=== PATIENT | female | born 1950 | race Caucasian/White ===

== ENCOUNTER → 2017-07-06 09:00 | Outpatient (CLI) | payer MEDICARE, BC ==
[2015-09-15 09:56] VITALS: BMI 30.2
[~2017-07-06 09:00] MED LIST: ACIPHEX20 MG PO; AMOXICILLIN500 M1 PO; ATIVAN0.5 MG PO; BAYER CHEWABLE81 MG PO; BRILINTA90 MG PO; BUPROPION HCL100 M1 PO; BUPROPION HCL200 M1 PO; CATAPRES0.2 MG PO; CELEXA40 MG PO; CORDARONE200 MG PO; CYCLOBENZAPRINE10 MG PO; ESTRACE2 MG PO; HYDROCODONE-APA1 TAB PO; LASIX40 MG PO; LEXAPRO5 MG PO; MOBIC7.5 MG PO; MULTIPLE VITAMI1 TA1 PO; NEURONTIN 300300 MG PO; NEXIUM40 MG PO; NITROSTAT0.4 MG SL; NORVASC5 MG PO; PERCOCET 10/3251 TA1 PO; PREMARIN1.25 MG PO; PRINIVIL20 MG; PROTONIX40 MG PO; REMERON15 MG PO; SYNTHROID75 MCG PO; TIROSINT50 MCG PO; ZESTORETIC 20/21 TAB PO
== END | disposition home or self-care (01) ==
LOC: D.MAMMO 09:00
DX: N64.4 Mastodynia (principal)

== ENCOUNTER → 2017-07-18 07:52 | Outpatient (CLI) | payer MEDICARE, BC ==
[2015-09-15 09:56] VITALS: BMI 30.2
== END ==
LOC: D.MRI 07:52
DX: M75.41 Impingement syndrome of right shoulder (principal)

== ENCOUNTER → 2017-08-24 14:51 | Outpatient (CLI) | payer MEDICARE, BC ==
[2015-09-15 09:56] VITALS: BMI 30.2
== END | disposition home or self-care (01) ==
LOC: D.US 14:51 → D.MRI 16:30
DX: R42 Dizziness and giddiness (principal); R29.898 Other symptoms and signs involving the musculoskeletal system; Z87.898 Personal history of other specified conditions

== ENCOUNTER → 2017-08-29 16:29 | Outpatient (CLI) | payer MEDICARE, BC ==
[2015-09-15 09:56] VITALS: BMI 30.2
== END | disposition home or self-care (01) ==
LOC: D.MAMMO 08-28 08:30 → D.US 08-28 09:30 → D.MAMMO 13:30
DX: R92.8 Other abnormal and inconclusive findings on diagnostic imaging of breast (principal)

== ENCOUNTER 2017-09-03 16:58 | Observation (INO) | payer MEDICARE, BC ==
[~2017-09-03] VITALS: Ht 162.6 cm; Wt 79.8 kg
--- NOTE | ~2017-09-03 | HEMODYNAMI ---
PATIENT:SURAJ GALVIN MEDICAL RECORD: [id number] : 50 LOCATION:[facility] D.2121 ADMISSION DATE: 09/03/17 Generatedon:09/04/201715:13 Patient name: SURAJ GALVIN Patient #: [id number] SSN: D OB: 1950 Date of study: 09/04/2017 Page: Of Hemodynamic Procedure Report Patient Data Patient Demographics Procedure consent was obtained First Name: SURAJ Gender: Female Last Name: GLENIS : 1950 [facility] Initial: D Age: 67 year(s) Patient #: [id number] Race: Additional ID: [id number] Contact details [address]: [address] [place] [address] State: [place] City: [place] Zip code: [address] Past Medical History Allergies Allergen Reaction Date Comments Reported Other allergy 09/10/2015 TIZANIDINE,AND LATEX Other allergy 09/04/2017 TIZANIDINE, LATEX Admission Admission Data Admission Date: 09/03/2017 Admission Time: 19:05 Room #: D.2121 Lab Results Lab Result Date: 09/04/2017 Lab Result Time: 0:00 Biochemistry Name Units Result Min Max BUN mg/dl 22 --(----)-* 7 18 Creatinine mg/dl 1.3 --(---*)-- 0.6 1.3 CBC Name Units Result Min Max Hemoglobin g/dl 13.1 -*(----)-- 13.5 17.5 Procedure Procedure Types Cath Procedure Diagnostic Procedure LHC LHC w/Coronaries PCI Procedure Coronary Stent Coronary Stent Initial Miscellaneous Procedures Moderate Sedation up to 45 minutes Procedure Description Procedure Date Procedure Date: 09/04/2017 Procedure Start Time: 14:33 Procedure End Time: 15:13 Procedure Staff Name Function Ugo Foley MD Performing Physician Shobha Barron RT Scrub Martin Rachel RN Nurse Shiva Mckay RT Monitor Procedure Data Cath Procedure Fluoroscopy Diagnostic fluoroscopy Total fluoroscopy Time: 8 time: 8 min min Diagnostic fluoroscopy Total fluoroscopy dose: 759 dose: 759 mGy mGy Contrast Material Contrast Material Type Amount (ml) Isovue 300 173 Entry Location Entry Primary Successful Side Size Upsize Upsize Entry Closure Succes sful Closure Location (Fr) 1 (Fr) 2 (Fr) Remarks Device Remarks Femoral Right 5 Fr 6 Fr Exoseal artery Short Estimated blood loss: 10 ml Diagnostic catheters Device Type Used For End Catheter Placement DIAGNOSTIC JL 4.0 5Fr Procedure catheter ([id number]) DIAGNOSTIC AR MOD 5Fr Procedure Catheter ([id number]) DIAGNOSTIC Pigtail 5Fr Procedure catheter ([id number]) Procedure Complications No complications Procedure Medications Medication Administration Route Dosage 0.9% NaCl I.V. 100 ml/hr Oxygen NC 2 l/min Heparin Flush Bag added to field 2 bags (1000units/500ml NS) Lidocaine 2% added to field 20 Versed I.V. 1 mg Fentanyl I.V. 50 mcg Heparin Bolus I.V. 7800 units Nitroglycerin IC/IA I.C. 100 mcg Fentanyl I.V. 25 mcg Brilinta P.O. 180 mg Hemodynamics Rest HGB: 13.1 (g/dl) Heart Rate: 63 (bpm) Pressure Samples Time Site Value (mmHg) Purpose Heart Use Rate(bpm) 14:45 LV 120/4,17 Snapshot 66 14:46 AO 139/70(101) Pullback 64 14:46 LV 134/5,20 Pullback 64 Gradients Valve Time Site 1 Site 2 Mean SEP/DFP Peak To Heart Use (mmHg) (sec/min) Peak Rate (mmHg) (bpm) Aortic 14:46 LV AO 0 15 0 64 134/5,20 139/70(101) Calculations Valve P-P Mean Valve Index Valve Source Name Gradient Area Flow (cm2) Aortic 0 0 0 0 Snapshots Pre Cath Intra NCS Post Cath Vital Signs Time Heart Resp SPO2 etCO2 NIBP (mmHg) Rhythm Pain Sedation Rate (ipm) (%) (mmHg) Status Level (bpm) 14:21:48 69 13 95 42.1 119/73(102) NSR 0 (11) 10(A) , No pain 14:26:22 62 16 95 9 118/74(93) NSR 0 (11) 10(A) , No pain 14:30:55 63 26 96 27.1 125/78(109) NSR 0 (11) 10(A) , No pain 14:35:29 63 16 97 39.2 137/76(116) NSR 0 (11) 10(A) , No pain 14:40:07 66 22 96 10.5 127/69(93) NSR 0 (11) 10(A) , No pain 14:44:42 66 20 97 41.4 129/77(113) NSR 0 (11) 10(A) , No pain 14:49:18 64 19 97 41.4 133/78(104) NSR 0 (11) 10(A) , No pain 14:53:57 65 15 97 43.7 119/66(89) NSR 0 (11) 10(A) , No pain 14:58:31 65 19 97 43.7 130/74(94) NSR 0 (11) 10(A) , No pain 15:03:08 66 19 97 43.7 132/71(100) NSR 0 (11) 10(A) , No pain 15:07:46 61 13 97 49.7 106/63(86) NSR 0 (11) 10(A) , No pain 15:12:19 61 11 96 35.4 107/65(86) NSR 0 (11) 10(A) , No pain Medications Time Medication Route Dose Verified Delivered Reason Notes Effectiveness by by 14:19:21 0.9% NaCl I.V. 100 Neo Neo Per physician ml/hr Jorge Patel RN RN 14:19:39 Oxygen NC 2 Neo Neo Per physician l/min Jorge Patel RN RN 14:20:00 Heparin Flush added 2 Neo Neo used for Bag to bags Jorge Patel procedure (1000units/500ml field LANDERS RN NS) 14:20:18 Lidocaine 2% added 20ml Neo Neo for local to vial Jorge Patel anesthetic field LEESA LANDERS 14:33:29 Versed I.V. 1 mg Neo Neo for sedation Jorge Patel RN RN 14:33:39 Fentanyl I.V. 50 Neo Neo for sedation mcg Jorge Patel RN RN 14:49:43 Heparin Bolus I.V. 7,800 Neo Neo for units Jorge harvey RN RN 15:04:39 Nitroglycerin I.C. 100 Neo Ugo for IC/IA mcg Jorge Foley MD vasodilation RN 15:05:39 Fentanyl I.V. 25 Neo Neo for sedation mcg Jorge Patel RN RN 15:09:35 Brilinta P.O. 180 Neo Neo for mg Jorge Patel antiplatelet RN RN therapy Procedure Log Time Note 13:42:13 Shiva Nely RT(R) sent for patient. Start room use. 13:42:14 Time tracking: Regular hours 13:42:19 Plan of Care:Hemodynamics will remain stable., Cardiac rhythm will remain stable., Comfort level will be maintained., Respiratory function will remain adequate., Patient/ family verbilizes understanding of procedure., Procedure tolerated without complication., Recovers from procedure without complications.. 14:03:30 Patient received from Med II to CCL 1 Alert and oriented. Tansferred to table in Supine position. 14:03:34 Warm blankets applied, and christina hugger turned on for patient comfort. 14:03:35 Correct patient and procedure confirmed by team. 14:03:36 Signed procedure consent form obtained from patient. 14:03:38 ECG and BP/O2 sat monitors applied to patient. 14:12:01 Vital chart was started 14:12:03 Baseline sample Acquired. 14:12:17 Rhythm: sinus rhythm 14:12:19 Full Disclosure recording started 14:12:31 H&P Date Dictated: 09/03/2017 Within 30 days and on chart.. 14:12:33 Pre-procedure instructions explained to patient. 14:12:33 Pre-op teaching completed and patient verbalized understanding. 14:12:37 Family in patients room. 14:12:43 Patient NPO since Breakfast. 14:13:02 Patient allergic to Other allergyTIZANIDINE, LATEX 14:13:05 Is the patient allergic to Iodine/contrast media? No. 14:13:08 Is patient on blood thinner?Yes 14:13:18 ACC The patient was administered the following blood thiners within the last 24 hours: ACCAspirin 14:13:21 Patient diabetic? No. 14:13:24 Patient not . Patient is over age 55. 14:13:42 Previous problem with sedation/anesthesia? Yes CONFUSION 14:13:45 Snore? Yes 14:13:46 Sleep apnea? No 14:13:47 Deviated septum? No 14:13:48 Opens mouth fully? Yes 14:13:49 Sticks out tongue? Yes 14:14:19 Airway obstruction? No ? 14:14:24 Dentures? Yes INTIGHT 14:14:30 Pre procedure: right dorsailis pedis pulse 2+ Normal; easily identifiable; not easily obliterated 14:14:34 Patient pain scale 0/10 ?. 14:15:22 IV patent on arrival in left wrist with 0.9% NaCl at [facility]. 14:15:51 Lab Result : BUN 22 mg/dl 14:15:51 Lab Result : Hemoglobin 13.1 g/dl 14:15:51 Lab Result : Creatinine 1.3 mg/dl 14:16:02 Lab results completed and on chart. 14:16:07 Right Radial & Right Groin area was prepped with chlora-prep and draped in sterile fashion 14:16:10 Alarms reviewed by R. N. 14:16:11 Sharps counted by scrub and verified by R.N. 14:19:21 0.9% NaCl 100 ml/hr I.V. was administered by Neo Patel RN; Per physician; 14:19:39 Oxygen 2 l/min NC was administered by Neo Patel RN; Per physician; 14:20:00 Heparin Flush Bag (1000units/500ml NS) 2 bags added to field was administered by Neo Patel RN; used for procedure; 14:20:18 Lidocaine 2% 20ml vial added to field was administered by Neo Patel RN; for local anesthetic; 14:20:52 Vital chart was stopped 14:20:56 Vital chart was started 14:22:20 --------ALL STOP TIME OUT------ 14:22:21 Final Timeout: patient, procedure, and site verified with staff and physician. All members of the team are in agreement. 14:22:25 Right groin site verified by team. 14:22:28 Physical assessment completed. ASA score P 2 - A patient with mild systemic disease as per Ugo Foley MD. 14:22:32 Sedation plan: IV Moderate Sedation Medication:Versed, Fentanyl 14:23:31 ACIST Syringe (89659) opened to sterile field. 14:23:32 ACIST Hand Control (12895) opened to sterile field. 14:23:33 ACIST Manifold (54166) opened to sterile field. 14:23:35 Tegaderm 4 x 4 (1626W) opened to sterile field. 14:23:38 DIAGNOSTIC WIRE .035 260cm J wire (037962) opened to sterile field. 14:23:39 SHEATH 5FR [place] (FAJ509) opened to sterile field. 14:23:40 Bag Decanter (2002S) opened to sterile field. 14:23:44 PERCUTANEOUS ENTRY 19GA needle opened to sterile field. 14:31:08 Zero performed for pressure channel P1 14:33:24 Procedure started. 14:33:29 Versed 1 mg I.V. was administered by Neo Patel RN; for sedation; 14:33:29 Local anesthetic to right femoral artery with Lidocaine 2% by Ugo Foley MD.INITIAL ACCESS ONLY 14:33:39 Fentanyl 50 mcg I.V. was administered by Neo Patel RN; for sedation; 14:34:35 A 5 Fr sheath was inserted into the Right Femoral artery 14:35:25 A DIAGNOSTIC JL 4.0 5Fr catheter ([id number]) was advanced over the wire and used for Procedure. 14:35:46 LCA angiography performed. 14:36:33 Catheter removed. 14:36:53 A DIAGNOSTIC AR MOD 5Fr Catheter (695760P) was advanced over the wire and used for Procedure. 14:37:42 RCA angiography performed. 14:38:34 SVG to Diag occluded. 14:38:47 Catheter removed. 14:39:07 DXT CATHETER ADVANCED OVER THE WIRE TO SEE THE TURNER 14:40:37 TURNER to LAD angiography performed. 14:44:24 Catheter exchanged over wire. 14:44:28 A DIAGNOSTIC Pigtail 5Fr catheter (721259V) was advanced over the wire and used for Procedure. 14:44:58 INFLATOR Merit BasixCompak (VE9121) opened to sterile field. 14:44:59 SHEATH 6FR [place] (HQM729) opened to sterile field. 14:44:59 TUBING High Pressure Extension Tubing (Og) ([id number]) opened to sterile field. 14:45:55 EF : 60 % 14:46:07 LV hemodynamics recorded. 14:46:09 LV gram done using ORDAZ 14:46:11 Injector settings: Ml/sec: 10, Volume: 20, 14:46:15 Catheter removed. 14:46:23 Sheath upsized to a 6 Fr Short. 14:46:50 BMW 300cm Enterprise 2 J wire (4468415V) opened to sterile field. 14:47:37 GUIDE 6FR XBLAD 3.5 catheter ([id number]) opened to sterile field. 14:47:45 6 Fr XBLAD 3.5 guide catheter was inserted over the wire 14:49:08 BMW wire advanced. 14:49:43 Heparin Bolus 7,800 units I.V. was administered by Neo Patel RN; for anticoagulation; 14:51:30 Wire advanced across lesion. 14:53:54 Inflation number: 1 A EUPHORA 2.0 x 12 Balloon ([id number]) was prepped and advanced across the Dist LAD, then inflated to 8 SHRUTHI for 0:10 (min:sec). 14:54:54 Inflation number: 2 The EUPHORA 2.0 x 12 Balloon ([id number]) was reinflated across the Dist LAD, to 10 SHRUTHI for 0:10 (min:sec). 14:57:57 Balloon removed over the wire. 15:01:53 Inflation Number: 3 A NICOLLE OTW 2.5 x 22 stent ([id number]) was prepped and advanced across the Dist LAD. The stent was deployed at 10 SHRUTHI for 0:10 (min:sec). 15:04:39 Nitroglycerin IC/IA 100 mcg I.C. was administered by Ugo Foley MD; for vasodilation; 15:05:27 Stent catheter was removed intact over wire. 15:05:39 Fentanyl 25 mcg I.V. was administered by Neo Patel RN; for sedation; 15:05:40 Wire removed. 15:05:59 Guide catheter removed. 15:07:05 EXOSEAL 6Fr (EX600) opened to sterile field. 15:07:13 Procedure ended.(Physican Out) 15:07:24 Sheath removed intact; hemostasis achieved with Exoseal to the Right Femoral artery. 15:08:09 Fluoroscopy time 08.00 minutes. 15:08:13 Flurop Dose total: 759 15:08:13 Fluoroscopy dose: 759 mGy 15:08:17 Contrast amount:Isovue 300 173ml. 15:08:19 Sharps counted by scrub and verified by R.N. 15:08:21 Insertion/operative site no bleeding no hematoma. 15:08:25 Post-op/insertion site Right Femoral artery dressed using a 4 x 4 and Tegaderm. 15:08:27 Post Procedure Pulses reassessed and unchanged 15:08:29 Post procedure: right dorsailis pedis pulse 2+ Normal; easily identifiable; not easily obliterated. 15:08:34 Post-procedure physical assessment completed. ASA score P 2 - A patient with mild systemic disease as per Ugo Foley MD. 15:08:37 Post procedure rhythm: unchanged. 15:08:40 Estimated blood loss: 10 ml 15:08:42 Post procedure instruction explained to patient.Patient verbalizes understanding. 15:08:46 Patient needs reinforcement of post procedure teaching. 15:09:35 Brilinta 180 mg P.O. was administered by Neo Patel RN; for antiplatelet therapy; 15:09:37 Procedure type changed to Cath procedure, Diagnostic procedure, LHC, LHC w/Coronaries, PCI procedure, Coronary Stent, Coronary Stent Initial, Miscellaneous Procedures, Moderate Sedation up to 45 minutes 15:11:40 Procedure and supply charges have been captured, reviewed, submitted and are correct. 15:11:42 Procedure Complication : No complications 15:11:47 See physician's report for complete and final results. 15:11:50 Report given to PCU. 15:11:54 Patient transfered to PCU with Bed. 15:13:17 Procedure ended. 15:13:17 Full Disclosure recording stopped 15:13:23 End room use (Document Last) 15:13:36 Vital chart was stopped Intervention Summary Intervention Notes Time ActionType Lesion and Equipment Action# Pressure Duration Attributes Used 14:53:54 Inflate Dist LAD EUPHORA 2.0 x 1 8 00:10 balloon 12 Balloon ([id number]) 14:54:54 Reinflate Dist LAD EUPHORA 2.0 x 2 10 00:10 balloon 12 Balloon ([id number]) 15:01:53 Place stent Dist LAD NICOLLE OTW 2.5 3 10 00:10 x 22 stent ([id number]) Device Usage Item Name Manufacture Quantity Catalog Hospital Part Current Minim al Lot# / Number Charge Number Stock Stock Serial# Code ACIST Syringe Acist 1 75250 810453 382038 488758 20 (10213) Medical Systems Inc ACIST Hand Acist 1 76567 374012 977333 477517 5 Control Medical (73726) Systems Inc ACIST Acist 1 37538 556974 599405 772133 5 Manifold Medical (29817) Systems Inc Tegaderm 4 x 3M 1 1626W 522304 159362 736450 5 4 (1626W) DIAGNOSTIC St Manuel 1 803457 041857 098251 916453 30 WIRE .035 260cm J wire (316196) SHEATH 5FR Terumo 1 ITZ548 211165 176172 274665 40 [place] (LNZ649) Bag Decanter Microtek 1 2001S 774940 41475 849568 5 (2001S) Medical Inc. PERCUTANEOUS Cook Medical 1 K12787 311217 989974 5 ENTRY 19GA needle DIAGNOSTIC JL Cardinal 1 869977D 400493 293104 362035 10 4.0 5Fr Health catheter (025941L) DIAGNOSTIC AR Cardinal 1 [id number] 494145 917691 528985 15 MOD 5Fr Health Catheter (048624L) DIAGNOSTIC Cardinal 1 093119L 795246 028829 998881 5 Pigtail 5Fr Health catheter (743984S) INFLATOR Merit 1 WN5696 994115 684424 531191 15 [facility] Medical BasixCompak (QL7092) SHEATH 6FR Terumo 1 UEC398 000876 114876 198487 40 [place] (ERI577) TUBING High Merit 1 NS4788C 470920 64910 512843 10 Pressure Medical Extension Tubing (Foley) (XM4007S) BMW 300cm Harrington 1 [id number] 304431 260753 649223 5 Enterprise 2 J Vascular wire (0106465H) GUIDE 6FR Cardinal 1 49688143 325317 347542 882829 10 XBLAD 3.5 Health catheter (55927752) EUPHORA 2.0 x Medtronic 1 [id number] 528039 333727 641747 5 [id number] 12 Balloon (XLP1537U) NICOLLE OTW 2.5 Medtronic 1 [id number] 554608 25695 163289 5 [id number] x 22 stent ([id number]) EXOSEAL 6Fr Cardinal 1 EX600 446131 515135 917218 10 (EX600) Health Signature Audit Robbins Stage Time Signature Unsigned Intra-Procedure 09/04/2017 Shobha Barron 3:13:34 PM RT(R) Signatures Monitor : Shiva Mckay RT Signature : Date : Time : [address] [place] [address]
[~2017-09-03 16:58] MED LIST changes: -ACIPHEX20 MG PO; -ATIVAN0.5 MG PO; -BRILINTA90 MG PO; -BUPROPION HCL200 M1 PO; -NITROSTAT0.4 MG SL
[2017-09-03 17:33] LABS: BASOPHILS 1.2 % (0-2); EOSINOPHILS 7.8 % (0-7); HEMOGLOBIN 13.1 g/dL (12-16); LYMPHOCYTES 43.8 % (15-50); MCH 33.2 pg (26.0-34.0); MCHC 33.6 g/dL (31.0-37.0); MCV 98.7 fL (80.0-100.0); MEAN PLATELET VOLUME 9.4 fL (7.4-10.4); MONOCYTES 8.6 % (2-11); NEUTROPHILS 38.6 % (40-80); RBC 3.95 10x6/uL (4.00-5.40); RDW 12.5 % (11.5-14.5); WBC 6.9 10x3/uL (4.8-10.8)
[2017-09-03 17:55] LABS: PLATELET COUNT 307 10x3/uL (130-400)
[2017-09-03 18:10] LABS: ALBUMIN 3.1 g/dL (3.4-5.0); ALKALINE PHOSPHATASE 74 U/L (46-116); ALT (SGPT) 32 U/L (10-68); BILIRUBIN - TOTAL 0.44 mg/dL (0.2-1.3); CALC OSMOLALITY 280 mosm/kg (275-300); CALCIUM 8.9 mg/dL (8.5-10.1); CARBON DIOXIDE 31.5 mmol/L (21.0-32.0); CHLORIDE - SERUM 98 mmol/L (98-107); CREATININE - SERUM 1.3 mg/dL (0.6-1.3); GLUCOSE 88 mg/dL (74-106); POTASSIUM - SERUM 3.8 mmol/L (3.5-5.1); PROTEIN - SERUM 7.1 g/dL (6.4-8.2); SODIUM 140 mmol/L (136-145); UREA NITROGEN 22 mg/dL (7-18); eGFR NON AFRICAN AMERICAN 43 mL/min (90-120)
[2017-09-03 18:22] LABS: CHOL - HDL RATIO 4.5 ratio (2.3-4.1); CHOLESTEROL, TOTAL 236 mg/dL (0-200); CKMB 1.1 U/L (0.0-3.6); CREATINE KINASE 76 UL (21-215); HDL CHOLESTEROL 52 mg/dL (32-96); LDL CHOLESTEROL 138 mg/dL (0-100); LDL-HDL RATIO 2.7 ratio (1.5-3.5); PRO BNP 502 pg/mL (0-125); TRIGLYCERIDE 230 mg/dL (30-200)
[2017-09-03 18:26] LABS: TROPONIN-I < 0.017 ng/mL (0.000-0.060)
[2017-09-03 20:05] LABS: CREATINE KINASE 73 UL (21-215)
[2017-09-03 20:21] LABS: TROPONIN-I < 0.017 ng/mL (0.000-0.060)
--- NOTE | 2017-09-03 20:42 | NUR ---
REPORT RECIEVED FROM GLEN IN ER.
--- NOTE | 2017-09-03 21:15 | NUR ---
ADMIT TO ROOM 2121 FROM ER. ALERT/ORIENTED. ADMISSION ASSESMENT AND HISTORY COMPLETED. HOME MEDS REVIEWED. INITIATE PLAN OF CARE.
[2017-09-03 21:44] VITALS: BP 130/72
--- NOTE | 2017-09-03 22:09 | NUR ---
PT C/O CHEST PRESSURE/DISCOMFORT. SR PER TELEMETRY. MORPHINE 4MGS SIVP GIVEN AD O2 @ 2L/NC IN PLACE. WILL MONITOR.
--- NOTE | 2017-09-03 23:40 | NUR ---
PT STILL WANTING TO HAVE HER IV MOVED OUT OF HER LEFT A/C. REMOVED LEFT A/C IV AMD SITED NEW 20G X 1 ATTEMPT TO LFA. PT NOW HAPPY.
[2017-09-04] VITALS: BP 107/58
[2017-09-04 02:09] LABS: CKMB 1.3 U/L (0.0-3.6); CREATINE KINASE 77 UL (21-215); TROPONIN-I < 0.017 ng/mL (0.000-0.060)
[2017-09-04 04:00] VITALS: BP 105/55
--- NOTE | 2017-09-04 07:15 | NUR ---
RESTING QUIETLY DENIES ANY NEEDS OR DISCOMFORT NAD NOTED
[2017-09-04 07:25] VITALS: BP 130/72
[2017-09-04 07:47] VITALS: BP 101/54
[2017-09-04] MEDS ORDERED: BUPROPION HCL200 M1 PO (07:56)
[2017-09-04] MEDS ORDERED: CELEXA40 MG PO (07:57)
[2017-09-04 08:01] LABS: BASOPHILS 0.9 % (0-2); EOSINOPHILS 10.8 % (0-7); HEMATOCRIT 41.5 % (36.0-48.0); HEMOGLOBIN 13.8 g/dL (12-16); IMMATURE GRANULOCYTES 0.1 % (0-5); LYMPHOCYTES 49.2 % (15-50); MCH 33.5 pg (26.0-34.0); MCHC 33.3 g/dL (31.0-37.0); MEAN PLATELET VOLUME 9.6 fL (7.4-10.4); PLATELET COUNT 329 10x3/uL (130-400); RBC 4.12 10x6/uL (4.00-5.40); RDW 12.8 % (11.5-14.5); WBC 6.9 10x3/uL (4.8-10.8)
[2017-09-04] MEDS ORDERED: ATIVAN0.5 MG PO (08:03)
[2017-09-04] MEDS ORDERED: ACIPHEX20 MG PO (08:05)
[2017-09-04 08:07] LABS: MCV 100.7 fL (80.0-100.0)
[2017-09-04] MEDS ORDERED: NITROSTAT0.4 MG SL (08:08)
[2017-09-04 08:28] LABS: CALC OSMOLALITY 279 mosm/kg (275-300); CALCIUM 9.1 mg/dL (8.5-10.1); CARBON DIOXIDE 34.8 mmol/L (21.0-32.0); CHLORIDE - SERUM 99 mmol/L (98-107); CKMB 1.5 U/L (0.0-3.6); CREATINE KINASE 86 UL (21-215); CREATININE - SERUM 1.1 mg/dL (0.6-1.3); GLUCOSE 91 mg/dL (74-106); POTASSIUM - SERUM 3.9 mmol/L (3.5-5.1); SODIUM 139 mmol/L (136-145); TROPONIN-I < 0.017 ng/mL (0.000-0.060); UREA NITROGEN 17 mg/dL (7-18); eGFR NON AFRICAN AMERICAN 52 mL/min (90-120)
--- NOTE | 2017-09-04 08:31 | NUR ---
ASSESSMENT DONE. DENIES NEEDS. NPO FOR CATH
[2017-09-04 11:31] VITALS: BP 108/62
[2017-09-04 13:15] VITALS: Ht 162.6 cm; Wt 79.8 kg
--- NOTE | 2017-09-04 14:05 | NUR ---
TO COURSEWARE DEVELOPER PER BED
--- NOTE | 2017-09-04 15:30 | NUR ---
RETURN FROM [employer] PER BED. DRSG TO RT GROIN C/D/I, PULSE PALP
[2017-09-04 15:40] VITALS: BP 108/60
[2017-09-04] MEDS ORDERED: BRILINTA90 MG PO (17:09)
--- NOTE | 2017-09-04 17:28 | NUR ---
WITHOUT CHANGES OR DISTRESS NOTED AT THIS TIME. FAMILY AT SIDE.
--- NOTE | 2017-09-04 19:30 | NUR ---
PT SET UP IN BED. NO BLEEDING TO RIGHT GROIN. PT DENIES ANY DISCOMFORT. WENT OVER DISCHARGE INSTRUCTIONS WITH PT AND DAUGHTER. PT AND DAUGHTER DENY ANY QUESTIONS OR CONCERNS. IV REMOVED FROM LEFT WRIST. CATH INTACT. TELEMETRY REMOVED AND RETURNED TO SENIOR AUDIT MANAGER. ALL BELONGINGS TAKEN FROM ROOM AND PT TRANSPORTED TO VEHICLE VIA WHEEL CHAIR BY DAIANA LANDERS. PT TO PASSENGER SEAT WITH STAND BY ASSIST. PT DISCHARGED.
== END 2017-09-04 20:05 | disposition home or self-care (01) ==
LOC: D.ER 16:58 → OBSVTIME 19:05 → D.M2 19:05
PROVIDERS: Family Medicine; ADMIT Internal Medicine Cardiovascular Disease
DX: I25.110 Atherosclerotic heart disease of native coronary artery with unstable angina pectoris (principal); Z95.1 Presence of aortocoronary bypass graft; I10 Essential (primary) hypertension; I34.0 Nonrheumatic mitral (valve) insufficiency; I45.10 Unspecified right bundle-branch block
CPT/HCPCS: 93459; C9600

== ENCOUNTER 2017-10-18 17:37 | Inpatient (IN) | payer MEDICARE, BC ==
[~2017-10-18] VITALS: Ht 160 cm; Wt 72.0 kg
--- NOTE | ~2017-10-18 | HP ---
PATIENT: SURAJ TY MEDICAL RECORD: [id number] ACCOUNT: [id number] LOCATION:[address] : 50 ADMISSION DATE: 10/18/17 HISTORY AND PHYSICAL EXAMINATION HISTORY OF PRESENT ILLNESS: Ms. Ty is a 67-year-old white female that is patient of Dr. Foley. She lives in [place] where her primary care physician is there, who presents to the hospital here with just generalized weakness and body jerking. She underwent stenting here approximately [address] Foley. She has a known history of coronary artery disease and has had a previous bypass surgery about 2 years ago. After receiving stent, she apparently developed a bad UTI and was hospitalized at [facility] for over a week where she subsequently went home. Since being at home, she has just not done very well, she has not ambulated much, she has been tired, just not doing very much. She is having difficulties with ambulating and she has had jerking in her lower leg. She does have restless leg syndrome, but states this seems more like her legs are jerking hard. PAST MEDICAL HISTORY: Significant for known coronary artery disease, hypertension, mitral valve regurg, depression, right bundle-branch block, hypothyroidism, chronic orthopedic issues. PAST SURGICAL HISTORY: Include gallbladder surgery, hysterectomy, left knee replacement, right ankle replacement, CABG in 2014, PTCA a month ago. ALLERGIES: TIZANIDINE AND LASIX. HOME MEDICATIONS: At this time include cyclobenzaprine 10 mg daily, Brilinta 90 mg b.i.d., lisinopril and hydrochlorothiazide 20/25, Celexa 40 mg a day, baby aspirin a day, gabapentin 800 mg t.i.d., bupropion SR 200 mg b.i.d., lorazepam 0.5 p.r.n., meloxicam 7.5 a day, oxycodone 10/325 p.r.n., furosemide 60 mg a day, Aciphex 20 mg a day, levothyroxine 75 mcg a day, estradiol 2 mg daily, and a multivitamin. FAMILY HISTORY: Noncontributory. SOCIAL HISTORY: The patient does not smoke or drink. REVIEW OF SYSTEMS: Generalized weakness, jerking in her legs, chronic restless leg. She has had no chest pain, no shortness of breath, no nausea or vomiting. She does complain of left shoulder pain and hardly being able to move her shoulder. Her x-ray shows nothing acute right now. PHYSICAL EXAMINATION: GENERAL: She is conversive. She is alert and oriented. HEENT: Head is normocephalic. NECK: Soft and supple. HEART: Regular. LUNGS: Good breath sounds bilaterally. ABDOMEN: Soft. EXTREMITIES: Lower extremities reveal no edema. NEUROLOGIC: Grossly intact. IMPRESSION: 1. Generalized weakness. HISTORY AND PHYSICAL [id number] SURAJ TY 2. Recent hospitalization for sepsis. 3. Recent percutaneous transluminal coronary angioplasty. 4. Muscle spasms. 5. Coronary artery disease. 6. Hypothyroidism. 7. Chronic anxiety and depression. 7. Hypertension. PLAN: Admit, IV fluids. She has got a certain amount of renal insufficiency right now. She is also hyponatremic. Her sodium is improving. Her TSH is slightly off, but is not enough to change medicine. Her magnesium levels are okay. We will get a physical therapy consult. She may benefit from some inpatient rehabilitation eventually. We will continue pain medicines well. She might benefit from an injection to her shoulder. We will consult Dr. Foley on med. We will hold her estradiol and meloxicam due to recent stenting. See orders for plan. TRANSINT:[id number] Voice Confirmation ID: [id number] DOCUMENT ID: [id number] ROSAURA ORTEZ DO at 1545 CC: [id number] DICTATION DATE: 10/19/17 1043 TECHNICAL WRITING LEAD/MGR: 10/19/17 1203 ADM IN [address] [address] [place] [address]
[~2017-10-18 17:37] MED LIST changes: +ACIPHEX20 MG PO; +ATIVAN0.5 MG PO; +BRILINTA90 MG PO; +BUPROPION HCL200 M1 PO; +NITROSTAT0.4 MG SL
[2017-10-18 18:50] LABS: BASOPHILS 0.6 % (0-2); EOSINOPHILS 10.6 % (0-7); HEMATOCRIT 36.3 % (36.0-48.0); HEMOGLOBIN 12.3 g/dL (12-16); IMMATURE GRANULOCYTES 0.1 % (0-5); MCH 32.9 pg (26.0-34.0); MCHC 33.9 g/dL (31.0-37.0); MCV 97.1 fL (80.0-100.0); MEAN PLATELET VOLUME 9.4 fL (7.4-10.4); MONOCYTES 13.8 % (2-11); NEUTROPHILS 42.9 % (40-80); PLATELET COUNT 321 10x3/uL (130-400); RBC 3.74 10x6/uL (4.00-5.40); RDW 12.8 % (11.5-14.5); WBC 6.9 10x3/uL (4.8-10.8)
[2017-10-18 19:10] LABS: ALBUMIN 3.1 g/dL (3.4-5.0); ANION GAP 12.6 mmol/L (8-16); BILIRUBIN - TOTAL 0.58 mg/dL (0.2-1.3); CARBON DIOXIDE 29.2 mmol/L (21.0-32.0); CREATININE - SERUM 1.9 mg/dL (0.6-1.3); POTASSIUM - SERUM 3.8 mmol/L (3.5-5.1); PROTEIN - SERUM 6.7 g/dL (6.4-8.2)
[2017-10-18 19:11] LABS: APPEARANCE CLEAR (CLEAR); BILIRUBIN NEGATIVE (NEGATIVE); COLOR YELLOW (YELLOW); GLUCOSE NEGATIVE (NEGATIVE); KETONE NEGATIVE (NEGATIVE); NITRITE NEGATIVE (NEGATIVE); PROTEIN NEGATIVE (NEGATIVE); SPECIFIC GRAVITY 1.015 (1.005-1.020); UROBILINOGEN NORMAL (NORMAL)
[2017-10-18 20:42] LABS: MAGNESIUM - SERUM 2.2 mg/dL (1.8-2.4); THYROID STIMULATING HORMONE 5.62 uIU/mL (0.36-3.74)
[2017-10-19 03:36] VITALS: BP 124/52; BMI 29.2
[2017-10-19 04:45] LABS: EOSINOPHILS 13.3 % (0-7); HEMATOCRIT 34.8 % (36.0-48.0); HEMOGLOBIN 11.8 g/dL (12-16); IMMATURE GRANULOCYTES 0.1 % (0-5); LYMPHOCYTES 43.7 % (15-50); MCH 32.9 pg (26.0-34.0); MCHC 33.9 g/dL (31.0-37.0); MCV 96.9 fL (80.0-100.0); MEAN PLATELET VOLUME 9.4 fL (7.4-10.4); MONOCYTES 13.7 % (2-11); NEUTROPHILS 28.2 % (40-80); PLATELET COUNT 325 10x3/uL (130-400); RBC 3.59 10x6/uL (4.00-5.40); RDW 12.7 % (11.5-14.5); WBC 7.2 10x3/uL (4.8-10.8)
[2017-10-19 04:58] LABS: ANION GAP 11.2 mmol/L (8-16); CALCIUM 8.5 mg/dL (8.5-10.1); CARBON DIOXIDE 29.4 mmol/L (21.0-32.0); CREATININE - SERUM 1.7 mg/dL (0.6-1.3); POTASSIUM - SERUM 3.6 mmol/L (3.5-5.1)
[2017-10-19 08:49] VITALS: BP 110/70
[2017-10-19 14:34] VITALS: Ht 160 cm; Wt 72.0 kg
[2017-10-19 21:10] VITALS: BP 112/67
[2017-10-20 02:43] VITALS: BP 83/45
[2017-10-20 05:44] LABS: BASOPHILS 0.6 % (0-2); EOSINOPHILS 11.3 % (0-7); HEMATOCRIT 34.7 % (36.0-48.0); HEMOGLOBIN 11.7 g/dL (12-16); IMMATURE GRANULOCYTES 0.1 % (0-5); LYMPHOCYTES 29.8 % (15-50); MCH 32.9 pg (26.0-34.0); MCHC 33.7 g/dL (31.0-37.0); MCV 97.5 fL (80.0-100.0); MEAN PLATELET VOLUME 9.6 fL (7.4-10.4); MONOCYTES 14.3 % (2-11); NEUTROPHILS 43.9 % (40-80); PLATELET COUNT 315 10x3/uL (130-400); RBC 3.56 10x6/uL (4.00-5.40); WBC 8.3 10x3/uL (4.8-10.8)
[2017-10-20 05:57] LABS: ANION GAP 12.9 mmol/L (8-16); CALCIUM 8.9 mg/dL (8.5-10.1); CARBON DIOXIDE 29.8 mmol/L (21.0-32.0); CREATININE - SERUM 1.5 mg/dL (0.6-1.3); POTASSIUM - SERUM 3.7 mmol/L (3.5-5.1)
[2017-10-20 09:21] VITALS: BP 123/60
[2017-10-20 11:53] VITALS: BP 117/63
[2017-10-20 15:06] VITALS: BP 112/69
[2017-10-20 20:00] VITALS: BP 124/69
[2017-10-21] VITALS: BP 152/53
[2017-10-21 05:26] LABS: EOSINOPHILS 13.4 % (0-7); HEMATOCRIT 34.9 % (36.0-48.0); HEMOGLOBIN 11.7 g/dL (12-16); IMMATURE GRANULOCYTES 0.1 % (0-5); LYMPHOCYTES 35.8 % (15-50); MCH 32.8 pg (26.0-34.0); MCHC 33.5 g/dL (31.0-37.0); MCV 97.8 fL (80.0-100.0); MEAN PLATELET VOLUME 9.5 fL (7.4-10.4); MONOCYTES 10.9 % (2-11); NEUTROPHILS 38.8 % (40-80); PLATELET COUNT 302 10x3/uL (130-400); RBC 3.57 10x6/uL (4.00-5.40); WBC 8.2 10x3/uL (4.8-10.8)
[2017-10-21 05:50] LABS: ANION GAP 11.1 mmol/L (8-16); CARBON DIOXIDE 31.2 mmol/L (21.0-32.0); CREATININE - SERUM 1.3 mg/dL (0.6-1.3); POTASSIUM - SERUM 3.3 mmol/L (3.5-5.1)
[2017-10-21 08:01] VITALS: BP 131/62
[2017-10-21 11:26] VITALS: BP 120/57
[2017-10-21 15:52] VITALS: BP 128/66
[2017-10-21 20:00] VITALS: BP 117/67
[2017-10-22] VITALS: BP 120/54
[2017-10-22 04:00] VITALS: BP 101/54
[2017-10-22 05:40] LABS: BASOPHILS 0.7 % (0-2); EOSINOPHILS 10.3 % (0-7); HEMOGLOBIN 12.1 g/dL (12-16); IMMATURE GRANULOCYTES 0.1 % (0-5); LYMPHOCYTES 45.7 % (15-50); MCH 32.9 pg (26.0-34.0); MCHC 33.6 g/dL (31.0-37.0); MCV 97.8 fL (80.0-100.0); MEAN PLATELET VOLUME 9.4 fL (7.4-10.4); MONOCYTES 11.3 % (2-11); NEUTROPHILS 31.9 % (40-80); PLATELET COUNT 322 10x3/uL (130-400); RBC 3.68 10x6/uL (4.00-5.40); RDW 13.2 % (11.5-14.5); WBC 8.1 10x3/uL (4.8-10.8)
[2017-10-22 06:06] LABS: ANION GAP 11.3 mmol/L (8-16); CALCIUM 9.4 mg/dL (8.5-10.1); CARBON DIOXIDE 29.9 mmol/L (21.0-32.0); CREATININE - SERUM 1.1 mg/dL (0.6-1.3); POTASSIUM - SERUM 4.2 mmol/L (3.5-5.1)
[2017-10-22 08:20] VITALS: BP 141/54
[2017-10-22 12:19] VITALS: BP 113/58
== END 2017-10-22 15:29 | disposition home health service (06) | DRG 641 ==
LOC: D.ER 17:37 → D.M2 21:35
PROVIDERS: Emergency Medicine; Family Medicine
DX: E87.1 Hypo-osmolality and hyponatremia (principal); M75.122 Complete rotator cuff tear or rupture of left shoulder, not specified as traumatic; R41.0 Disorientation, unspecified; W19.XXXA Unspecified fall, initial encounter; Z91.81 History of falling; G25.81 Restless legs syndrome; I25.10 Atherosclerotic heart disease of native coronary artery without angina pectoris; I10 Essential (primary) hypertension; F32.9 Major depressive disorder, single episode, unspecified; F41.9 Anxiety disorder, unspecified; E03.9 Hypothyroidism, unspecified; Z95.1 Presence of aortocoronary bypass graft; N28.9 Disorder of kidney and ureter, unspecified

== ENCOUNTER 2017-10-25 13:52 | Inpatient (IN) | payer MEDICARE, BC ==
[~2017-10-25] VITALS: Ht 160 cm; Wt 72.7 kg
--- NOTE | ~2017-10-25 | CN ---
PATIENT NAME:SURAJ GALVIN MEDICAL RECORD: [id number] : 50 LOCATION:[address] ADMIT DATE: 10/25/17 ACCOUNT: [id number] CONSULTING PHYSICIAN: ERIC MCCRACKEN III, MD REFERRING PHYSICIAN: GUILLERMO PAUL MD DATE OF CONSULTATION: 10/26/2017 HISTORY OF PRESENT ILLNESS: This is a 67-year-old white female, who was admitted to the hospital yesterday with episodes of weakness and apparent confusion. The patient's previous history was reviewed. The patient had been seen in consultation by this examiner approximately 3 years ago subsequent to a postoperative delirium she exhibited after coronary artery bypass graft. The patient at that time was treated with low dose haloperidol with good resolution of her symptoms. It was not intended at that time that the patient should continue on neuroleptic medication. The patient does have a previous history of anxiety and depression. However, there is no documentation at all of a previous primary psychotic disorder. Nonetheless, the patient was being treated with a wide array of psychotropic medications at the time of admission including routine doses of Haldol, Cogentin, Invega, large dose of Cymbalta, and Klonopin. It should be noted that the patient has had several recent falls. It should also be noted that the patient does have active coronary artery disease. It is not known whether or not she has had neuropsychological testing. The patient herself admits to occasional memory lapses. MENTAL STATUS EXAM: The patient is very pleasant. Mood is euthymic. Affect is bland. Speech is fluent. Content of thought is negative for psychotic symptoms. On sensorium testing, the patient is oriented to person, place, and time. She knows the correct day of the week. Remote, intermediate, and short-term recalling are good. The patient does admit to previous history of depression as well as persistent anxiety. The patient is currently being treated with combination of Wellbutrin and Cymbalta. She had actually been treated with Wellbutrin at some point in the past, but previous recommendation by this examiner was to discontinue this medication; however, it has been continued with the additional meds being added at some point. 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 RECOMMENDATIONS: 1. At this point, the patient does not appear to have any need for antipsychotic medication. Case was discussed with Dr. Paul and medications will be simplified. 2. We would recommend follow up at [facility] in the near future for reassessment. CONSULT REPORT [id number] SURAJ GALVIN TRANSINT:[id number] Voice Confirmation ID: [id number] DOCUMENT ID: [id number] ERIC MCCRACKEN III, MD at 0727 CC: [id number] DICTATION DATE: 10/26/17 1207 NETWORK FIREWALL ENGINEER: 10/26/17 1231 ADM IN [address] [address] [place] [address]
[2017-10-25 16:57] LABS: BASOPHILS 1.2 % (0-2); EOSINOPHILS 6.6 % (0-7); HEMATOCRIT 37.7 % (36.0-48.0); HEMOGLOBIN 12.6 g/dL (12-16); LYMPHOCYTES 43.8 % (15-50); MCH 33.3 pg (26.0-34.0); MCHC 33.4 g/dL (31.0-37.0); MCV 99.7 fL (80.0-100.0); MEAN PLATELET VOLUME 9.3 fL (7.4-10.4); MONOCYTES 12.2 % (2-11); NEUTROPHILS 36.2 % (40-80); PLATELET COUNT 363 10x3/uL (130-400); RBC 3.78 10x6/uL (4.00-5.40); RDW 13.3 % (11.5-14.5); WBC 6.7 10x3/uL (4.8-10.8)
[2017-10-25 17:11] LABS: ALBUMIN 3.5 g/dL (3.4-5.0); ANION GAP 11.6 mmol/L (8-16); BILIRUBIN - TOTAL 0.62 mg/dL (0.2-1.3); CALCIUM 9.1 mg/dL (8.5-10.1); CARBON DIOXIDE 29.3 mmol/L (21.0-32.0); CREATININE - SERUM 1.2 mg/dL (0.6-1.3); POTASSIUM - SERUM 3.9 mmol/L (3.5-5.1); PROTEIN - SERUM 7.3 g/dL (6.4-8.2)
[2017-10-25 17:11] LABS: INR 0.97 (0.85-1.17); PROTIME 12.5 SECONDS (11.6-15.0)
[2017-10-25 17:14] LABS: APPEARANCE HAZY (CLEAR); BILIRUBIN NEGATIVE (NEGATIVE); COLOR DK YELLOW (YELLOW); GLUCOSE NEGATIVE (NEGATIVE); KETONE NEGATIVE (NEGATIVE); NITRITE NEGATIVE (NEGATIVE); PROTEIN NEGATIVE (NEGATIVE); UROBILINOGEN NORMAL (NORMAL)
[2017-10-25 17:30] LABS: CKMB 1.1 U/L (0.0-3.6); CREATINE KINASE 66 UL (21-215)
[2017-10-25 17:40] LABS: TROPONIN-I < 0.017 ng/mL (0.000-0.060)
[2017-10-25 21:06] LABS: UDS - AMPHET NEGATIVE QUAL (NEGATIVE); UDS - BARB NEGATIVE QUAL (NEGATIVE); UDS - BENZO NEGATIVE QUAL (NEGATIVE); UDS - COCAINE NEGATIVE QUAL (NEGATIVE); UDS - OPIATE NEGATIVE QUAL (NEGATIVE); UDS - PCP NEGATIVE QUAL (NEGATIVE); UDS - THC NEGATIVE QUAL (NEGATIVE)
[2017-10-25 22:40] VITALS: BP 130/72; BMI 28.4
[2017-10-26 04:00] VITALS: BP 115/65
[2017-10-26 05:45] LABS: BASOPHILS 0.8 % (0-2); EOSINOPHILS 5.9 % (0-7); HEMATOCRIT 32.7 % (36.0-48.0); HEMOGLOBIN 10.7 g/dL (12-16); IMMATURE GRANULOCYTES 0.3 % (0-5); LYMPHOCYTES 40.2 % (15-50); MCH 32.8 pg (26.0-34.0); MCHC 32.7 g/dL (31.0-37.0); MCV 100.3 fL (80.0-100.0); MEAN PLATELET VOLUME 9.2 fL (7.4-10.4); MONOCYTES 9.4 % (2-11); NEUTROPHILS 43.4 % (40-80); PLATELET COUNT 319 10x3/uL (130-400); RBC 3.26 10x6/uL (4.00-5.40); RDW 13.3 % (11.5-14.5); WBC 7.2 10x3/uL (4.8-10.8)
[2017-10-26 06:12] LABS: ANION GAP 10.4 mmol/L (8-16); BILIRUBIN - TOTAL 0.41 mg/dL (0.2-1.3); CALCIUM 8.2 mg/dL (8.5-10.1); CARBON DIOXIDE 27.6 mmol/L (21.0-32.0); CREATININE - SERUM 1.1 mg/dL (0.6-1.3); PROTEIN - SERUM 5.6 g/dL (6.4-8.2)
[2017-10-26 06:13] LABS: ALBUMIN 2.5 g/dL (3.4-5.0)
[2017-10-26 08:55] VITALS: BP 132/69
[2017-10-26 13:01] VITALS: BP 122/68
[2017-10-26 16:26] VITALS: Ht 160 cm; Wt 72.7 kg
[2017-10-26 16:31] VITALS: BP 121/65
[2017-10-26 23:18] VITALS: BP 129/52
[2017-10-27 02:11] VITALS: BP 146/67
[2017-10-27 04:56] VITALS: BP 113/75
[2017-10-27 05:58] LABS: HEMATOCRIT 35.8 % (36.0-48.0); LYMPHOCYTES 45.1 % (15-50); MCH 32.9 pg (26.0-34.0); MCHC 33.5 g/dL (31.0-37.0); MEAN PLATELET VOLUME 8.6 fL (7.4-10.4); NEUTROPHILS 43.3 % (40-80); PLATELET COUNT 369 10x3/uL (130-400); RBC 3.65 10x6/uL (4.00-5.40); RDW 12.8 % (11.5-14.5); WBC 6.8 10x3/uL (4.8-10.8)
[2017-10-27 06:09] LABS: MCV 98.1 fL (80.0-100.0)
[2017-10-27 06:14] LABS: ANION GAP 10.6 mmol/L (8-16); CARBON DIOXIDE 30.7 mmol/L (21.0-32.0)
[2017-10-27 06:18] LABS: POTASSIUM - SERUM 3.3 mmol/L (3.5-5.1)
[2017-10-27 09:24] VITALS: BP 138/71
[2017-10-27 12:48] VITALS: BP 136/70
[2017-10-27 16:10] VITALS: BP 117/63
[2017-10-27 22:20] VITALS: BP 122/71
[2017-10-28 01:15] VITALS: BP 123/77
[2017-10-28 05:05] VITALS: BP 123/77
[2017-10-28 07:53] VITALS: BP 130/61
[2017-10-28] MEDS ORDERED: BUPROPION HCL200 M1 PO (08:23)
[2017-10-28] MEDS ORDERED: CELEXA40 MG PO (08:24)
== END 2017-10-28 11:15 | disposition home health service (06) | DRG 71 ==
LOC: D.ER 13:52 → D.PSYCH 20:06 → D.MS 21:38 → OBSVTIME 21:39 → D.MS 10-27 17:29
PROVIDERS: Family Medicine; Internal Medicine Nephrology
DX: G93.40 Encephalopathy, unspecified (principal); F33.9 Major depressive disorder, recurrent, unspecified; N17.9 Acute kidney failure, unspecified; E44.0 Moderate protein-calorie malnutrition; R53.1 Weakness; R29.6 Repeated falls; I10 Essential (primary) hypertension; E03.9 Hypothyroidism, unspecified; E78.5 Hyperlipidemia, unspecified; Z95.1 Presence of aortocoronary bypass graft; M75.122 Complete rotator cuff tear or rupture of left shoulder, not specified as traumatic; Z68.28 Body mass index [BMI] 28.0-28.9, adult

== ENCOUNTER 2017-12-27 10:50 | Day surgery (SDC) | payer MEDICARE, BC ==
[2017-12-25 11:03] LABS: HEMATOCRIT 37.6 % (36.0-48.0); HEMOGLOBIN 12.2 g/dL (12-16); MCH 31.7 pg (26.0-34.0); MCHC 32.4 g/dL (31.0-37.0); MCV 97.7 fL (80.0-100.0); MEAN PLATELET VOLUME 9.6 fL (7.4-10.4); RBC 3.85 10x6/uL (4.00-5.40); RDW 12.1 % (11.5-14.5); WBC 7.5 10x3/uL (4.8-10.8)
[2017-12-25 11:24] LABS: ANION GAP 12.5 mmol/L (8-16); CREATININE - SERUM 1.1 mg/dL (0.6-1.3); POTASSIUM - SERUM 3.5 mmol/L (3.5-5.1)
[~2017-12-27] VITALS: Ht 160 cm; Wt 72.6 kg
--- NOTE | ~2017-12-27 | OP ---
PATIENT NAME: SURAJ GALVIN MEDICAL RECORD: [id number] :50 LOCATION:[facility] ADMISSION DATE: SURGEON: DIANE BOSCH MD DATE OF OPERATION: 12/27/2017 PREOPERATIVE DIAGNOSIS: Nonrepairable rotator cuff tear of the left shoulder. POSTOPERATIVE DIAGNOSIS: Nonrepairable rotator cuff tear of the left shoulder. PROCEDURE: Left superior capsular reconstruction with capsulorrhaphy and rotator cuff repair augment. SURGEON: Diane Bosch MD ANESTHESIA: General. INTRAOPERATIVE COMPLICATIONS: None. SUMMARY OF PATHOLOGIC FINDINGS: In keeping the patient's MRI, the patient had a retracted supraspinatus tendon, very good subscapularis and infraspinatus to attach the dermal patch to. OPERATIVE SUMMARY IN DETAIL: After obtaining the appropriate preoperative orthopedic surgery consent as well as anesthetic consultation, evaluation, and clearance, the patient was brought to the operating room and placed on the operating table in supine position. After general laryngeal mask airway was administered, the patient was placed in the beach chair position. All pressure points were well padded. She was held firmly to the operating table using the vacuum pack suction system. Left upper extremity and shoulder were then prepped and draped in routine sterile fashion. The arm was held in Trimano arm holding device. Anterolateral approach was made from the acromioclavicular joint across the lateral aspect of the acromion and down approximately 2.5 cm from the lateral aspect of the deltoid. Subperiosteal dissection was carried out to create a very good leaf of periosteum for reapproximation. This was retracted and the torn rotator cuff was noted. Formal acromioplasty was followed by excision of 1 cm of the distal clavicle. At this point, the superior aspect of the glenoid was cleaned and prepared for the graft. Having completed this, 3 SutureTak with FiberWire were then placed at approximately the 11, 12 and 1 o'clock positions of the glenoid. Appropriate measurements were taken. The graft was taken to the back field where it was trimmed to the appropriate size. All 6 tails of the SutureTak were passed through the graft using the Scorpion and then it was nicely parachuted down into the superior aspect of the glenoid where it was tied nicely with the FiberWire. Having completed this, the arm was placed in approximately 30 degrees of abduction, 10 degrees of forward flexion. The lateral aspect of the FCR was then anchored down using SpeedBridge from Ar[employer] along with augmentation anteriorly with another SwiveLock. Having completed this, [id number] reapproximation of the subscapularis to the Dermagraft was completed with 0 FiberWire as was the infraspinatus posteriorly. Repair looked nice. Copious irrigation was then followed by reapproximation of the deltoid back to the acromion using an imbricated kvngr-qzjq-[id number] style suture transosseously to reapproximate the deltoid back to the acromion. Further Ethibond was used to close the deep fascial layer followed by #1 Vicryl, 2-0 Vicryl and skin hiram. Sterile dressings were applied. The patient was placed in a large abduction pillow splint, awakened, and taken to recovery room in stable condition. All final needle and sponge counts were correct. OPERATIVE REPORT [id number] SURAJ GALVIN TRANSINT:[id number] Voice Confirmation ID: [id number] DOCUMENT ID: [id number] DANITZA MONTE, DIANE CHAU at 1341 CC: [id number] DICTATION DATE: 01/07/18 2324 SUPERVISOR COMPRESSED YEAST: 01/08/18 0959 [facility] 12/27/17 [id number] [place] [address]
[~2017-12-27 10:50] MED LIST changes: +BUSPAR10 MG PO; +FUROSEMIDE20 MG PO; +HYDROCHLOROTHIA50 MG PO; +KLOR-CON M2020 MEQ PO; +LASIX20 MG PO; -LASIX40 MG PO; +REMERON30 MG PO; +SEROQUEL25 MG PO
[2017-12-27] MEDS ORDERED: BRILINTA90 MG PO (11:31)
[2017-12-27 11:39] VITALS: Ht 160 cm; Wt 72.6 kg
== END 2017-12-27 19:23 | disposition home or self-care (01) ==
LOC: D.OPS 10:50 → D.PAN 13:00 → D.OPS 15:00 → D.PAN 15:00 → D.OPS 19:23
PROVIDERS: Anesthesiology
DX: M75.122 Complete rotator cuff tear or rupture of left shoulder, not specified as traumatic (principal); E03.9 Hypothyroidism, unspecified; K21.9 Gastro-esophageal reflux disease without esophagitis; M19.90 Unspecified osteoarthritis, unspecified site; I10 Essential (primary) hypertension; I25.10 Atherosclerotic heart disease of native coronary artery without angina pectoris; Z95.1 Presence of aortocoronary bypass graft; Z01.812 Encounter for preprocedural laboratory examination

== ENCOUNTER 2017-12-29 06:08 | Emergency (ER) | payer MEDICARE, BC ==
[2017-12-27 11:39] VITALS: BMI 28.4
== END 2017-12-29 08:28 | disposition home or self-care (01) ==
LOC: D.ER 06:08
DX: G89.18 Other acute postprocedural pain (principal); S16.1XXA Strain of muscle, fascia and tendon at neck level, initial encounter; W19.XXXA Unspecified fall, initial encounter; Y93.89 Activity, other specified; Y92.019 Unspecified place in single-family (private) house as the place of occurrence of the external cause; I45.4 Nonspecific intraventricular block

== ENCOUNTER 2017-12-31 15:32 | Outpatient (CLI) | payer MEDICARE, BC ==
[~2017-12-31] VITALS: Ht 160 cm; Wt 77.9 kg
--- NOTE | ~2017-12-31 | HEMODYNAMI ---
PATIENT:SURAJ GALVIN MEDICAL RECORD: [id number] : 50 LOCATION:D. D.2118 ADMISSION DATE: 12/31/17 Generatedon:01/01/20188:14 Patient name: SURAJ GALVIN Patient #: [id number] SSN: D OB: 1950 Date of study: 01/01/2018 Page: Of Hemodynamic Procedure Report Patient Data Patient Demographics Procedure consent was obtained First Name: SURAJ Gender: Female Last Name: GLENIS : 1950 Middle Initial: D Age: 67 year(s) Patient #: [id number] Race: Additional ID: [id number] Contact details Address: [address] [place] [address] State: [place] City: [place] Zip code: [address] Past Medical History Allergies Allergen Reaction Date Comments Reported Other allergy 09/10/2015 TIZANIDINE,AND LATEX Other allergy 09/04/2017 TIZANIDINE, LATEX Admission Admission Data Admission Date: 12/31/2017 Admission Time: 17:28 Admit Source: Other Room #: D.2118 Lab Results Lab Result Date: 12/31/2017 Lab Result Time: 16:40 Biochemistry Name Units Result Min Max BUN mg/dl 22 --(----)-* 7 18 Creatinine mg/dl 1 --(--*-)-- 0.6 1.3 CBC Name Units Result Min Max Hematocrit % 39.6 -*(----)-- 42 54 Hemoglobin g/dl 13.1 -*(----)-- 13.5 17.5 Procedure Procedure Types Cath Procedure Diagnostic Procedure C [facility] w/Coronaries PCI Procedure Coronary Stent Coronary Stent Initial Procedure Description Procedure Date Procedure Date: 01/01/2018 Procedure Start Time: 8:00 Procedure End Time: 8:12 Procedure Staff Name Function Mario Martin MD Performing Physician Steven Whittaker RT Scrub Neo Patel RN Nurse Kayleigh Fournier RT Monitor Procedure Data Cath Procedure Fluoroscopy Diagnostic fluoroscopy Total fluoroscopy Time: 1.9 time: 1.9 min min Diagnostic fluoroscopy Total fluoroscopy dose: 228 dose: 228 mGy mGy Contrast Material Contrast Material Type Amount (ml) Isovue 300 73 Entry Location Entry Primary Successful Side Size Upsize Upsize Entry Closure Succes sful Closure Location (Fr) 1 (Fr) 2 (Fr) Remarks Device Remarks Femoral Right 5 Fr 6 Fr Exoseal artery Short Estimated blood loss: 10 ml Diagnostic catheters Device Type Used For End Catheter Placement MULTIPACK Pigtail 5 Fr LV Angiography catheter MULTIPACK JL 4.0 5Fr Left Coronary catheter Angiography MULTIPACK 3DRC 5Fr Right Coronary catheter Angiography Procedure Complications No complications Procedure Medications Medication Administration Route Dosage 0.9% NaCl I.V. 100 ml/hr Oxygen etCO2 Nasal cannula 2 l/min Heparin Flush Bag added to field 2 bags (1000units/500ml NS) Lidocaine 2% added to field 20 Versed I.V. 2 mg Fentanyl I.V. 100 mcg Fentanyl I.V. 50 mcg Heparin Bolus I.V. 4000 units Fentanyl I.V. 50 mcg Hemodynamics Rest HGB: 13.1 (g/dl) Heart Rate: 63 (bpm) Snapshots Pre Cath Intra NCS Post Cath Vital Signs Time Heart Resp SPO2 NIBP (mmHg) Rhythm Pain Sedation Rate (ipm) (%) Status Level (bpm) 7:36:54 66 13 97 152/85(113) NSR 0 (11) 10(A) , No pain 7:41:39 66 15 99 143/79(112) NSR 0 (11) 10(A) , No pain 7:46:22 62 15 98 110/75(91) NSR 0 (11) 10(A) , No pain 7:50:58 63 13 96 121/77(97) NSR 0 (11) 10(A) , No pain 7:55:37 63 14 97 118/69(90) NSR 0 (11) 10(A) , No pain 8:00:15 66 14 97 125/69(87) NSR 0 (11) 10(A) , No pain 8:04:56 63 14 96 106/59(77) NSR 0 (11) 10(A) , No pain 8:09:33 65 16 95 120/58(83) NSR 0 (11) 10(A) , No pain Medications Time Medication Route Dose Verified Delivered Reason Notes Effectiveness by by 7:40:38 0.9% NaCl I.V. 100 Neo Neo Per physician ml/hr Jorge Patel RN RN 7:41:19 Oxygen etCO2 2 Neo Neo Per physician Nasal l/min Jorge Patel cannula RN RN 7:41:32 Heparin Flush added 2 Neo Neo used for Bag to bags Jorge Patel procedure (1000units/500ml field RN RN NS) 7:41:45 Lidocaine 2% added 20ml Neo Neo for local to vial Jorge Patel anesthetic field RN RN 7:59:19 Versed I.V. 2 mg Neo Neo for sedation Jorge Patel RN RN 7:59:28 Fentanyl I.V. 100 Neo Neo for sedation mcg Jorge Patel RN RN 8:02:17 Fentanyl I.V. 50 Neo Neo for sedation mcg Jorge Patel RN RN 8:06:32 Heparin Bolus I.V. 4000 Neo Neo for units Jorge Patel anticoagulation RN RN 8:10:40 Fentanyl I.V. 50 Neo Neo for sedation mcg Jorge Patel RN ticket sales agent Log Time Note 7:12:24 Informed consent obtained and on chart 7:12:28 Admit Source: Other 7:13:00 Diagnostic Cath status Elective 7:13:01 Time tracking: Regular hours 7:13:05 Plan of Care:Hemodynamics will remain stable., Cardiac rhythm will remain stable., Comfort level will be maintained., Respiratory function will remain adequate., Patient/ family verbilizes understanding of procedure., Procedure tolerated without complication., Recovers from procedure without complications.. 7:13:18 H&P Date Dictated: 12/31/2017 Within 30 days and on chart.. 7:13:59 Lab Result : Hemoglobin 13.1 g/dl 7::59 Lab Result : Creatinine 1 mg/dl 7:13:59 Lab Result : BUN 22 mg/dl 7:13:59 Lab Result : Hematocrit 39.6 % 7:15:03 Kayleigh Fournier RT(R) sent for patient. Start room use. 7:25:38 Patient received from Med II to CCL 1 Alert and oriented. Tansferred to table in Supine position. 7:25:39 Warm blankets applied, and christina hugger turned on for patient comfort. 7:25:39 Correct patient and procedure confirmed by team. 7:25:40 ECG and BP/O2 sat monitors applied to patient. 7:27:34 Full Disclosure recording started 7:35:58 Vital chart was started 7:36:01 Rhythm: sinus rhythm 7:36:05 Pre-procedure instructions explained to patient. 7:36:06 Pre-op teaching completed and patient verbalized understanding. 7:36:09 Family unavailable. 7:36:10 Patient NPO since Midnight. 7:40:38 0.9% NaCl 100 ml/hr I.V. was administered by Neo Patel RN; Per physician; 7:41:15 Is the patient allergic to Iodine/contrast media? No. 7:41:16 Is patient on blood thinner?Yes 7:41:19 Oxygen 2 l/min etCO2 Nasal cannula was administered by Neo Patel RN; Per physician; 7:41:19 ACC The patient was administered the following blood thiners within the last 24 hours: ACCPlavix 7:41:22 Patient diabetic? No. 7:41:25 Previous problem with sedation/anesthesia? No ? 7:41:26 Snore? Yes 7:41:27 Sleep apnea? No 7:41:28 Deviated septum? No 7:41:28 Opens mouth fully? Yes 7:41:29 Sticks out tongue? Yes 7:41:30 Airway obstruction? No ? 7:41:32 Heparin Flush Bag (1000units/500ml NS) 2 bags added to field was administered by Neo Patel RN; used for procedure; 7:41:33 Dentures? Yes OUT 7:41:36 Pre procedure: right dorsailis pedis pulse 2+ Normal; easily identifiable; not easily obliterated 7:41:38 Patient pain scale 0/10 ?. 7:41:45 Lidocaine 2% 20ml vial added to field was administered by Neo Patel RN; for local anesthetic; 7:42:52 PATIENT HAD LEFT SHOUDER SURGERY ON 12/27/[address] BOSCH. IMMOBILIZER REMOVED FOR PROCEDURE. 7:43:05 IV patent on arrival in right wrist with 0.9% NaCl at [facility]. 7:43:08 Lab results completed and on chart. 7:43:13 Right groin area was prepped with chlora-prep and draped in sterile fashion 7:43:14 Alarms reviewed by R. N. 7:43:14 Sharps counted by scrub and verified by R.N. 7:46:51 Physician paged 7:46:54 Zero performed for pressure channel P1 7:47:06 Baseline sample Acquired. 7:57:10 Final Timeout: patient, procedure, and site verified with staff and physician. All members of the team are in agreement. 7:57:13 Right groin site verified by team. 7:57:15 Physical assessment completed. ASA score P 2 - A patient with mild systemic disease as per Mario Martin MD. 7:57:18 Sedation plan: IV Moderate Sedation Medication:Versed, Fentanyl 7:57:23 Use device set Femoral Dx 7:57:25 ACIST Syringe (28164) opened to sterile field. 7:57:25 Bag Decanter (2002S) opened to sterile field. 7:57:26 Medline Cath Pack ([id number]) opened to sterile field. 7:57:27 DIAGNOSTIC WIRE .035 260cm J wire (926683) opened to sterile field. 7:57:28 ACIST Hand Control (52617) opened to sterile field. 7:57:28 ACIST Manifold (37811) opened to sterile field. 7:57:29 DIAGNOSTIC Multipack 5Fr catheter set (VN6109) opened to sterile field. 7:57:29 Tegaderm 4 x 4 (1626W) opened to sterile field. 7:57:30 PERCUTANEOUS ENTRY 19GA needle opened to sterile field. 7:57:51 SHEATH 5Fr Prelude ([id number]) opened to sterile field. 7:59:19 Versed 2 mg I.V. was administered by Neo Patel RN; for sedation; 7:59:28 Fentanyl 100 mcg I.V. was administered by Neo Patel RN; for sedation; 7:59:57 Procedure started. 8:00:01 Local anesthetic to right femoral artery with Lidocaine 2% by Mario Martin MD.INITIAL ACCESS ONLY 8:00:53 A 5 Fr sheath was inserted into the Right Femoral artery 8:02:04 A MULTIPACK Pigtail 5 Fr catheter was advanced over the wire and used for LV Angiography. 8:02:17 Fentanyl 50 mcg I.V. was administered by Neo Patel RN; for sedation; 8:02:33 LV gram done using ORDAZ 8:02:36 Injector settings: Ml/sec: 10, Volume: 20, 8:02:45 EF : 60 % 8:02:46 Catheter removed. 8:03:11 A MULTIPACK JL 4.0 5Fr catheter was advanced over the wire and used for Left Coronary Angiography. 8:03:42 Use device set [facility] PCI 8:03:47 INFLATOR Merit BasixCompak (AD2493) opened to sterile field. 8:03:54 SHEATH 6Fr Prelude ([id number]) opened to sterile field. 8:04:05 GUIDE 6FR XBLAD 4.0 catheter ([id number]) opened to sterile field. 8:04:09 CHOICE PT Extra Support 182cm wire ([id number]) opened to sterile field. 8:04:13 Catheter removed. 8:04:25 A MULTIPACK 3DRC 5Fr catheter was advanced over the wire and used for Right Coronary Angiography. 8:04:45 Catheter removed. 8:04:55 Sheath upsized to a 6 Fr Short. 8:06:24 6 Fr XBLAD 4.0 guide catheter was inserted over the wire 8:06:32 Heparin Bolus 4000 units I.V. was administered by Neo Patel RN; for anticoagulation; 8:07:27 CHOICE PT ES wire advanced. 8:08:25 Place stent Inflation Number: 1 A INTEGRITY RX 2.5 x 08 stent ([id number]) was prepped and advanced across the Mid LAD. The stent was deployed at 13 SHRUTHI for 0:10 (min:sec). 8:08:39 Stent catheter was removed intact over wire. 8:08:39 Wire removed. 8:08:40 Guide catheter removed. 8:08:49 Sheath removed intact; hemostasis achieved with Exoseal to the Right Femoral artery. 8:08:53 Procedure ended.(Physican Out) 8:09:39 EXOSEAL 6Fr (EX600) opened to sterile field. 8:09:48 Fluoroscopy time 01.90 minutes. 8::54 Flurop Dose total: 228 8::54 Fluoroscopy dose: 228 mGy 8:09:59 Contrast amount:Isovue 300 73ml. 8:10:01 Sharps counted by scrub and verified by R.N. 8:10:02 Insertion/operative site no bleeding no hematoma. 8:10:05 Post-op/insertion site Right Femoral artery dressed using a 4 x 4 and Tegaderm. 8:10:08 Post right femoral artery:stable, clean and dry 8:10:10 Post Procedure Pulses reassessed and unchanged 8:10:14 Post-procedure physical assessment completed. ASA score P 2 - A patient with mild systemic disease as per Mario Martin MD. 8:10:18 Post procedure rhythm: unchanged. 8:10:21 Estimated blood loss: 10 ml 8:10:23 Post procedure instruction explained to patient.Patient verbalizes understanding. 8:10:23 Patient needs reinforcement of post procedure teaching. 8:10:31 Procedure type changed to Cath procedure, Diagnostic procedure, LHC, LHC w/Coronaries, PCI procedure, Coronary Stent, Coronary Stent Initial 8:10:40 Fentanyl 50 mcg I.V. was administered by Neo Patel RN; for sedation; 8:10:51 Procedure Complication : No complications 8:10:54 See physician's report for complete and final results. 8:11:57 Procedure and supply charges have been captured, reviewed, submitted and are correct. 8:12:13 Vital chart was stopped 8:12:21 Report given to PCU. 8:12:28 Patient transfered to PCU with Bed. 8:12:36 Procedure ended. 8:12:36 Full Disclosure recording stopped 8:12:38 End room use (Document Last) Intervention Summary Intervention Notes Time ActionType Lesion and Equipment Action# Pressure Duration Attributes Used 8:08:25 Place stent Mid LAD INTEGRITY RX 1 13 00:10 2.5 x 08 stent ([id number]) Device Usage Item Name Manufacture Quantity Catalog Number Hospital Part Current Mini [facility] Lot# / Charge Number Stock Stock Serial# Code ACIST Acist 1 47169 073680 442874 915791 20 Syringe Medical (33872) Systems Inc Bag Decanter Microtek 1 2001S 324623 35654 381742 5 () Medical Inc. Medline Cath Cardinal 1 [id number] 446108 96188 933792 5 Pack [facility] ([id number]) DIAGNOSTIC St Manuel 1 220751 910829 870567 974837 30 WIRE .035 260cm J wire (221747) ACIST Hand Acist 1 05570 780447 520622 647003 5 Control Medical (13300) Systems Inc ACIST Acist 1 91109 838030 757286 175880 5 Manifold Medical (51534) Systems Inc DIAGNOSTIC Cardinal 1 WX4716 804395 99309 506842 30 Multipack Heliospectra 5Fr catheter set (UI7105) Tegaderm 4 x 3M 1 1626W 362540 843295 933616 5 4 (1626W) PERCUTANEOUS Cook Medical 1 N56939 963708 961448 5 ENTRY 19GA needle SHEATH 5Fr Merit 1 [id number] 843520 464213 236050 5 Prelude Medical ([id number]) MULTIPACK Cardinal 1 545899 5 Pigtail 5 Fr Health catheter MULTIPACK JL Cardinal 1 900119 5 4.0 5Fr Health catheter INFLATOR Merit 1 NG8313 244761 451317 239641 15 [facility] Medical BasixCompak (AW3984) SHEATH 6Fr Merit 1 [id number] 345130 587691 351302 5 Prelude Medical ([id number]) GUIDE 6FR Cardinal 1 [id number] 581185 091715 921131 3 XBLAD 4.0 Health catheter ([id number]) CHOICE PT [place] 1 [id number] 918914 568444 771930 5 Extra Scientific Support 182cm wire ([id number]) MULTIPACK Cardinal 1 343026 5 3DRC 5Fr Health catheter INTEGRITY RX Medtronic 1 [id number] 608926 162458 642164 5 [id number] 2.5 x 08 stent ([id number]) EXOSEAL 6Fr Cardinal 1 EX600 773684 783532 898188 10 (EX600) Health Signature Audit [place] Stage Time Signature Unsigned Intra-Procedure 01/01/2018 Kayleigh 8:14:00 AM Counts RT(R) Signatures Monitor : Kayleigh Signature : Counts RT Date : Time : [place] [id number] [place] [id number]
--- NOTE | ~2017-12-31 | OP ---
PATIENT NAME: SURAJ GALVIN MEDICAL RECORD: [id number] :50 LOCATION:D.ER ADMISSION DATE: SURGEON: YULISSA GOODRICH MD DATE OF OPERATION: 01/01/2018 PROCEDURES: 1. PTCA and stent of LAD. 2. Left heart catheterization. 3. Selective coronary angiography. 4. Left ventriculogram. INDICATION: Angina and coronary artery disease. PROCEDURE IN DETAIL: After informed consent was obtained and after detailed explanation of risks, benefits as well as alternative therapies, the patient elected to proceed with angiogram and angioplasty. The right femoral area was prepped and draped in normal sterile fashion. Right femoral artery was cannulated via modified Seldinger technique with placement of 6-Tongan sheath. All catheter exchanged through this sheath. FINDINGS: The left ventriculogram was performed in standard 30-degree ORDAZ view, reveals good cardiac wall motion throughout all segments. Overall ejection fraction estimated at 60%. SELECTIVE CORONARY ANGIOGRAPHY: 1. Left main is with no significant angiographic disease. 2. Left anterior descending has a previously placed stent that is widely patent; however, there is 75% stenosis proximal to that. 3. The left circumflex has mild irregularities, but no flow-limiting stenosis. 4. The right coronary has mild irregularities, but no flow-limiting stenosis. PTCA AND STENT OF THE LAD: The stent used 2.5 x 8-mm Integrity. Result was 0% residual stenosis. OVERALL IMPRESSION: Successful PTCA and stent of the LAD going from 75% initial stenosis to 0% residual. TRANSINT:[id number] Voice Confirmation ID: [id number] DOCUMENT ID: [id number] YULISSA GOODRICH MD at 1056 CC: [id number] DICTATION DATE: 01/01/18 0816 DIGITAL OPERATIONS ANALYST: 01/01/18 1239 [facility] 01/01/18 [place] [address]
--- NOTE | ~2017-12-31 | DS ---
PATIENT:SURAJ TY :50 MEDICAL RECORD: [id number] DISCHARGE SUMMARY ADMISSION DATE: 12/31/17 DISCHARGE DATE: 01/01/18 DISCHARGE DIAGNOSES: 1. Unstable angina. 2. Coronary artery disease. 3. Shortness of breath, dyspnea on exertion. 4. Hyperlipidemia. HOSPITAL COURSE: Mrs. Ty presents with anginal symptomatology, found to have significant disease of the LAD, underwent successful PTCA stent of the LAD, was discharged home with the addition of aspirin and Plavix to her medical regimen. Follow up with [facility] in 1 month. TRANSINT:[id number] Voice Confirmation ID: [id number] DOCUMENT ID: [id number] YULISSA GOODRICH MD at 1056 CC: [id number] DICTATION DATE: 01/01/18813 PATIENT OMBUDSPERSON: 01/01/18 1315 [facility] CLI 01/01/[address] [address]
--- NOTE | ~2017-12-31 | HP ---
PATIENT: SURAJ TY MEDICAL RECORD: [id number] ACCOUNT: [id number] LOCATION:[place] : 50 ADMISSION DATE: 12/31/17 HISTORY AND PHYSICAL EXAMINATION ADMITTING DIAGNOSES: 1. Angina. 2. Shortness of breath - dyspnea on exertion. 3. Recent shoulder surgery. 4. Coronary artery disease, previous multivessel PTCA stent, last being August of 2017. 5. Hypertension. HISTORY OF PRESENT ILLNESS: Ms. yT presents with anginal symptomatology. Last cardiac stent was in August. PHYSICAL EXAMINATION: GENERAL APPEARANCE: Well-nourished, well-developed, appears stated age. Level of distress, comfortable. PSYCHIATRIC: Mental status, alert, normal affect. Orientation, oriented to time, place and person. EYES: Lids and conjunctiva, noninjected. No discharge, no pallor. ENT: Lips, teeth, gums, normal dentition. Oropharynx, no cyanosis, no pallor. NECK: Carotid arteries, bilateral normal upstroke, no bruits, no thrills. JUGULAR VEINS: No jugular venous pressure or distention. CERVICAL LYMPH NODES: Nontender, nonenlarged. THYROID: Not enlarged. Nontender. No nodules. LUNGS: Respiratory effort, unlabored. CHEST: Normal curvature. No thoracic deformity. No chest wall tenderness. Percussion, resonant. Auscultation, clear. No wheezes, no rales, no rhonchi. CARDIOVASCULAR: Precordial exam, nondisplaced. No heaves or pericardial thrills. Rate and rhythm, regular. Heart sounds, normal S1, normal S2. No S3, no gallop, no rub. Systolic murmur, not heard. Diastolic murmur, not heard. EXTREMITIES: No cyanosis, no edema. Peripheral pulses, full and equal in all extremities, except as noted. No bruits appreciated. ABDOMEN: Soft, nondistended. Normal aorta. No bruit. Nontender. No masses. Liver, nontender, no hepatomegaly. Spleen, nontender, no splenomegaly. MUSCULOSKELETAL: No joint tenderness. No joint swelling. No erythema. NEUROLOGICAL: Normal gait, normal strength, normal tone. SKIN: Warm and dry. REVIEW OF SYSTEMS: The patient reports easy bruising but reports no swollen glands. The patient reports no fever, no night sweats, no significant weight gain, no significant weight loss. No significant exercise tolerance. The patient reports no dry eyes, no irritation, no vision change. Patient reports no difficulty hearing and no ear pain. Patient reports no frequent nose bleeds or nose and sinus problems. Patient reports on arm pain on exertion. No shortness of breath while lying down. No history of heart murmur. Patient reports no cough, no wheezing or coughing up blood. Patient reports no abdominal pain, no vomiting. Normal appetite. No diarrhea and not vomiting blood. No nausea and no constipation. Patient reports no incontinence. No difficulty urinating. No hematuria. No increased frequency. Patient reports no muscle aches. No weakness, no arthralgias, no back pain. No swelling of the extremities. Patient reports no abnormal mole, no jaundice, no rashes. Reports no loss of consciousness. No weakness and no numbness. No seizures, dizziness, HISTORY AND PHYSICAL [id number] COGBURN,SURAJ D or headaches. The patient reports no depression, no sleep disturbance, feeling safe in a relationship and no alcohol abuse. Patient reports on fatigue. Reports no runny nose or sinus pressure. No itching, no hives, and no frequent sneezing. OVERALL IMPRESSION: Escalating angina, unstable fashion. Most likely, she has recurrent hemodynamically significant coronary artery disease. We will proceed with coronary angiography. Further care depends upon findings of the angiography. TRANSINT:[id number] Voice Confirmation ID: [id number] DOCUMENT ID: [id number] YULISSA GOODRICH MD at 1056 CC: [id number] DICTATION DATE: 12/31/17 1650 SOIL SCIENCE TEACHER: 12/31/17 1724 [facility] CLI 01/01/18 [place] [id number] [place] [id number]
[2017-12-31 16:53] LABS: BASOPHILS 0.6 % (0-2); EOSINOPHILS 11.1 % (0-7); HEMATOCRIT 39.6 % (36.0-48.0); HEMOGLOBIN 13.1 g/dL (12-16); IMMATURE GRANULOCYTES 0.1 % (0-5); LYMPHOCYTES 34.1 % (15-50); MCH 32.3 pg (26.0-34.0); MCHC 33.1 g/dL (31.0-37.0); MCV 97.8 fL (80.0-100.0); MEAN PLATELET VOLUME 9.5 fL (7.4-10.4); MONOCYTES 11.5 % (2-11); NEUTROPHILS 42.6 % (40-80); RBC 4.05 10x6/uL (4.00-5.40); WBC 10.7 10x3/uL (4.8-10.8)
[2017-12-31 17:02] LABS: PLATELET COUNT 437 10x3/uL (130-400)
[2017-12-31 17:40] LABS: ALBUMIN 3.1 g/dL (3.4-5.0); ALKALINE PHOSPHATASE 113 U/L (46-116); ALT (SGPT) 27 U/L (10-68); BILIRUBIN - TOTAL 0.35 mg/dL (0.2-1.3); CALC OSMOLALITY 272 mosm/kg (275-300); CALCIUM 9.3 mg/dL (8.5-10.1); CARBON DIOXIDE 31.9 mmol/L (21.0-32.0); CHLORIDE - SERUM 93 mmol/L (98-107); GLUCOSE 97 mg/dL (74-106); POTASSIUM - SERUM 3.3 mmol/L (3.5-5.1); SODIUM 135 mmol/L (136-145); UREA NITROGEN 22 mg/dL (7-18); eGFR NON AFRICAN AMERICAN 58 mL/min (90-120)
[2017-12-31 17:47] LABS: TROPONIN-I < 0.017 ng/mL (0.000-0.060)
[2017-12-31 20:00] VITALS: BP 131/77
[2017-12-31 20:26] VITALS: Ht 160 cm; Wt 77.9 kg
[2018-01-01 00:49] VITALS: BP 72/42
[2018-01-01 06:46] VITALS: BP 117/74
[2018-01-01 07:44] VITALS: BP 134/63
[2018-01-01] MEDS ORDERED: PLAVIX75 MG PO (08:23)
[2018-01-01] MEDS ORDERED: BRILINTA90 MG PO (12:22)
== END 2018-01-01 12:30 | disposition home or self-care (01) ==
LOC: OBSVTIME → D.ER 15:32 → OBSVTIME 17:28 → D.ER 17:28 → D.M2 17:28 → D.EDHOLD 17:28 → D.M2 17:40 → D.EDHOLD 17:40 → D.M2 17:40 → D.CLR 01-01 08:40 → EDSTATUS 01-01 11:00 → D.CLR 01-01 12:30 → D.ER 01-01 12:30
PROVIDERS: Emergency Medicine
DX: I25.110 Atherosclerotic heart disease of native coronary artery with unstable angina pectoris (principal); Z95.5 Presence of coronary angioplasty implant and graft; E78.5 Hyperlipidemia, unspecified; I10 Essential (primary) hypertension

== ENCOUNTER → 2018-04-09 08:09 | Outpatient (CLI) | payer MEDICARE, BC ==
[2017-12-31 20:26] VITALS: BMI 28.4
--- NOTE | ~2018-04-09 | EC ---
PATIENT:SURAJ GALVIN DATE OF SERVICE: 04/09/18 SEX: F MEDICAL RECORD: [id number] DATE OF : 50 LOCATION:D.RT AGE OF PATIENT: 67 ADMISSION DATE: 04/09/18 REFERRING PHYSICIAN: INTERPRETING PHYSICIAN: YULISSA MARTIN MD ECHOCARDIOGRAM REPORT ECHO CHARGES 4 ECHO COMPLETE Date: 04/09 CLINICAL DIAGNOSIS: DYSPENA ECHOCARDIOGRAPHIC MEASUREMENTS (adult normal given) AC root (d.<3.7cm) 2.9 cm LV Septum d (<1.2 cm> 1.2 cm Valve Excursion 1.3 cm LV Septum (systole) 1.7 cm Left Atria (s.<4.0cm> 2.7 cm LVPW d(<1.2cm) 0.9 cm RV (d.<2.3cm) 3.2 cm LVPW (sytole) 1.1 cm LV diastole(<5.6CM) 4.2 cm MV E-F(>70mm/sec) cm LV systole 3.4 cm LVOT Diameter 1.4 cm MV exc.(>10mm) cm Est.ejection fraction (50-75%) % DOPPLER: LVIT cm/sec A 55 cm/sec E 54 cm/sec LA cm/sec RVSP 43 mmHg LVOT 69 cm/sec AOP1/2T m/s Asc. Ao 214 cm/sec RVOT 41 cm/sec RA cm/sec PA 64 cm/sec AV Gradient Peak 2.1 mmHg AV Mean 1.8 mmHg AV Area 0.4 cm MV Gradient Peak 2.0 mmHg MV Mean 0.9 mmHg MV Area cm COMMENTS: Felled Seam Operator: Crystal Mounter: 1 Dr. Martin TAPE# PACS Pericardial Effusion N DATE OF SERVICE: 04/09/2018 PROCEDURE: Echocardiogram. FINDINGS: 1. Left ventricular chamber size is within normal limits. Left ventricular systolic function is normal. Overall ejection fraction estimated at 60%. 2. Left atrium is within normal limits. Right atrium and right ventricle chamber sizes are mildly dilated. 3. Valvular structures have normal structure and motion. ECHOCARDIOGRAM REPORT [id number] SURAJ GALVIN 4. Doppler interrogation reveals trace to mild aortic insufficiency, mild mitral regurgitation, moderate tricuspid regurgitation, no other valvular insufficiency or stenosis. Pulmonary systolic pressure is estimated 43 mmHg. 5. No evidence of pericardial effusion or left ventricular thrombus. TRANSINT:[id number] Voice Confirmation ID: [id number] DOCUMENT ID: [id number] YULISSA MARTIN MD at 1230 CC: [id number] DICTATION DATE: 04/09/18 1219 PARKING GARAGE MANAGER: 04/09/18 1224 DEP CLI 04/09/18 [place] [id number] [place] [id number]
[~2018-04-09 08:09] MED LIST changes: +BREO ELLIPTA 11 EACH INH; +DILAUDID4 MG PO; +KRISTALOSE20 G/PKT PO; +NORCO 7.5/325 T1 TA1 PO; +PLAVIX75 MG PO; +PROAIR HFA8.5 GM INH
[2018-04-09 11:37] LABS: BASOPHILS 1.1 % (0-2); EOSINOPHILS 4.2 % (0-7); HEMATOCRIT 42.5 % (36.0-48.0); HEMOGLOBIN 13.7 g/dL (12-16); IMMATURE GRANULOCYTES 0.3 % (0-5); LYMPHOCYTES 42.8 % (15-50); MCH 29.8 pg (26.0-34.0); MCHC 32.2 g/dL (31.0-37.0); MCV 92.4 fL (80.0-100.0); MEAN PLATELET VOLUME 9.5 fL (7.4-10.4); MONOCYTES 12.9 % (2-11); NEUTROPHILS 38.7 % (40-80); PLATELET COUNT 358 10x3/uL (130-400); RDW 14.4 % (11.5-14.5)
[2018-04-09 12:18] LABS: ANION GAP 13.9 mmol/L (8-16); CALCIUM 9.4 mg/dL (8.5-10.1); CARBON DIOXIDE 30.4 mmol/L (21.0-32.0); CREATININE - SERUM 1.2 mg/dL (0.6-1.3); POTASSIUM - SERUM 4.3 mmol/L (3.5-5.1)
== END | disposition home or self-care (01) ==
LOC: D.RT 03-18 09:00
PROVIDERS: Internal Medicine Pulmonary Disease
DX: R06.09 Other forms of dyspnea (principal); N18.9 Chronic kidney disease, unspecified

== ENCOUNTER 2018-05-06 11:28 | Emergency (ER) | payer MEDICARE, BC ==
[~2018-05-06] VITALS: Ht 160 cm; Wt 76.4 kg
[~2018-05-06 11:28] MED LIST changes: -BREO ELLIPTA 11 EACH INH; -DILAUDID4 MG PO; -KRISTALOSE20 G/PKT PO; -NORCO 7.5/325 T1 TA1 PO; -PROAIR HFA8.5 GM INH
[2018-05-06 11:44] VITALS: Ht 160 cm; Wt 76.4 kg
[2018-05-06] MEDS ORDERED: NORCO 7.5/325 T1 TA1 PO (15:10)
[2018-05-06 15:29] VITALS: BP 130/86
== END 2018-05-06 15:32 | disposition home or self-care (01) ==
LOC: D.ER 11:28
DX: S43.102A Unspecified dislocation of left acromioclavicular joint, initial encounter (principal); W18.30XA Fall on same level, unspecified, initial encounter; Y93.89 Activity, other specified; Y92.019 Unspecified place in single-family (private) house as the place of occurrence of the external cause; E07.9 Disorder of thyroid, unspecified; I10 Essential (primary) hypertension; I25.10 Atherosclerotic heart disease of native coronary artery without angina pectoris

== ENCOUNTER → 2018-05-09 11:47 | Outpatient (CLI) | payer MEDICARE, BC ==
[2018-05-06 11:44] VITALS: BMI 29.8
[~2018-05-09 11:47] MED LIST changes: +BREO ELLIPTA 11 EACH INH; +DILAUDID4 MG PO; +KRISTALOSE20 G/PKT PO; +NORCO 7.5/325 T1 TA1 PO; +PROAIR HFA8.5 GM INH
== END | disposition home or self-care (01) ==
LOC: D.MRI 11:47
DX: M25.512 Pain in left shoulder (principal)

== ENCOUNTER 2018-05-16 17:58 | Emergency (ER) | payer MEDICARE, BC ==
[~2018-05-16] VITALS: Ht 160 cm; Wt 77.1 kg
[~2018-05-16 17:58] MED LIST changes: -BREO ELLIPTA 11 EACH INH; -DILAUDID4 MG PO; -KRISTALOSE20 G/PKT PO; -PROAIR HFA8.5 GM INH
[2018-05-16 18:17] VITALS: Ht 160 cm; Wt 77.1 kg
[2018-05-16] MEDS ORDERED: PLAVIX75 MG PO (18:22)
[2018-05-16 18:51] LABS: BASOPHILS 0.9 % (0-2); EOSINOPHILS 1.4 % (0-7); HEMATOCRIT 38.8 % (36.0-48.0); HEMOGLOBIN 12.7 g/dL (12-16); IMMATURE GRANULOCYTES 0.1 % (0-5); MCH 30.2 pg (26.0-34.0); MCHC 32.7 g/dL (31.0-37.0); MCV 92.4 fL (80.0-100.0); MEAN PLATELET VOLUME 8.9 fL (7.4-10.4); MONOCYTES 12.4 % (2-11); NEUTROPHILS 51.2 % (40-80); PLATELET COUNT 403 10x3/uL (130-400); RDW 14.2 % (11.5-14.5); WBC 8.1 10x3/uL (4.8-10.8)
[2018-05-16 19:01] LABS: APPEARANCE CLEAR (CLEAR); BILIRUBIN NEGATIVE (NEGATIVE); COLOR YELLOW (YELLOW); GLUCOSE NEGATIVE (NEGATIVE); KETONE NEGATIVE (NEGATIVE); NITRITE NEGATIVE (NEGATIVE); PROTEIN NEGATIVE (NEGATIVE); UROBILINOGEN NORMAL (NORMAL)
[2018-05-16 19:04] LABS: ALBUMIN 3.3 g/dL (3.4-5.0); ALKALINE PHOSPHATASE 126 U/L (46-116); ALT (SGPT) 23 U/L (10-68); BILIRUBIN - TOTAL 0.35 mg/dL (0.2-1.3); CALC OSMOLALITY 278 mosm/kg (275-300); CALCIUM 8.9 mg/dL (8.5-10.1); CARBON DIOXIDE 32.9 mmol/L (21.0-32.0); CHLORIDE - SERUM 101 mmol/L (98-107); CREATININE - SERUM 1.1 mg/dL (0.6-1.3); GLUCOSE 97 mg/dL (74-106); POTASSIUM - SERUM 3.6 mmol/L (3.5-5.1); PROTEIN - SERUM 7.6 g/dL (6.4-8.2); SODIUM 139 mmol/L (136-145); UREA NITROGEN 16 mg/dL (7-18); eGFR NON AFRICAN AMERICAN 52 mL/min (90-120)
[2018-05-16 19:08] LABS: AMYLASE - SERUM 56 U/L (25-115); LIPASE 177 U/L (73-393)
[2018-05-16 19:10] LABS: TROPONIN-I < 0.017 ng/mL (0.000-0.060)
[2018-05-16] MEDS ORDERED: KRISTALOSE20 G/PKT PO (21:28)
[2018-05-16 21:52] VITALS: BP 142/71
== END 2018-05-16 21:52 | disposition home or self-care (01) ==
LOC: D.ER 17:58
PROVIDERS: Family Medicine
DX: R10.32 Left lower quadrant pain (principal); R11.0 Nausea; I10 Essential (primary) hypertension; I25.810 Atherosclerosis of coronary artery bypass graft(s) without angina pectoris; K21.9 Gastro-esophageal reflux disease without esophagitis

== ENCOUNTER 2018-05-23 09:35 | Day surgery (SDC) | payer MEDICARE, BC ==
[2018-05-21 13:24] LABS: BASOPHILS 0.7 % (0-2); EOSINOPHILS 1.4 % (0-7); HEMATOCRIT 36.9 % (36.0-48.0); HEMOGLOBIN 12.1 g/dL (12-16); IMMATURE GRANULOCYTES 0.2 % (0-5); LYMPHOCYTES 47.3 % (15-50); MCH 29.7 pg (26.0-34.0); MCHC 32.8 g/dL (31.0-37.0); MCV 90.4 fL (80.0-100.0); MEAN PLATELET VOLUME 9.1 fL (7.4-10.4); MONOCYTES 12.8 % (2-11); NEUTROPHILS 37.6 % (40-80); PLATELET COUNT 394 10x3/uL (130-400); RBC 4.08 10x6/uL (4.00-5.40); RDW 14.3 % (11.5-14.5); WBC 5.6 10x3/uL (4.8-10.8)
[2018-05-21 13:40] LABS: ANION GAP 8.9 mmol/L (8-16); CALCIUM 8.6 mg/dL (8.5-10.1); CARBON DIOXIDE 30.7 mmol/L (21.0-32.0); POTASSIUM - SERUM 4.6 mmol/L (3.5-5.1)
[~2018-05-23] VITALS: Ht 160 cm; Wt 90.7 kg
--- NOTE | ~2018-05-23 | OP ---
PATIENT NAME: SURAJ GALVIN MEDICAL RECORD: [id number] :50 LOCATION:[facility] ADMISSION DATE: SURGEON: DIANE BOSCH MD DATE OF OPERATION: 05/23/2018 PREOPERATIVE DIAGNOSES: 1. Recurrent tear of the rotator cuff, status post superior capsular reconstruction. 2. Shoulder separation, all of the left shoulder. POSTOPERATIVE DIAGNOSIS: Recurrent rotator cuff tear after SCR separation. PROCEDURES: 1. Open revision rotator cuff repair. 2. Open distal clavicle excision. SURGEON: Diane Bosch MD ANESTHESIA: General. INTRAOPERATIVE COMPLICATIONS: None. SUMMARY OF PATHOLOGIC FINDINGS: Upon entering the patient's joint, while it was expected that she had an unstable distal clavicle, manual palpation of the conoid and trapezoid ligaments show that they were completely intact. She did have a small distal clavicle fracture, which required excisional debridement. Mostly, she had disruption of the medial aspect of the superior capsular reconstruction dermal graft. The required procedure was removal of the bony fragment, repeat excision of the distal clavicle which had fractured in, and revision of the SCR -- open rotator cuff repair revision. OPERATIVE SUMMARY IN DETAIL: After obtaining the appropriate preoperative orthopedic surgery consents as well as anesthetic consultation, evaluation and clearance, the patient was brought to the operating room and placed on the operating table in supine position. After general laryngeal mask airway administered, the patient was placed in a beach chair position. All pressure points were well padded. She was held firmly to the operating table using the vacuum pack suction system. Left upper shoulder then prepped and draped in routine sterile fashion. The arm was held in Trimano arm holding device. Incision was made over the previously placed incision that was elongated medially to include the acromioclavicular joint. Dissection was carried down. Substantial amount of scar tissue was noted along with a bony fragment that was excised. Upon inspection of the SCR, the medial component of the SCR had pulled off secondary to the patient's fall. Two suture tacks were placed in the superior aspect of the glenoid to reapproximate the medial aspect of the SCR allograft. In addition to this, both posterior and lateral reapproximation to the subscapularis anteriorly and the infraspinatus posteriorly were done with an additional #2 FiberWires. This did render the SCR back to its normal pre-fall condition. At this point, careful palpation was done of the conoid and trapezoid ligaments, which were found to be intact without evidence of disruption. In fact, manual manipulation of the distal clavicle would not allow to go higher than a minimum of grade III separation. For this reason, the AC joint reconstruction was abandoned. At this point, the wound was copiously irrigated. Closure was achieved with #2 Ethibond in an imbricated suture, [id number]-[id number] style, to reapproximate the deltoid over the superior aspect of OPERATIVE REPORT [id number] SURAJ GALVIN the acromion. Good reapproximation of the deltoid was achieved here and at the AC joint. Having completed this, the skin was closed with #1 Vicryl, 2-0 Vicryl and skin hiram. Sterile dressings were applied. The patient was awakened, taken to recovery in stable condition. All final needle and sponge counts were correct. TRANSINT:[id number] Voice Confirmation ID: [id number] DOCUMENT ID: [id number] 05/30/2018 Edited for undergraduate advisor error, [email or web address]. DANITZA MONTE, DIANE CHAU at 0912 CC: [id number] DICTATION DATE: 05/24/18 1105 DATA ENTRY PROCESSOR: 05/24/18 1121 [facility] 05/23/18 [facility] [address] [place] [address]
[~2018-05-23 09:35] MED LIST changes: +KRISTALOSE20 G/PKT PO
[2018-05-23 10:54] VITALS: BP 145/77; Ht 160 cm; Wt 90.7 kg
[2018-05-23] MEDS ORDERED: PLAVIX75 MG PO (11:17)
[2018-05-23] MEDS ORDERED: PROAIR HFA8.5 GM INH (11:18)
[2018-05-23] MEDS ORDERED: BREO ELLIPTA 11 EACH INH (11:18)
[2018-05-23] MEDS ORDERED: DILAUDID4 MG PO (14:09)
== END 2018-05-23 16:30 | disposition home or self-care (01) ==
LOC: D.SDCHOLD 09:35 → D.OPS 09:35 → D.SDCHOLD 12:30 → D.OPS 16:30 → D.PAN 19:00 → EDSTATUS 19:00 → D.SDCHOLD 19:00 → D.OPS 19:00
PROVIDERS: Anesthesiology; Orthopaedic Surgery
PROC: 0LQ20ZZ Repair Left Shoulder Tendon, Open Approach (ICD-10-PCS; principal; 2018-05-23 12:30)
PROC: 0PBB0ZZ Excision of Left Clavicle, Open Approach (ICD-10-PCS; 2018-05-23 12:30)
DX: M75.102 Unspecified rotator cuff tear or rupture of left shoulder, not specified as traumatic (principal); S43.005A Unspecified dislocation of left shoulder joint, initial encounter; X58.XXXA Exposure to other specified factors, initial encounter

== ENCOUNTER → 2018-09-10 07:25 | Outpatient (CLI) | payer MEDICARE, BC ==
[2018-05-23 10:54] VITALS: BMI 35.5
[~2018-09-10 07:25] MED LIST changes: +BREO ELLIPTA 11 EACH INH; +DILAUDID4 MG PO; +PROAIR HFA8.5 GM INH
== END | disposition home or self-care (01) ==
LOC: D.MRI 07:25
DX: M75.102 Unspecified rotator cuff tear or rupture of left shoulder, not specified as traumatic (principal)

== ENCOUNTER 2018-10-10 10:45 | Day surgery (SDC) | payer MEDICARE, BC ==
[2018-10-09 10:19] LABS: HEMATOCRIT 41.7 % (36.0-48.0); HEMOGLOBIN 13.6 g/dL (12-16); MCH 31.5 pg (26.0-34.0); MCHC 32.6 g/dL (31.0-37.0); MCV 96.5 fL (80.0-100.0); MEAN PLATELET VOLUME 9.7 fL (7.4-10.4); RBC 4.32 10x6/uL (4.00-5.40); RDW 13.7 % (11.5-14.5); WBC 4.8 10x3/uL (4.8-10.8)
[2018-10-09 10:34] LABS: ANION GAP 10.8 mmol/L (8-16); CALCIUM 9.2 mg/dL (8.5-10.1); CARBON DIOXIDE 32.4 mmol/L (21.0-32.0); CREATININE - SERUM 1.2 mg/dL (0.6-1.3); POTASSIUM - SERUM 4.2 mmol/L (3.5-5.1)
[~2018-10-10] VITALS: Ht 160 cm; Wt 83.0 kg
[2018-10-10 11:30] VITALS: BP 142/73; Ht 160 cm; Wt 83.0 kg
[2018-10-10] MEDS ORDERED: NORCO 10-325 TA1 TAB PO (17:12)
--- NOTE | 2018-10-10 19:00 | NUR ---
WALTER CATH REMOVED WITHOUT DIFFICULTY. PATIENT AMBULATES AROUND ROOM WITHOUT UNSTEADINESS. RIGHT FOREARM PIV DC'D WITH TIP INTACT. PATIENT DRESSES IN PERSONAL CLOTHING WITH NURSE'S ASSISTANCE
--- NOTE | 2018-10-10 19:20 | NUR ---
DISCHARGE INSTRUCTIONS REVIEWED WITH PATIENT AND SON. DISCHARGED HOME VIA WHELCHAIR TO PRIVATE VEHICLE WITH SON
--- NOTE | 2018-10-11 14:28 | OP ---
PATIENT NAME: SURAJ GALVIN MEDICAL RECORD: [id number] :50 LOCATION:[facility]ia[facility] ADMISSION DATE: SURGEON: DIANE BOSCH MD DATE OF OPERATION: 10/10/2018 PREOPERATIVE DIAGNOSIS: Grade IV AC separation. POSTOPERATIVE DIAGNOSES: 1. Grade IV AC separation, chronic. 2. Recurrent rotator cuff tear. PROCEDURES: 1. Revision rotator cuff repair. 2. Allograft AC joint reconstruction, all of the left shoulder. SURGEON: Diane Bosch MD. PROGRAM DIRECTOR/TRAFFIC DIRECTOR: JUAN Jara. INTRAOPERATIVE COMPLICATIONS: None. SUMMARY OF PATHOLOGIC FINDINGS: The patient's distal clavicle having already previously had a distal clavicle excision had subluxed posteriorly into the trapezius and required manual manipulation to pull it back over the coracoid into its anatomical position. Furthermore, the medial aspect of the previously placed graft of an SCR had also come loose. This was revised with anchorage. OPERATIVE SUMMARY IN DETAIL: After obtaining the appropriate preoperative orthopedic surgery consent as well as anesthetic consultation, evaluation, and clearance, the patient was brought to the operating room and placed on the operating table in supine position. After general laryngeal mask airway was administered, the patient was placed in beach chair position. All pressure points were well padded. She was held firmly to the operating table using the vacuum pack suction system. The arm was held in Trimano arm holding device. After the left upper extremity was prepped and draped in routine sterile fashion, incision was made anterolateral essentially across the solomon AC joint area. This was taken down and evaluation of the rotator cuff did show the patient to have a recurrent tear of the medial aspect of her SCR. Glenoid was then completely cleaned off and 2 further anchors were then placed. These were Arthrex 3.0 suture tacks. They were then repassed through the graft that was in place using the scorpion device. These were tied, resulting in good reapproximation of the medial aspect of the graft. This did look like it was in overall good condition and continued to have and its attachment to the supraspinatus anteriorly and subscapularis posteriorly. Having completed this, the distal aspect of the clavicle was cleaned of all scar tissue as was the superior aspect of the coracoid. Then, under direct visualization, a large bone reduction forceps was utilized to reduce the AC joint back to its solomon position. The guide pin then for the AC reconstruction set using the dog bone system from Arthrex was then placed through the distal clavicle through the acromion. The nitinol wire loop was then placed and the dog bone system was then brought up through the undersurface of the coracoid through the clavicle. This was then tied off over another dog bone of the clavicle resulting in optimal reduction of the AC joint. Next, anterior tibial tendon allograft was then placed under the coracoid posteriorly, medially underneath the clavicle and then tied anteriorly to the other limb for allograft support. This was tied and OPERATIVE REPORT [id number] SURAJ GALVIN a half hitch sewn with FiberWire. Having completed this, the wound was then copiously irrigated. This was then closed. The deltoid was reapproximated to the acromion with an imbricated umrsa-omla-gmbm suture. The deltoid was further closed with #2 Ethibond. This was then followed by #1 Vicryl, 2-0 Vicryl and skin hiram, all done by Kylie Duff, physician assistant surgery. Having completed this, sterile dressings were applied. The patient was awakened, LMA was removed. She was taken to recovery room in stable condition. All final needle and sponge counts were correct. TRANSINT:[id number] Voice Confirmation ID: [id number] DOCUMENT ID: [id number] DANITZA MONTE, DIANE CHAU at 1428 CC: [id number] DICTATION DATE: 10/11/18 1153 CLAIMS MANAGER: 10/11/18 1255 [facility] 10/10/18 [place] [id number] [place] [address]
== END 2018-10-10 19:20 | disposition home or self-care (01) ==
LOC: D.OPS 10:45 → D.PAN 11:30 → D.OPS 12:40 → D.PAN 12:40 → D.OPS 16:30
PROVIDERS: Orthopaedic Surgery
DX: S43.102A Unspecified dislocation of left acromioclavicular joint, initial encounter (principal); M75.102 Unspecified rotator cuff tear or rupture of left shoulder, not specified as traumatic; Z01.812 Encounter for preprocedural laboratory examination

== ENCOUNTER 2018-10-15 23:00 | Emergency (ER) | payer MEDICARE, BC ==
[~2018-10-15] VITALS: Ht 160 cm; Wt 83.2 kg
[~2018-10-15 23:00] MED LIST changes: +NORCO 10-325 TA1 TAB PO
[2018-10-15 23:03] VITALS: Ht 160 cm; Wt 83.2 kg
[2018-10-15 23:44] LABS: HEMATOCRIT 37.9 % (36.0-48.0); HEMOGLOBIN 12.4 g/dL (12-16); LYMPHOCYTES 40.6 % (15-50); MCH 31.6 pg (26.0-34.0); MCHC 32.7 g/dL (31.0-37.0); MCV 96.4 fL (80.0-100.0); MEAN PLATELET VOLUME 8.9 fL (7.4-10.4); NEUTROPHILS 47.2 % (40-80); PLATELET COUNT 296 10x3/uL (130-400); RBC 3.93 10x6/uL (4.00-5.40); WBC 6.1 10x3/uL (4.8-10.8)
[2018-10-15 23:50] LABS: INR 0.98 (0.85-1.17); PROTIME 12.5 SECONDS (11.6-15.0)
[2018-10-16 00:07] LABS: ALBUMIN 2.9 g/dL (3.4-5.0); ALT (SGPT) 29 U/L (10-68); BILIRUBIN - TOTAL 0.32 mg/dL (0.2-1.3); CALC OSMOLALITY 286 mosm/kg (275-300); CALCIUM 8.8 mg/dL (8.5-10.1); CARBON DIOXIDE 29.9 mmol/L (21.0-32.0); CHLORIDE - SERUM 105 mmol/L (98-107); CKMB 1.5 U/L (0.0-3.6); CREATINE KINASE 69 UL (21-215); CREATININE - SERUM 1.1 mg/dL (0.6-1.3); GLUCOSE 88 mg/dL (74-106); POTASSIUM - SERUM 4.3 mmol/L (3.5-5.1); SODIUM 144 mmol/L (136-145); TROPONIN-I < 0.017 ng/mL (0.000-0.060); UREA NITROGEN 15 mg/dL (7-18); eGFR NON AFRICAN AMERICAN 52 mL/min (90-120)
[2018-10-16 00:23] LABS: ALKALINE PHOSPHATASE 104 U/L (46-116)
[2018-10-16 01:47] VITALS: BP 146/71
== END 2018-10-16 01:48 | disposition home or self-care (01) ==
LOC: D.ER 23:00
PROVIDERS: Family Medicine
DX: R06.00 Dyspnea, unspecified (principal); I25.10 Atherosclerotic heart disease of native coronary artery without angina pectoris; J44.9 Chronic obstructive pulmonary disease, unspecified

== ENCOUNTER 2018-12-05 17:54 | Outpatient (CLI) | payer MEDICARE, BC ==
[2018-10-15 23:03] VITALS: BMI 32.4
== END 2018-12-05 17:57 | disposition home or self-care (01) ==
LOC: D.MAMMO 17:54
PROVIDERS: ATTEND Family Medicine
DX: Z12.31 Encounter for screening mammogram for malignant neoplasm of breast (principal)

== ENCOUNTER → 2018-12-16 11:29 | Outpatient (CLI) | payer MEDICARE, BC ==
[2018-10-15 23:03] VITALS: BMI 32.4
== END | disposition home or self-care (01) ==
LOC: D.US 11:29
PROVIDERS: ATTEND Internal Medicine Cardiovascular Disease
DX: R42 Dizziness and giddiness (principal); R55 Syncope and collapse

== ENCOUNTER 2019-01-06 13:33 | Inpatient (IN) | payer MEDICARE, BC ==
[~2019-01-06] VITALS: Ht 160 cm; Wt 85.5 kg
[2019-01-06 14:30] LABS: BASOPHILS 0.4 % (0-2); EOSINOPHILS 0 % (0-7); HEMATOCRIT 44.2 % (36.0-48.0); HEMOGLOBIN 15.6 g/dL (12-16); MCH 32.8 pg (26.0-34.0); MCHC 35.3 g/dL (31.0-37.0); MCV 93.1 fL (80.0-100.0); MEAN PLATELET VOLUME 9.5 fL (7.4-10.4); NEUTROPHILS 64.6 % (40-80); RBC 4.75 10x6/uL (4.00-5.40); RDW 13.1 % (11.5-14.5); WBC 8.1 10x3/uL (4.8-10.8)
[2019-01-06 14:34] LABS: PLATELET COUNT 393 10x3/uL (130-400)
[2019-01-06 14:43] LABS: UDS - AMPHET NEGATIVE QUAL (NEGATIVE); UDS - BARB NEGATIVE QUAL (NEGATIVE); UDS - BENZO NEGATIVE QUAL (NEGATIVE); UDS - COCAINE NEGATIVE QUAL (NEGATIVE); UDS - OPIATE NEGATIVE QUAL (NEGATIVE); UDS - PCP NEGATIVE QUAL (NEGATIVE); UDS - THC NEGATIVE QUAL (NEGATIVE)
[2019-01-06 14:46] LABS: ALBUMIN 4.1 g/dL (3.4-5.0); ANION GAP 14.6 mmol/L (8-16); BILIRUBIN - TOTAL 0.61 mg/dL (0.2-1.3); CALCIUM 10.3 mg/dL (8.5-10.1); CARBON DIOXIDE 32.7 mmol/L (21.0-32.0); CREATININE - SERUM 1.6 mg/dL (0.6-1.3); MAGNESIUM - SERUM 1.8 mg/dL (1.8-2.4); PROTEIN - SERUM 8.7 g/dL (6.4-8.2)
[2019-01-06 14:55] LABS: POTASSIUM - SERUM 2.3 mmol/L (3.5-5.1)
[2019-01-06 14:56] LABS: APPEARANCE CLEAR (CLEAR); BILIRUBIN NEGATIVE (NEGATIVE); COLOR YELLOW (YELLOW); GLUCOSE NEGATIVE (NEGATIVE); KETONE NEGATIVE (NEGATIVE); NITRITE NEGATIVE (NEGATIVE); PROTEIN NEGATIVE (NEGATIVE); UROBILINOGEN NORMAL (NORMAL)
[2019-01-06 21:06] LABS: MAGNESIUM - SERUM 1.9 mg/dL (1.8-2.4)
[2019-01-06 21:09] LABS: POTASSIUM - SERUM 2.5 mmol/L (3.5-5.1); TROPONIN-I < 0.017 ng/mL (0.000-0.060)
[2019-01-07 02:06] VITALS: BP 121/55; BMI 30.8
[2019-01-07 06:08] VITALS: BP 115/55
[2019-01-07 06:14] LABS: BASOPHILS 0.8 % (0-2); EOSINOPHILS 0.7 % (0-7); HEMATOCRIT 38.3 % (36.0-48.0); IMMATURE GRANULOCYTES 0.1 % (0-5); LYMPHOCYTES 35.7 % (15-50); MCHC 33.9 g/dL (31.0-37.0); MCV 94.3 fL (80.0-100.0); MEAN PLATELET VOLUME 9.6 fL (7.4-10.4); MONOCYTES 12.9 % (2-11); NEUTROPHILS 49.8 % (40-80); PLATELET COUNT 332 10x3/uL (130-400); RBC 4.06 10x6/uL (4.00-5.40); RDW 13.3 % (11.5-14.5); WBC 7.3 10x3/uL (4.8-10.8)
[2019-01-07 06:29] LABS: BILIRUBIN - TOTAL 0.45 mg/dL (0.2-1.3); CALCIUM 8.1 mg/dL (8.5-10.1); CREATININE - SERUM 1.2 mg/dL (0.6-1.3); MAGNESIUM - SERUM 1.7 mg/dL (1.8-2.4)
[2019-01-07 06:51] LABS: ANION GAP 11.9 mmol/L (8-16)
[2019-01-07 06:54] LABS: ALBUMIN 2.9 g/dL (3.4-5.0)
[2019-01-07 06:56] LABS: POTASSIUM - SERUM 2.9 mmol/L (3.5-5.1)
[2019-01-07 10:25] VITALS: BP 108/46
[2019-01-07 15:02] VITALS: Ht 160 cm; Wt 85.5 kg
[2019-01-07 15:55] VITALS: BP 147/54
[2019-01-07 20:55] VITALS: BP 121/58
[2019-01-08 00:46] VITALS: BP 120/67
[2019-01-08 05:29] LABS: BASOPHILS 0.6 % (0-2); HEMATOCRIT 36.9 % (36.0-48.0); IMMATURE GRANULOCYTES 0.2 % (0-5); LYMPHOCYTES 43.8 % (15-50); MCH 31.5 pg (26.0-34.0); MCHC 32.5 g/dL (31.0-37.0); MEAN PLATELET VOLUME 9.5 fL (7.4-10.4); MONOCYTES 10.4 % (2-11); PLATELET COUNT 310 10x3/uL (130-400); RBC 3.81 10x6/uL (4.00-5.40); RDW 13.8 % (11.5-14.5); WBC 6.5 10x3/uL (4.8-10.8)
[2019-01-08 05:43] VITALS: BP 172/58
[2019-01-08 05:43] LABS: ALBUMIN 2.5 g/dL (3.4-5.0); ALKALINE PHOSPHATASE 67 U/L (46-116); ALT (SGPT) 37 U/L (10-68); CALCIUM 7.4 mg/dL (8.5-10.1); CARBON DIOXIDE 25.6 mmol/L (21.0-32.0); CHLORIDE - SERUM 115 mmol/L (98-107); GLUCOSE 88 mg/dL (74-106); MAGNESIUM - SERUM 1.7 mg/dL (1.8-2.4); PROTEIN - SERUM 5.7 g/dL (6.4-8.2); SODIUM 148 mmol/L (136-145)
[2019-01-08 06:00] LABS: MCV 96.9 fL (80.0-100.0)
[2019-01-08 06:32] LABS: CALC OSMOLALITY 294 mosm/kg (275-300); CREATININE - SERUM 0.8 mg/dL (0.6-1.3); POTASSIUM - SERUM 3.6 mmol/L (3.5-5.1); UREA NITROGEN 17 mg/dL (7-18); eGFR NON AFRICAN AMERICAN 75 mL/min (90-120)
--- NOTE | 2019-01-08 12:57 | CN ---
PATIENT NAME:SURAJ GALVIN MEDICAL RECORD: [id number] : 50 LOCATION:[facility] D.2135 ADMIT DATE: 01/06/19 ACCOUNT: [id number] CONSULTING PHYSICIAN: JORGE L SWANSON MD REFERRING PHYSICIAN: GUILLERMO CABRERA MD DATE OF CONSULTATION: 01/07/2019 IDENTIFYING DATA: This patient's record was reviewed. She was not interviewed. She is 68 years old and admitted to the hospital voluntarily. HISTORY OF PRESENT ILLNESS: The patient presented to the Emergency Room with ongoing delusions that there are bugs under her skin. She has a dangerously low potassium of 2.8 and was admitted to the medical floor. She apparently has numerous neurovegetative depressive symptoms, I am not sure if there is a psychiatric history. The urine drug screen was negative. 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 PLAN: I have started the patient on 0.25 mg of Risperdal twice daily. Once the potassium is corrected, she may be transferred to the behavioral unit for further evaluation and treatment. TRANSINT:[id number] Voice Confirmation ID: [id number] DOCUMENT ID: [id number] JORGE L SWANSON MD at 1257 CC: [id number] DICTATION DATE: 01/07/19 1144 PIANO MOVER: 01/07/19 1508 ADM IN [place] [id number] [place] [address]
--- NOTE | 2019-01-08 14:48 | MORECARE ---
CASE MANAGEMENT DISCHARGE SUMMARY PATIENT: SURAJ GALVIN UNIT: [id number] ADM DATE: 01/06/19 AGE: 68 : 50 SEX: F ROOM/BED: D.6525 AUTHOR: VERONIQUE PARSONS PHYSICIAN: REFERRING PHYSICIAN: GUILLERMO CABRERA MD DATE OF SERVICE: 01/08/19 Discharge Plan Patient Name: SURAJ GALVIN [facility] 1950 Planned Disposition: Psych facility Anticipated Discharge Date: 01/08/19 Discharge Date: Expected LOS: 2 Initial Reviewer: [email or web address] Initial Review Date: 01/08/2019 Generated: 01/08/19 3:48 pm Patient Name: SURAJ GALVIN Page [phone] at 1448 All edits/amendments must be made on the electronic document DICTATION DATE: 01/08/191446 CONVERTER SUPERVISOR: DAREK 01/08/191446 RPT#: [id number] DC DATE: STATUS: ADM IN [facility] [address] [place] [address] END OF REPORT
--- NOTE | 2019-01-08 15:00 | MORECARE ---
CASE MANAGEMENT DISCHARGE SUMMARY PATIENT: SURAJ GALVIN UNIT: [id number] ADM DATE: 01/06/19 AGE: 68 : 50 SEX: F ROOM/BED: D.5200 AUTHOR: VERONIQUE PARSONS PHYSICIAN: REFERRING PHYSICIAN: GUILLERMO CABRERA MD DATE OF SERVICE: 01/08/19 Discharge Plan Patient Name: SURAJ GALVIN [facility] [facility] 1950 Planned Disposition: Psych facility Anticipated Discharge Date: 01/08/19 Discharge Date: Expected LOS: 2 Initial Reviewer: [email or web address] Initial Review Date: 01/08/2019 Generated: 01/08/19 4:00 pm DCPIA - Discharge Planning Initial Assessment Updated by [email or web address]: Cory Cline on 01/08/19 2:54 pm * Is the patient Alert and Oriented? Yes * How many steps to enter\exit or inside your home? 2 W/ RAILS * PCP DR. AARON KWAN * Pharmacy [facility] IN [place] * Preadmission Environment Home with Family * ADLs Independent * Equipment Cane Oxygen Rolling Walker Shower Chair Walker * Other Equipment OXYGEN AT NIGHT - [facility] IS PROVIDER * List name and contact numbers for known caregivers / representatives who currently or will assist patient after discharge: LIN MALONE, SON, * Verbal permission to speak to the caregivers and representatives has been obtained from the patient. Yes * Community resources currently utilized Home Health * Please name any agencies selected above. [facility] * Additional services required to return to the preadmission environment? Yes * Can the patient safely return to the preadmission environment? Yes * Has this patient been hospitalized within the prior 30 days at any hospital? No Last DP export: 01/08/19 1:48 p Patient Name: SURAJ GALVIN Page 91976 at 1500 All edits/amendments must be made on the electronic document DICTATION DATE: 01/08/191458 PUNCHER: DAREK 01/08/191458 RPT#: [id number] DC DATE: STATUS: ADM IN [facility] [address] [place] [address] END OF REPORT
--- NOTE | 2019-01-08 15:09 | MORECARE ---
CASE MANAGEMENT DISCHARGE SUMMARY PATIENT: SURAJ GALVIN UNIT: [id number] ADM DATE: 01/06/19 AGE: 68 : 50 SEX: F ROOM/BED: D.3849 AUTHOR: JAQUELINE,DOC PHYSICIAN: REFERRING PHYSICIAN: GUILLERMO CABRERA MD DATE OF SERVICE: 01/08/19 Discharge Plan Patient Name: SURAJ GALVIN Facility: [facility]:[place] : 1950 Planned Disposition: Psych facility Anticipated Discharge Date: 01/08/19 Discharge Date: Expected LOS: 2 Initial Reviewer: [email or web address] Initial Review Date: 01/08/2019 Generated: 01/08/19 4:08 pm Comments DCP- Discharge Planning Updated by [id number]: Cory Moura on 01/08/19 2:[address] Patient Name: SURAJ GALVIN Encounter No: [id number] : 1950 Primary Insurance: MEDICARE A & B Anticipated DC Date: 01-08-2019 Planned Disposition: Psych facility External Planned Provider: [facility] DCP PLANNING NOTE: CM RECEIVED DISCHARGE ORDER TO [facility]. CM MET WITH PT IN ROOM TO DISCUSS DISCHARGE PLANNING AND NEEDS. PT ORIENTED TO SELF, TIME, PLACE AND SITUATION. PT REPORTS LIVING AT HOME INDEPENDENTLY WITH HER ADULT SON. PT HAS CANE, WALKER, ROLLING WALKER, SHOWER CHAIR AND HOME OXYGEN FROM [facility]. PT HAS HOME HEALTH WITH [facility] FOR [facility] AND CANNOT HAVE PHYSICAL THERAPY UNTIL HER SHOULDER SURGERY HAS HEALED AND CLEARED BY DR. BINGHAM. CM DISCUSSED AVAILABILITY OF HOME HEALTH, REHAB SERVICES AND MEDICAL EQUIPMENT. PT DENIES DISCHARGE NEEDS, REPORTS HER SON WILL PICK HER UP FOR DISCHARGE HOME. IMPORTANT MESSAGE FROM MEDICARE PROVIDED AND EXPLAINED. PT ASKED FOR CM TO TELL HER ABOUT [facility]. CM EXPLAINED IT IS A LOCKED PSYCHIATRIC FACILITY AND THE DOCTOR WOULD EVALUATE HER TO ENSURE THERE ARE NO MENTAL PROBLEMS THAT NEED TO BE ADDRESS. PT DOES NOT WANT TO GO TO [facility] AND PREFERS TO GO HOME. CM SPOKE TO DEJAN GREENBERG WHO CONTACTED DR. CABRERA WHO INFORMED THAT PT DOES NOT HAVE A CHOICE AND MUST GO TO [facility]. CM NOTIFIED PT IN ROOM. PT STATES SHE IS NOT HAPPY WITH THE DECISION BUT WILL GO TO BE EVALUATED AT [facility]. HAR[employer] POLICE LAUNCH COMMANDER NURSE AND DEJAN GREENBERG NOTIFIED. CORY MOURA, CASE MANAGEMENT DCPIA - Discharge Planning Initial Assessment Updated by [id number]: Cory Moura on 01/08/19 2:54 pm * Is the patient Alert and Oriented? Yes * How many steps to enter\exit or inside your home? 2 W/ RAILS * PCP DR. AARON KWAN * Pharmacy [facility] IN [place] * Preadmission Environment Home with Family * ADLs Independent * Equipment Cane Oxygen Rolling Walker Shower Chair Walker * Other Equipment [facility] * List name and contact numbers for known caregivers / representatives who currently or will assist patient after discharge: LIN MALONE, SON, * Verbal permission to speak to the caregivers and representatives has been obtained from the patient. Yes * Community resources currently utilized Home Health * Please name any agencies selected above. [facility] * Additional services required to return to the preadmission environment? Yes * Can the patient safely return to the preadmission environment? Yes * Has this patient been hospitalized within the prior 30 days at any hospital? No Coverage Notice Reviewer: [id number] - Cory Moura Notice Issued Date-Time: 01/08/2019 13:20 Notice Type: IM Discharge Notice Notice Delivered To: Patient Relationship to Patient: Machinery Mechanic Name: Delivery Method: HAND - Hand Delivered Candice Days: Prior Verbal Notification: Recipient Understood Notice: Yes Recipient Signature: Yes Med Rec Note Co-signed by Attending: Coverage Notice Comment: Last DP export: 01/08/19 2:00 p Patient Name: SURAJ GALVIN Page 43401 at 1509 All edits/amendments must be made on the electronic document DICTATION DATE: 01/08/191507 SENIOR ANDROID DEVELOPER: DAREK 01/08/19 1508 RPT#: [id number] DC DATE: STATUS: ADM IN [facility] [address] [place] [address] END OF REPORT
--- NOTE | 2019-01-08 15:17 | MORECARE ---
CASE MANAGEMENT DISCHARGE SUMMARY PATIENT: SURAJ GALVIN UNIT: [id number] ADM DATE: 01/06/19 AGE: 68 : 50 SEX: F ROOM/BED: D.4187 AUTHOR: JAQUELINE,DOC PHYSICIAN: REFERRING PHYSICIAN: GUILLERMO CABRERA MD DATE OF SERVICE: 01/08/19 Discharge Plan Patient Name: SURAJ GALVIN Facility: [facility]:[place] : 1950 Planned Disposition: Psych facility Anticipated Discharge Date: 01/08/19 Discharge Date: Expected LOS: 2 Initial Reviewer: [email or web address] Initial Review Date: 01/08/2019 Generated: 01/08/19 4:16 pm Comments DCP- Discharge Planning Updated by [email or web address]: Cory Moura on 01/08/19 2:[address] Patient Name: SURAJ GALVIN Encounter No: [id number] : 1950 Primary Insurance: MEDICARE A & B Anticipated DC Date: 01-08-2019 Planned Disposition: Psych facility External Planned Provider: [facility] DCP PLANNING NOTE: CM RECEIVED DISCHARGE ORDER TO [facility]. CM MET WITH PT IN ROOM TO DISCUSS DISCHARGE PLANNING AND NEEDS. PT ORIENTED TO SELF, TIME, PLACE AND SITUATION. PT REPORTS LIVING AT HOME INDEPENDENTLY WITH HER ADULT SON. PT HAS CANE, WALKER, ROLLING WALKER, SHOWER CHAIR AND HOME OXYGEN FROM [facility]. [facility] AND CANNOT HAVE PHYSICAL THERAPY UNTIL HER SHOULDER SURGERY HAS HEALED AND CLEARED BY DR. BINGHAM. CM DISCUSSED AVAILABILITY OF HOME HEALTH, REHAB SERVICES AND MEDICAL EQUIPMENT. PT DENIES DISCHARGE NEEDS, REPORTS HER SON WILL PICK HER UP FOR DISCHARGE HOME. IMPORTANT MESSAGE FROM MEDICARE PROVIDED AND EXPLAINED. PT ASKED FOR CM TO TELL HER ABOUT [facility]. CM EXPLAINED IT IS A LOCKED PSYCHIATRIC FACILITY AND THE DOCTOR WOULD EVALUATE HER TO ENSURE THERE ARE NO MENTAL PROBLEMS THAT NEED TO BE ADDRESS. PT ADMITS SHE WAS CONFUSED UPON ARRIVAL AND HAD NOT BEEN TAKING HER MEDICATIONS WHEN SHE DID NOT THINK SHE COULD AFFORD THEM. PT STATES SHE KNOWS NOW THEY ARE IMPORTANT AND CAN AFFORD HER MEDICATIONS AND WILL TAKE PRESRIBED. PT DOES NOT WANT TO GO TO [facility] AND PREFERS TO GO HOME. CM SPOKE TO DEJAN GREENBERG WHO CONTACTED DR. CARBERA WHO INFORMED THAT PT DOES NOT HAVE A CHOICE AND MUST GO TO [facility]. CM NOTIFIED PT IN ROOM. PT STATES SHE IS NOT HAPPY WITH THE DECISION BUT WILL GO TO BE EVALUATED AT [facility]. FACILITY MAINTENANCE TECHNICIAN NURSE AND DEJAN GREENBERG NOTIFIED. CORY MOURA, CASE MANAGEMENT DCPIA - Discharge Planning Initial Assessment Updated by [id number]: Cory Moura on 01/08/19 2:54 pm * Is the patient Alert and Oriented? Yes * How many steps to enter\exit or inside your home? 2 W/ RAILS * PCP DR. AARON KWAN * Pharmacy [facility] [place] * Preadmission Environment Home with Family * ADLs Independent * Equipment Cane Oxygen Rolling Walker Shower Chair Walker * Other [facility] * List name and contact numbers for known caregivers / representatives who currently or will assist patient after discharge: LIN MALONE, SON, * Verbal permission to speak to the caregivers and representatives has been obtained from the patient. Yes * Community resources currently utilized Home Health * Please name any agencies selected above. [facility] * Additional services required to return to the preadmission environment? Yes * Can the patient safely return to the preadmission environment? Yes * Has this patient been hospitalized within the prior 30 days at any hospital? No Coverage Notice Reviewer: [id number] - Cory Moura Notice Issued Date-Time: 01/08/2019 13:20 Notice Type: IM Discharge Notice Notice Delivered To: Patient Relationship to Patient: Sports Medicine Coordinator Name: Delivery Method: HAND - Hand Delivered Candice Days: Prior Verbal Notification: Recipient Understood Notice: Yes Recipient Signature: Yes Med Rec Note Co-signed by Attending: Coverage Notice Comment: Last DP export: 01/08/19 2:08 p Patient Name: SURAJ GALVIN Page 40759 at 1517 All edits/amendments must be made on the electronic document DICTATION DATE: 01/08/191515 PSYCHOLOGY INSTRUCTOR: DAREK 01/08/191515 RPT#: [id number] DC DATE: STATUS: ADM IN [facility] [address] [place] [address] END OF REPORT
[2019-01-08 18:17] VITALS: BP 110/50
[2019-01-08 21:07] VITALS: BP 128/62
[2019-01-09 05:02] VITALS: BP 123/56
[2019-01-09 06:27] LABS: BASOPHILS 0.5 % (0-2); EOSINOPHILS 1.8 % (0-7); HEMATOCRIT 35.4 % (36.0-48.0); HEMOGLOBIN 11.6 g/dL (12-16); IMMATURE GRANULOCYTES 0.3 % (0-5); LYMPHOCYTES 36.2 % (15-50); MCHC 32.8 g/dL (31.0-37.0); MCV 97.5 fL (80.0-100.0); MEAN PLATELET VOLUME 9.3 fL (7.4-10.4); MONOCYTES 9.8 % (2-11); NEUTROPHILS 51.4 % (40-80); PLATELET COUNT 293 10x3/uL (130-400); RBC 3.63 10x6/uL (4.00-5.40); RDW 14.1 % (11.5-14.5)
[2019-01-09 07:01] LABS: ALBUMIN 2.4 g/dL (3.4-5.0); ALKALINE PHOSPHATASE 64 U/L (46-116); ALT (SGPT) 36 U/L (10-68); CALC OSMOLALITY 285 mosm/kg (275-300); CALCIUM 7.4 mg/dL (8.5-10.1); CARBON DIOXIDE 25.6 mmol/L (21.0-32.0); CHLORIDE - SERUM 111 mmol/L (98-107); CREATININE - SERUM 0.7 mg/dL (0.6-1.3); GLUCOSE 89 mg/dL (74-106); MAGNESIUM - SERUM 1.7 mg/dL (1.8-2.4); POTASSIUM - SERUM 3.3 mmol/L (3.5-5.1); PROTEIN - SERUM 5.8 g/dL (6.4-8.2); SODIUM 144 mmol/L (136-145); eGFR NON AFRICAN AMERICAN 88 mL/min (90-120)
[2019-01-09 07:04] LABS: UREA NITROGEN 12 mg/dL (7-18)
--- NOTE | 2019-01-09 08:57 | MORECARE ---
CASE MANAGEMENT DISCHARGE SUMMARY PATIENT: SURAJ GALVIN UNIT: [id number] ADM DATE: 01/06/19 AGE: 68 : 50 SEX: F ROOM/BED: D.9935 AUTHOR: VERONIQUE PARSONS PHYSICIAN: REFERRING PHYSICIAN: GUILLERMO CABRERA MD DATE OF SERVICE: 01/09/19 Discharge Plan Patient Name: SURAJ GALVIN Facility: [facility]:[place] : 1950 Planned Disposition: Home with Home Health Anticipated Discharge Date: 01/09/19 Discharge Date: Expected LOS: 3 Initial Reviewer: [email or web address] Initial Review Date: 01/08/2019 Generated: 01/09/19 9:57 am Comments DCP- Discharge Planning Updated by [id number]: Cory Moura on 01/08/19 2:[address] Patient Name: SURAJ GALVIN Encounter No: [id number] : 1950 Primary Insurance: MEDICARE A & B Anticipated DC Date: 01-08-2019 Planned Disposition: Psych facility External Planned Provider: [facility] DCP PLANNING NOTE: CM RECEIVED DISCHARGE ORDER TO [facility]. CM MET WITH PT IN ROOM TO DISCUSS DISCHARGE PLANNING AND NEEDS. PT ORIENTED TO SELF, TIME, PLACE AND SITUATION. PT REPORTS LIVING AT HOME INDEPENDENTLY WITH HER ADULT SON. PT HAS CANE, WALKER, ROLLING WALKER, SHOWER CHAIR AND HOME OXYGEN FROM [facility]. PT HAS HOME HEALTH WITH [facility] AND CANNOT HAVE PHYSICAL THERAPY UNTIL HER SHOULDER SURGERY HAS HEALED AND CLEARED BY DR. BINGHAM. CM DISCUSSED AVAILABILITY OF HOME HEALTH, REHAB SERVICES AND MEDICAL EQUIPMENT. PT DENIES DISCHARGE NEEDS, REPORTS HER SON WILL PICK HER UP FOR DISCHARGE HOME. IMPORTANT MESSAGE FROM MEDICARE PROVIDED AND EXPLAINED. PT ASKED FOR CM TO TELL HER ABOUT [facility]. CM EXPLAINED IT IS A LOCKED PSYCHIATRIC FACILITY AND THE DOCTOR WOULD EVALUATE HER TO ENSURE THERE ARE NO MENTAL PROBLEMS THAT NEED TO BE ADDRESS. PT ADMITS SHE WAS CONFUSED UPON ARRIVAL AND HAD NOT BEEN TAKING HER MEDICATIONS WHEN SHE DID NOT THINK SHE COULD AFFORD THEM. PT STATES SHE KNOWS NOW THEY ARE IMPORTANT AND CAN AFFORD HER MEDICATIONS AND WILL TAKE PRESRIBED. PT DOES NOT WANT TO GO TO [facility] AND PREFERS TO GO HOME. CM SPOKE TO DEJAN GREENBERG WHO CONTACTED DR. CABRERA WHO INFORMED THAT PT DOES NOT HAVE A CHOICE AND MUST GO TO [facility]. CM NOTIFIED PT IN ROOM. PT STATES SHE IS NOT HAPPY WITH THE DECISION BUT WILL GO TO BE EVALUATED AT [facility]. AUTO DRIVER NURSE AND DEJAN GREENBERG NOTIFIED. CORY MOURA, CASE MANAGEMENT DCPIA - Discharge Planning Initial Assessment Updated by [id number]: Coyr Moura on 01/08/19 2:54 pm * Is the patient Alert and Oriented? Yes * How many steps to enter\exit or inside your home? 2 W/ RAILS * PCP DR. AARON KWAN * Pharmacy [facility] IN [place] * Preadmission Environment Home with Family * ADLs Independent * Equipment Cane Oxygen Rolling Walker Shower Chair Walker * Other Equipment OXYGEN AT NIGHT - [facility] IS PROVIDER * List name and contact numbers for known caregivers / representatives who currently or will assist patient after discharge: LIN MALONE, SON, * Verbal permission to speak to the caregivers and representatives has been obtained from the patient. Yes * Community resources currently utilized Home Health * Please name any agencies selected above. [facility] * Additional services required to return to the preadmission environment? Yes * Can the patient safely return to the preadmission environment? Yes * Has this patient been hospitalized within the prior 30 days at any hospital? No Coverage Notice Reviewer: [id number] - Cory Moura Notice Issued Date-Time: 01/08/2019 13:20 Notice Type: IM Discharge Notice Notice Delivered To: Patient Relationship to Patient: Hydro Plant Operator Name: Delivery Method: HAND - Hand Delivered Candice Days: Prior Verbal Notification: Recipient Understood Notice: Yes Recipient Signature: Yes Med Rec Note Co-signed by Attending: Coverage Notice Comment: Last DP export: 01/08/19 2:17 p Patient Name: SURAJ GALVIN Page 56301 at 0857 All edits/amendments must be made on the electronic document DICTATION DATE: 01/09/19855 TELLER: DAREK 01/09/19855 RPT#: [id number] DC DATE: STATUS: ADM IN [facility] [address] [place] [address] END OF REPORT
[2019-01-09 09:39] VITALS: BP 128/62
--- NOTE | 2019-01-09 10:07 | MORECARE ---
CASE MANAGEMENT DISCHARGE SUMMARY PATIENT: SURAJ GALVIN UNIT: [id number] ADM DATE: 01/06/19 AGE: 68 : 50 SEX: F ROOM/BED: D.5219 AUTHOR: JAQUELINE,DOC PHYSICIAN: REFERRING PHYSICIAN: GUILLERMO CABRERA MD DATE OF SERVICE: 01/09/19 Discharge Plan Patient Name: SURAJ GALVIN Facility: [facility]:[place] : 1950 Planned Disposition: Home with Home Health Anticipated Discharge Date: 01/09/19 Discharge Date: Expected LOS: 3 Initial Reviewer: [id number] Initial Review Date: 01/08/2019 Generated: 01/09/19 11:07 am Comments DCP- Discharge Planning Updated by [id number]: Cory Moura on 01/09/19 9:[address] Patient Name: SURAJ GALVIN Encounter No: [id number] : 1950 Primary Insurance: MEDICARE A & B Anticipated DC Date: 01-09-2019 Planned Disposition: Home with Home Health External Planned Provider: [facility] DCP follow-up note: PT DID NOT DISCHARGE TO [facility], THEY WILL NOT ACCEPT PT IS NOT APPROPRIATE FOR PSYCHIATRIC FACILITY ADMISSION. LAINEY OF [facility] EVALUTED PT LAST EVENING AND INFORMED DEJAN GREENBERG. CM MET WITH PT IN ROOM, DISCUSSED DISCHARGE PLAN. PT WILL GO HOME, WANTS HOME HEALTH RESUMPTION WITH [facility]. PROVIDER LISTING GIVEN, PT SIGNED CHOICE FOR HER CURRENT HOME HEALTH OF [facility]. CM TO FAX DISCHARGE INFORMATION TO [facility] AT [phone], CALL AND NOTIFY HOME HEALTH OF HOSPITAL DISCHARGE AT [phone]. Cory Moura, CASE MANAGEMENT DCP- Discharge Planning Updated by [id number]: Cory Moura on 01/08/19 2:[address] Patient Name: SURAJ GALVIN Encounter No: [id number] : 1950 Primary Insurance: MEDICARE A & B Anticipated DC Date: 01-08-2019 Planned Disposition: Psych facility External Planned Provider: [facility] DCP PLANNING NOTE: CM RECEIVED DISCHARGE ORDER TO [facility]. CM MET WITH PT IN ROOM TO DISCUSS DISCHARGE PLANNING AND NEEDS. PT ORIENTED TO SELF, TIME, PLACE AND SITUATION. PT REPORTS LIVING AT HOME INDEPENDENTLY WITH HER ADULT SON. PT HAS CANE, WALKER, ROLLING WALKER, SHOWER CHAIR AND HOME OXYGEN FROM [facility]. PT HAS HOME HEALTH WITH [facility] AND CANNOT HAVE PHYSICAL THERAPY UNTIL HER SHOULDER SURGERY HAS HEALED AND CLEARED BY DR. BINGHAM. CM DISCUSSED AVAILABILITY OF HOME HEALTH, REHAB SERVICES AND MEDICAL EQUIPMENT. PT DENIES DISCHARGE NEEDS, REPORTS HER SON WILL PICK HER UP FOR DISCHARGE HOME. IMPORTANT MESSAGE FROM MEDICARE PROVIDED AND EXPLAINED. PT ASKED FOR CM TO TELL HER ABOUT [facility]. CM EXPLAINED IT IS A LOCKED PSYCHIATRIC FACILITY AND THE DOCTOR WOULD EVALUATE HER TO ENSURE THERE ARE NO MENTAL PROBLEMS THAT NEED TO BE ADDRESS. PT ADMITS SHE WAS CONFUSED UPON ARRIVAL AND HAD NOT BEEN TAKING HER MEDICATIONS WHEN SHE DID NOT THINK SHE COULD AFFORD THEM. PT STATES SHE KNOWS NOW THEY ARE IMPORTANT AND CAN AFFORD HER MEDICATIONS AND WILL TAKE PRESRIBED. PT DOES NOT WANT TO GO TO [facility] AND PREFERS TO GO HOME. CM SPOKE TO DEJAN GREENBERG WHO CONTACTED DR. CABRERA WHO INFORMED THAT PT DOES NOT HAVE A CHOICE AND MUST GO TO [facility]. CM NOTIFIED PT IN ROOM. PT STATES SHE IS NOT HAPPY WITH THE DECISION BUT WILL GO TO BE EVALUATED AT [facility]. CHIP MIXER NURSE AND DEJAN GREENBERG NOTIFIED. CORY MOURA, CASE MANAGEMENT DCPIA - Discharge Planning Initial Assessment Updated by [id number]: Cory Moura on 01/08/19 2:54 pm * Is the patient Alert and Oriented? Yes * How many steps to enter\exit or inside your home? 2 W/ RAILS * PCP DR. AARON KWAN * Pharmacy [facility] IN [place] * Preadmission Environment Home with Family * ADLs Independent * Equipment Cane Oxygen Rolling Walker Shower Chair Walker * Other Equipment OXYGEN AT NIGHT - [facility] IS PROVIDER * List name and contact numbers for known caregivers / representatives who currently or will assist patient after discharge: LIN MALONE, SON, * Verbal permission to speak to the caregivers and representatives has been obtained from the patient. Yes * Community resources currently utilized Home Health * Please name any agencies selected above. [facility] * Additional services required to return to the preadmission environment? Yes * Can the patient safely return to the preadmission environment? Yes * Has this patient been hospitalized within the prior 30 days at any hospital? No Coverage Notice Reviewer: [id number] Wilson Moura Notice Issued Date-Time: 01/08/2019 13:20 Notice Type: IM Discharge Notice Notice Delivered To: Patient Relationship to Patient: Demand Generator Manager Name: Delivery Method: HAND - Hand Delivered Candice Days: Prior Verbal Notification: Recipient Understood Notice: Yes Recipient Signature: Yes Med Rec Note Co-signed by Attending: Coverage Notice Comment: Reviewer: [id number] Wilson Moura Notice Issued Date-Time: 01/09/2019 9:00 Notice Type: Patient Choice Letter Notice Delivered To: Patient Relationship to Patient: Demand Generator Manager Name: Delivery Method: HAND - Hand Delivered Candice Days: Prior Verbal Notification: Recipient Understood Notice: Yes Recipient Signature: Yes Med Rec Note Co-signed by Attending: Coverage Notice Comment: [facility] Last DP export: 01/09/19 7:57 a Patient Name: SURAJ GALVIN Page 10847 at 1007 All edits/amendments must be made on the electronic document DICTATION DATE: 01/09/19 1006 PLANT TECHNICIAN/CONTROL ROOM OPERATOR: DAREK 01/09/19 1006 RPT#: [id number] DC DATE: STATUS: ADM IN [facility] [address] [place] [address] END OF REPORT
--- NOTE | 2019-01-09 11:36 | MORECARE ---
CASE MANAGEMENT DISCHARGE SUMMARY PATIENT: SURAJ GALVIN UNIT: [id number] ADM DATE: 01/06/19 AGE: 68 : 50 SEX: F ROOM/BED: D.9372 AUTHOR: JAQUELINE,DOC PHYSICIAN: REFERRING PHYSICIAN: GUILLERMO CABRERA MD DATE OF SERVICE: 01/09/19 Discharge Plan Patient Name: SURAJ GALVIN Facility: [facility]:[place] : 1950 Planned Disposition: Home with Home Health Anticipated Discharge Date: 01/09/19 Discharge Date: Expected LOS: 3 Initial Reviewer: [id number] Initial Review Date: 01/08/2019 Generated: 01/09/19 12:36 pm Comments DCP- Discharge Planning Updated by [email or web address]: Cory Moura on 01/09/19 9:[address] Patient Name: SURAJ GALVIN Encounter No: [id number] : 1950 Primary Insurance: MEDICARE A & B Anticipated DC Date: 01-09-2019 Planned Disposition: Home with Home Health External Planned Provider: [facility] DCP follow-up note: PT DID NOT DISCHARGE TO [facility], THEY WILL NOT ACCEPT PT IS NOT APPROPRIATE FOR PSYCHIATRIC FACILITY ADMISSION. LAINEY OF [facility] EVALUTED PT LAST EVENING AND INFORMED DEJAN GREENBERG. CM MET WITH PT IN ROOM, DISCUSSED DISCHARGE PLAN. PT WILL GO HOME, WANTS HOME HEALTH RESUMPTION WITH [facility]. PROVIDER LISTING GIVEN, PT SIGNED CHOICE FOR HER CURRENT [facility]. CM TO FAX DISCHARGE INFORMATION TO [facility] AT [phone], CALL AND NOTIFY HOME HEALTH OF HOSPITAL DISCHARGE AT [phone]. Cory Moura, CASE MANAGEMENT DCP- Discharge Planning Updated by [email or web address]: Cory Moura on 01/08/19 2:[address] Patient Name: SURAJ GALVIN Encounter No: [id number] : 1950 Primary Insurance: MEDICARE A & B Anticipated DC Date: 01-08-2019 Planned Disposition: Psych facility External Planned Provider: [facility] DCP PLANNING NOTE: CM RECEIVED DISCHARGE ORDER TO [facility]. CM MET WITH PT IN ROOM TO DISCUSS DISCHARGE PLANNING AND NEEDS. PT ORIENTED TO SELF, TIME, PLACE AND SITUATION. PT REPORTS LIVING AT HOME INDEPENDENTLY WITH HER ADULT SON. PT HAS CANE, WALKER, ROLLING WALKER, SHOWER CHAIR AND HOME OXYGEN FROM [facility]. PT HAS HOME HEALTH WITH [facility] FOR [facility] AND CANNOT HAVE PHYSICAL THERAPY UNTIL HER SHOULDER SURGERY HAS HEALED AND CLEARED BY DR. BINGHAM. CM DISCUSSED AVAILABILITY OF HOME HEALTH, REHAB SERVICES AND MEDICAL EQUIPMENT. PT DENIES DISCHARGE NEEDS, REPORTS HER SON WILL PICK HER UP FOR DISCHARGE HOME. IMPORTANT MESSAGE FROM MEDICARE PROVIDED AND EXPLAINED. PT ASKED FOR CM TO TELL HER ABOUT [facility]. CM EXPLAINED IT IS A LOCKED PSYCHIATRIC FACILITY AND THE DOCTOR WOULD EVALUATE HER TO ENSURE THERE ARE NO MENTAL PROBLEMS THAT NEED TO BE ADDRESS. PT ADMITS SHE WAS CONFUSED UPON ARRIVAL AND HAD NOT BEEN TAKING HER MEDICATIONS WHEN SHE DID NOT THINK SHE COULD AFFORD THEM. PT STATES SHE KNOWS NOW THEY ARE IMPORTANT AND CAN AFFORD HER MEDICATIONS AND WILL TAKE PRESRIBED. PT DOES NOT WANT TO GO TO [facility] AND PREFERS TO GO HOME. CM SPOKE TO DEJAN GREENBERG WHO CONTACTED DR. CABRERA WHO INFORMED THAT PT DOES NOT HAVE A CHOICE AND MUST GO TO [facility]. CM NOTIFIED PT IN ROOM. PT STATES SHE IS NOT HAPPY WITH THE DECISION BUT WILL GO TO BE EVALUATED AT [facility]. STERILE PREPARATION TECHNICIAN NURSE AND DEJAN GREENBERG NOTIFIED. CORY MOURA, CASE MANAGEMENT DCPIA - Discharge Planning Initial Assessment Updated by [id number]: Cory Moura on 01/08/19 2:54 pm * Is the patient Alert and Oriented? Yes * How many steps to enter\exit or inside your home? 2 W/ RAILS * PCP DR. AARON KWAN * Pharmacy [facility] IN [place] * Preadmission Environment Home with Family * ADLs Independent * Equipment Cane Oxygen Rolling Walker Shower Chair Walker * Other Equipment OXYGEN AT NIGHT - [facility] IS PROVIDER * List name and contact numbers for known caregivers / representatives who currently or will assist patient after discharge: LIN MALONE, SON, * Verbal permission to speak to the caregivers and representatives has been obtained from the patient. Yes * Community resources currently utilized Home Health * Please name any agencies selected above. [facility] * Additional services required to return to the preadmission environment? Yes * Can the patient safely return to the preadmission environment? Yes * Has this patient been hospitalized within the prior 30 days at any hospital? No Coverage Notice Reviewer: [id number] Wilson Moura Notice Issued Date-Time: 01/08/2019 13:20 Notice Type: IM Discharge Notice Notice Delivered To: Patient Relationship to Patient: Marketing Designer Name: Delivery Method: HAND - Hand Delivered Candice Days: Prior Verbal Notification: Recipient Understood Notice: Yes Recipient Signature: Yes Med Rec Note Co-signed by Attending: Coverage Notice Comment: Reviewer: [id number] Wilson Moura Notice Issued Date-Time: 01/09/2019 9:00 Notice Type: Patient Choice Letter Notice Delivered To: Patient Relationship to Patient: Marketing Designer Name: Delivery Method: HAND - Hand Delivered Candice Days: Prior Verbal Notification: Recipient Understood Notice: Yes Recipient Signature: Yes Med Rec Note Co-signed by Attending: Coverage Notice Comment: [facility] Last DP export: 01/09/19 9:07 a Patient Name: SURAJ GALVIN Page 13263 at 1136 All edits/amendments must be made on the electronic document DICTATION DATE: 01/09/19 113 SENIOR LINUX UNIX ADMINISTRATOR: DAREK 01/09/19 1136 RPT#: [id number] DC DATE: STATUS: ADM IN [facility] [address] [place] [address] END OF REPORT
--- NOTE | 2019-01-09 11:43 | MORECARE ---
CASE MANAGEMENT DISCHARGE SUMMARY PATIENT: SURAJ GALVIN UNIT: [id number] ADM DATE: 01/06/19 AGE: 68 : 50 SEX: F ROOM/BED: D.2559 AUTHOR: JAQUELINE,DOC PHYSICIAN: REFERRING PHYSICIAN: GUILLERMO CABRERA MD DATE OF SERVICE: 01/09/19 Discharge Plan Patient Name: SURAJ GALVIN Facility: [facility]:[place] : 1950 Planned Disposition: Home with Home Health Anticipated Discharge Date: 01/09/19 Discharge Date: Expected LOS: 3 Initial Reviewer: [id number] Initial Review Date: 01/08/2019 Generated: 01/09/19 12:43 pm Comments DCP- Discharge Planning Updated by [id number]: Cory Moura on 01/09/19 9:[address] Patient Name: SURAJ GALVIN Encounter No: [id number] : 1950 Primary Insurance: MEDICARE A & B Anticipated DC Date: 01-09-2019 Planned Disposition: Home with Home Health External Planned Provider: [facility] DCP follow-up note: PT DID NOT DISCHARGE TO [facility], THEY WILL NOT ACCEPT PT IS NOT APPROPRIATE FOR PSYCHIATRIC FACILITY ADMISSION. LAINE[facility] OF [facility] EVALUTED PT LAST EVENING AND INFORMED DEJAN GREENBERG. CM MET WITH PT IN ROOM, DISCUSSED DISCHARGE PLAN. PT WILL GO HOME, WANTS HOME HEALTH RESUMPTION WITH [facility]. PROVIDER LISTING GIVEN, PT SIGNED CHOICE FOR HER CURRENT HOME HEALTH OF [facility]. CM TO FAX DISCHARGE INFORMATION TO [facility] [employer] AT [phone], CALL AND NOTIFY HOME HEALTH OF HOSPITAL DISCHARGE AT [phone]. Cory Moura, CASE MANAGEMENT DCP- Discharge Planning Updated by [id number]: Cory Moura on 01/08/19 2:[address] Patient Name: SURAJ GALVIN Encounter No: [id number] : 1950 Primary Insurance: MEDICARE A & B Anticipated DC Date: 01-08-2019 Planned Disposition: Psych facility External Planned Provider: [facility] DCP PLANNING NOTE: CM RECEIVED DISCHARGE ORDER TO [facility]. CM MET WITH PT IN ROOM TO DISCUSS DISCHARGE PLANNING AND NEEDS. PT ORIENTED TO SELF, TIME, PLACE AND SITUATION. PT REPORTS LIVING AT HOME INDEPENDENTLY WITH HER ADULT SON. PT HAS CANE, WALKER, ROLLING WALKER, SHOWER CHAIR AND HOME OXYGEN FROM [facility]. PT HAS HOME HEALTH WITH [facility] FOR [facility] AND CANNOT HAVE PHYSICAL THERAPY UNTIL HER SHOULDER SURGERY HAS HEALED AND CLEARED BY DR. BINGHAM. CM DISCUSSED AVAILABILITY OF HOME HEALTH, REHAB SERVICES AND MEDICAL EQUIPMENT. PT DENIES DISCHARGE NEEDS, REPORTS HER SON WILL PICK HER UP FOR DISCHARGE HOME. IMPORTANT MESSAGE FROM MEDICARE PROVIDED AND EXPLAINED. PT ASKED FOR CM TO TELL HER ABOUT [facility]. CM EXPLAINED IT IS A LOCKED PSYCHIATRIC FACILITY AND THE DOCTOR WOULD EVALUATE HER TO ENSURE THERE ARE NO MENTAL PROBLEMS THAT NEED TO BE ADDRESS. PT ADMITS SHE WAS CONFUSED UPON ARRIVAL AND HAD NOT BEEN TAKING HER MEDICATIONS WHEN SHE DID NOT THINK SHE COULD AFFORD THEM. PT STATES SHE KNOWS NOW THEY ARE IMPORTANT AND CAN AFFORD HER MEDICATIONS AND WILL TAKE PRESRIBED. PT DOES NOT WANT TO GO TO [facility] AND PREFERS TO GO HOME. CM SPOKE TO DEJAN GREENBERG WHO CONTACTED DR. CABRERA WHO INFORMED THAT PT DOES NOT HAVE A CHOICE AND MUST GO TO [facility]. CM NOTIFIED PT IN ROOM. PT STATES SHE IS NOT HAPPY WITH THE DECISION BUT WILL GO TO BE EVALUATED AT [facility]. MANUFACTURING PROJECT MANAGER NURSE AND DEJAN GREENBERG NOTIFIED. CORY MOURA, CASE MANAGEMENT DCPIA - Discharge Planning Initial Assessment Updated by [id number]: Cory Moura on 01/08/19 2:54 pm * Is the patient Alert and Oriented? Yes * How many steps to enter\exit or inside your home? 2 W/ RAILS * PCP DR. AARON KWAN * Pharmacy [facility] IN [place] * Preadmission Environment Home with Family * ADLs Independent * Equipment Cane Oxygen Rolling Walker Shower Chair Walker * Other Equipment OXYGEN AT NIGHT - [facility] IS PROVIDER * List name and contact numbers for known caregivers / representatives who currently or will assist patient after discharge: LIN MALONE, SON, * Verbal permission to speak to the caregivers and representatives has been obtained from the patient. Yes * Community resources currently utilized Home Health * Please name any agencies selected above. [facility] * Additional services required to return to the preadmission environment? Yes * Can the patient safely return to the preadmission environment? Yes * Has this patient been hospitalized within the prior 30 days at any hospital? No External Providers External Provider: [facility] [place] Next Contact Date: 01/09/2019 Service Request Date: Service Type: Resolution: Reviewer: Comments: Coverage Notice Reviewer: [id number] Moura Notice Issued Date-Time: 01/08/2019 13:20 Notice Type: IM Discharge Notice Notice Delivered To: Patient Relationship to Patient: Accountant Supervisor Name: Delivery Method: HAND - Hand Delivered Candice Days: Prior Verbal Notification: Recipient Understood Notice: Yes Recipient Signature: Yes Med Rec Note Co-signed by Attending: Coverage Notice Comment: Reviewer: [id number] Wilson Moura Notice Issued Date-Time: 01/09/2019 9:00 Notice Type: Patient Choice Letter Notice Delivered To: Patient Relationship to Patient: Accountant Supervisor Name: Delivery Method: HAND - Hand Delivered Candice Days: Prior Verbal Notification: Recipient Understood Notice: Yes Recipient Signature: Yes Med Rec Note Co-signed by Attending: Coverage Notice Comment: [facility] Last DP export: 01/09/19 10:36 a Patient Name: SURAJ GALVIN Page 37704 at 1143 All edits/amendments must be made on the electronic document DICTATION DATE: 01/09/19 1143 PRIMING MIXTURE CARRIER: DAREK 01/09/19 1143 RPT#: [id number] DC DATE: STATUS: ADM IN [facility] [address] [place] [address] END OF REPORT
--- NOTE | 2019-01-09 11:53 | MORECARE ---
CASE MANAGEMENT DISCHARGE SUMMARY PATIENT: SURAJ GALVIN UNIT: [id number] ADM DATE: 01/06/19 AGE: 68 : 50 SEX: F ROOM/BED: D.4752 AUTHOR: JAQUELINE,DOC PHYSICIAN: REFERRING PHYSICIAN: GUILLERMO CABRERA MD DATE OF SERVICE: 01/09/19 Discharge Plan Patient Name: SURAJ GALVIN Facility: [facility]:[place] : 1950 Planned Disposition: Home with Home Health Anticipated Discharge Date: 01/09/19 Discharge Date: Expected LOS: 3 Initial Reviewer: [email or web address] Initial Review Date: 01/08/2019 Generated: 01/09/19 12:53 pm Comments DCP- Discharge Planning Updated by [email or web address]: Cory Cline on 01/09/19 10:[address] Patient Name: SURAJ GALVIN Encounter No: [id number] : 1950 Primary Insurance: MEDICARE A & B Anticipated DC Date: 01-09-2019 Planned Disposition: Home with Home Health External Planned Provider: [facility] DCP follow-up note: PT DID NOT DISCHARGE TO [facility], THEY WILL NOT ACCEPT PT IS NOT APPROPRIATE FOR PSYCHIATRIC FACILITY ADMISSION. LAINEY OF [facility] EVALUTED PT LAST EVENING AND INFORMED DEJAN GREENBERG. NAVIN MET WITH PT IN ROOM, DISCUSSED DISCHARGE PLAN. PT WILL GO HOME, WANTS HOME HEALTH RESUMPTION WITH [facility]. PROVIDER LISTING GIVEN, PT SIGNED CHOICE FOR HER CURRENT [facility] OF [facility]. CM TO FAX DISCHARGE INFORMATION TO [facility] AT [phone], CALL AND NOTIFY HOME [facility] OF HOSPITAL DISCHARGE AT [phone]. Cory Cline, CASE MANAGEMENT Appended by Cory Cline on 01/09/2019 11:49 CDT: CM PAGED AND SPOKE TO DEJAN GREENBERG WHO INFORMED CM THAT SHE SPOKE TO DR. SWANSON LAST NIGHT AND PUT IN DISCHARGE ORDER TO GO HOME LAST NIGHT. RESIDENT ATHLETIC TRAINER NURSE NOTIFIED. CM NOTIFED PT WHO IS IN AGREEMENT WITH GOING HOME TODAY. CM ASSISTED PT WITH CALLING HER SON WHO WILL PICK HER UP AT [facility] THIS MORNING. CM FAXED DISCHARGE INFORMATION TO [facility] AT [phone], CM CALLED THOMAS AT [facility] AT [phone] AND NOTIFIED OF DISCHARGE TODAY. ANA ROSA Navarro MANAGEMENT DCP- Discharge Planning Updated by [email or web address]: Cory Cline on 01/08/19 2:[address] Patient Name: SURAJ GALVIN Encounter No: [id number] : 1950 Primary Insurance: MEDICARE A & B Anticipated DC Date: 01-08-2019 Planned Disposition: Psych facility External Planned Provider: [facility] DC PLANNING NOTE: CM RECEIVED DISCHARGE ORDER TO [facility]. CM MET WITH PT IN ROOM TO DISCUSS DISCHARGE PLANNING AND NEEDS. PT ORIENTED TO SELF, TIME, PLACE AND SITUATION. PT REPORTS LIVING AT HOME INDEPENDENTLY WITH HER ADULT SON. PT HAS CANE, WALKER, ROLLING WALKER, SHOWER CHAIR AND HOME OXYGEN FROM [facility] [place]. PT HAS HOME HEALTH WITH [facility] AND CANNOT HAVE PHYSICAL THERAPY UNTIL HER SHOULDER SURGERY HAS HEALED AND CLEARED BY DR. BINGHAM. CM DISCUSSED AVAILABILITY OF HOME HEALTH, REHAB SERVICES AND MEDICAL EQUIPMENT. PT DENIES DISCHARGE NEEDS, REPORTS HER SON WILL PICK HER UP FOR DISCHARGE HOME. IMPORTANT MESSAGE FROM MEDICARE PROVIDED AND EXPLAINED. PT ASKED FOR CM TO TELL HER ABOUT [facility]. CM EXPLAINED IT IS A LOCKED PSYCHIATRIC FACILITY AND THE DOCTOR WOULD EVALUATE HER TO ENSURE THERE ARE NO MENTAL PROBLEMS THAT NEED TO BE ADDRESS. PT ADMITS SHE WAS CONFUSED UPON ARRIVAL AND HAD NOT BEEN TAKING HER MEDICATIONS WHEN SHE DID NOT THINK SHE COULD AFFORD THEM. PT STATES SHE KNOWS NOW THEY ARE IMPORTANT AND CAN AFFORD HER MEDICATIONS AND WILL TAKE PRESRIBED. PT DOES NOT WANT TO GO TO [facility] AND PREFERS TO GO HOME. CM SPOKE TO DEJAN GREENBERG WHO CONTACTED DR. CABRERA WHO INFORMED THAT PT DOES NOT HAVE A CHOICE AND MUST GO TO [facility]. CM NOTIFIED PT IN ROOM. PT STATES SHE IS NOT HAPPY WITH THE DECISION BUT WILL GO TO BE EVALUATED AT [facility]. RESIDENT ATHLETIC TRAINER NURSE AND DEJAN GREENBERG NOTIFIED. ANA ROSA NAVARRO DCPIA - Discharge Planning Initial Assessment Updated by [id number]: Cory Cline on 01/08/19 2:54 pm * Is the patient Alert and Oriented? Yes * How many steps to enter\exit or inside your home? 2 W/ RAILS * PCP DR. AARON KWAN * Pharmacy [facility] [place] * Preadmission Environment Home with Family * ADLs Independent * Equipment Cane Oxygen Rolling Walker Shower Chair Walker * Other Equipment OXYGEN AT NIGHT - [facility] [place] IS PROVIDER * List name and contact numbers for known caregivers / representatives who currently or will assist patient after discharge: LIN MALONE, YAIMA, * Verbal permission to speak to the caregivers and representatives has been obtained from the patient. Yes * Community resources currently utilized Home Health * Please name any agencies selected above. [facility] * Additional services required to return to the preadmission environment? Yes * Can the patient safely return to the preadmission environment? Yes * Has this patient been hospitalized within the prior 30 days at any hospital? No Coverage Notice Reviewer: AUSTIN Cline Notice Issued Date-Time: 01/08/2019 13:20 Notice Type: IM Discharge Notice Notice Delivered To: Patient Relationship to Patient: Shift Supervisor Name: Delivery Method: HAND - Hand Delivered Candice Days: Prior Verbal Notification: Recipient Understood Notice: Yes Recipient Signature: Yes Med Rec Note Co-signed by Attending: Coverage Notice Comment: Reviewer: AUSTIN Cline Notice Issued Date-Time: 01/09/2019 9:00 Notice Type: Patient Choice Letter Notice Delivered To: Patient Relationship to Patient: Shift Supervisor Name: Delivery Method: HAND - Hand Delivered Candice Days: Prior Verbal Notification: Recipient Understood Notice: Yes Recipient Signature: Yes Med Rec Note Co-signed by Attending: Coverage Notice Comment: [facility] Last DP export: 01/09/19 10:43 a Patient Name: SURAJ GALVIN Page [phone] at 1153 All edits/amendments must be made on the electronic document DICTATION DATE: 01/09/19 1153 AUTHORIZATION REP: DAREK 01/09/19 1153 RPT#: [id number] DC DATE: STATUS: ADM IN [facility] [address] [place] [address] END OF REPORT
== END 2019-01-09 13:42 | disposition home health service (06) | DRG 641 ==
LOC: D.ER 13:33 → D.EDHOLD 22:31 → D.M2 22:31
PROVIDERS: Family Medicine; ADMIT Internal Medicine Nephrology; ATTEND Internal Medicine Nephrology
DX: E87.6 Hypokalemia (principal); F32.3 Major depressive disorder, single episode, severe with psychotic features; F03.91 Unspecified dementia, unspecified severity, with behavioral disturbance; F22 Delusional disorders; E03.9 Hypothyroidism, unspecified; J44.9 Chronic obstructive pulmonary disease, unspecified; E83.42 Hypomagnesemia; I25.10 Atherosclerotic heart disease of native coronary artery without angina pectoris; R44.1 Visual hallucinations; K21.9 Gastro-esophageal reflux disease without esophagitis

== ENCOUNTER → 2019-01-29 11:26 | Outpatient (CLI) | payer MEDICARE, BC ==
[2019-01-07 15:02] VITALS: BMI 30.4
== END | disposition home or self-care (01) ==
LOC: D.HCCARDIO 11:26
PROVIDERS: ATTEND Internal Medicine Cardiovascular Disease
DX: R07.2 Precordial pain (principal)

== ENCOUNTER 2019-02-10 10:58 | Outpatient (CLI) | payer MEDICARE, BC ==
[~2019-02-10] VITALS: Ht 160 cm; Wt 81.4 kg
--- NOTE | ~2019-02-10 | HEMODYNAMI ---
PATIENT:SURAJ GALVIN MEDICAL RECORD: [id number] : 50 LOCATION:[facility] ADMISSION DATE: 02/10/19 Generatedon:02/10/201914:29 Patient name: SURAJ GALVIN Patient #: [id number] SSN: D OB: 1950 Date of study: 02/10/2019 Page: Of Hemodynamic Procedure Report Patient Data Patient Demographics Procedure consent was obtained First Name: SURAJ Gender: Female Last Name: GLENIS : 1950 Middle Initial: D Age: 68 year(s) Patient #: [id number] Race: Additional ID: [id number] Contact details [address]: [address] [place] [address] State: [place] City: [place] Zip code: [address] Past Medical History Allergies Allergen Reaction Date Comments Reported Other allergy 09/10/2015 TIZANIDINE,AND LATEX Other allergy 09/04/2017 TIZANIDINE, LATEX Admission Admission Data Admission Date: 02/10/2019 Admission Time: 10:58 Procedure Procedure Types Cath Procedure [facility]/IVUS FFR Initial Sedation Charges Moderate Sedation up to 30 minutes Procedure Description Procedure Date Procedure Date: 02/10/2019 Procedure Start Time: 13:43 Procedure End Time: 14:12 Procedure Staff Name Function Kayleigh Fournier RT Monitor Syl Dickens RT Scrub Ugo Foley MD Performing Physician Neo Patel RN Nurse Corey Laura RT Medical Coding Manager Procedure Data Cath Procedure Fluoroscopy Diagnostic fluoroscopy Total fluoroscopy Time: 4.8 time: 4.8 min min Diagnostic fluoroscopy Total fluoroscopy dose: 698 dose: 698 mGy mGy Contrast Material Contrast Material Type Amount (ml) Isovue 300 99 Entry Location Entry Primary Successful Side Size Upsize Upsize Entry Closure Succes sful Closure Location (Fr) 1 (Fr) 2 (Fr) Remarks Device Remarks Femoral Right 5 Fr 6 Fr Exoseal artery Short Estimated blood loss: 10 ml Diagnostic catheters Device Type Used For End Catheter Placement MULTIPACK JL 4.0 5Fr Left Coronary catheter Angiography MULTIPACK 3DRC 5Fr Right Coronary catheter Angiography MULTIPACK Pigtail 5 Fr LV Angiography catheter Procedure Complications No complications Procedure Medications Medication Administration Route Dosage 0.9% NaCl I.V. 100 ml/hr Oxygen etCO2 Nasal cannula 2 l/min Heparin Flush Bag added to field 2 bags (1000units/500ml NS) Lidocaine 2% added to field 20 Versed I.V. 1 mg Fentanyl I.V. 50 mcg Versed I.V. 1 mg Fentanyl I.V. 50 mcg Heparin Bolus I.V. 8000 units Nitroglycerin IC/IA I.C. 100 mcg Hemodynamics Rest Heart Rate: 21 (bpm) Pressure Samples Time Site Value (mmHg) Purpose Heart Use Rate(bpm) 13:53 LV 98/8,14 EDP 62 13:54 LV 133/-1,22 Pullback 63 13:54 AO 148/99(76) Pullback 63 Gradients Valve Time Site 1 Site 2 Mean SEP/DFP Peak To Heart Use (mmHg) (sec/min) Peak Rate (mmHg) (bpm) Aortic 13:54 LV AO 0 23 0 63 133/-1,22 148/99(76) Calculations Valve P-P Mean Valve Index Valve Source Name Gradient Area Flow (cm2) Aortic 0 0 0 0 Snapshots Pre Cath Intra NCS Post Cath Vital Signs Time Heart Resp SPO2 etCO2 NIBP (mmHg) Rhythm Pain Sedation Rate (ipm) (%) (mmHg) Status Level (bpm) 13:26:16 62 16 98 37.4 182/149(165) NSR 0 (11) 10(A) , No pain 13:30:36 58 19 95 35.2 101/62(75) NSR 0 (11) 10(A) , No pain 13:34:38 60 19 95 38.1 116/70(91) NSR 0 (11) 10(A) , No pain 13:38:46 59 19 95 29.9 112/65(84) NSR 0 (11) 10(A) , No pain 13:42:52 59 14 96 38.2 122/68(117) NSR 0 (11) 10(A) , No pain 13:46:59 57 18 95 35.9 113/71(87) NSR 0 (11) 10(A) , No pain 13:51:01 59 18 95 16.4 126/76(95) NSR 0 (11) 10(A) , No pain 13:55:11 61 19 95 38.9 131/66(99) NSR 0 (11) 10(A) , No pain 14:00:18 61 19 94 14.9 95/56(72) NSR 0 (11) 9(A) , No pain 14:04:20 60 18 94 0 91/56(81) NSR 0 (11) 9(A) , No pain 14:09:11 60 8 95 41.9 123/68(99) NSR 0 (11) 9(A) , No pain Medications Time Medication Route Dose Verified Delivered Reason Notes Effectiveness by by 13:26:10 0.9% NaCl I.V. 100 Neo Neo Per physician ml/hr Jorge Patel RN RN 13:26:24 Oxygen etCO2 2 Neo Neo for low 02 sats Nasal l/min Jorge Patel cannula RN RN 13:26:44 Heparin Flush added 2 Neo Neo used for Bag to bags Lorchristopher Patel procedure (1000units/500ml RN RN NS) 13:26:55 Lidocaine 2% added 20ml Neo Neo for local to vial Lorchristopher Patel anesthetic RN RN 13:38:55 Versed I.V. 1 mg Neo Neo for sedation Jorge Patel RN RN 13:39:03 Fentanyl I.V. 50 Neo Neo for sedation mcg Jorge Patel RN RN 13:48:55 Versed I.V. 1 mg Neo Neo for sedation Jorge Patel RN RN 13:48:59 Fentanyl I.V. 50 Neo Neo for sedation mcg Jorge Patel RN RN 13:58:08 Heparin Bolus I.V. 8,000 Neo Neo for units Jorge Patel anticoagulation RN RN 13:58:24 Nitroglycerin I.C. 100 Neo Ugo for IC/IA mcg Jorge andrea sprayer insecticide Log Time Note 12:34:46 Diagnostic Cath Status : Elective 12:35:59 Time tracking: Regular hours (M-F 7:00 - 5:00) 12:36:03 Plan of Care:Hemodynamics will remain stable., Cardiac rhythm will remain stable., Comfort level will be maintained., Respiratory function will remain adequate., Patient/ family verbilizes understanding of procedure., Procedure tolerated without complication., Recovers from procedure without complications.. 13:16:02 Corey Laura RT(R) sent for patient. Start room use. 13:19:52 Patient received from Pre/Post Procedure Room to CCL 2 Alert and oriented. Tansferred to table in Supine position. 13:19:53 Warm blankets applied, and christina hugger turned on for patient comfort. 13:19:54 Correct patient and procedure confirmed by team. 13:19:56 Signed procedure consent form obtained from patient. 13:19:57 ECG and BP/O2 sat monitors applied to patient. 13:25:05 Vital chart was started 13:25:17 Rhythm: sinus rhythm 13:26:10 0.9% NaCl 100 ml/hr I.V. was administered by Neo Patel RN; Per physician; 13:26:24 Oxygen 2 l/min etCO2 Nasal cannula was administered by Neo Patel RN; for low 02 sats; 13:26:41 Full Disclosure recording started 13:26:43 Baseline sample Acquired. 13:26:44 Heparin Flush Bag (1000units/500ml NS) 2 bags added to field was administered by Neo Patel RN; used for procedure; 13:26:55 Lidocaine 2% 20ml vial added to field was administered by Neo Patel RN; for local anesthetic; 13:26:59 H&P Date Dictated: 01/21/2019 Within 30 days and on chart., H&P Addendum completed by physician on day of procedure. (MUST COMPLETE FOR ALL OUTPATIENTS). 13:27:00 Pre-procedure instructions explained to patient. 13:27:01 Pre-op teaching completed and patient verbalized understanding. 13:27:06 Family in patients room. 13:27:08 Patient NPO since Midnight. 13:27:17 Is the patient allergic to Iodine/contrast media? No. 13:27:33 Is patient on blood thinner?Yes 13:27:35 ACC The patient was administered the following blood thiners within the last 24 hours: ACCPlavix 13:27:36 Patient diabetic? No. 13:27:43 Previous problem with sedation/anesthesia? No ? 13:27:45 Snore? No 13:27:46 Sleep apnea? No 13:27:47 Deviated septum? No 13:27:52 Sticks out tongue? Yes 13:27:52 Opens mouth fully? Yes 13:28:23 Airway obstruction? No ? 13:28:27 Dentures? Yes IN 13:28:32 Pre procedure: right dorsailis pedis pulse 2+ Normal; easily identifiable; not easily obliterated 13:28:35 Patient pain scale 0/10 ?. 13:28:44 IV patent on arrival in left forearm with 0.9% NaCl at [facility]. 13:28:46 Lab results completed and on chart. 13:28:50 Right groin area was prepped with chlora-prep and draped in sterile fashion 13:28:51 Sharps counted by scrub and verified by R.N. 13:28:51 Alarms reviewed by R. N. 13:28:55 Use device set Femoral Dx 13:28:56 Bag Decanter (2002S) opened to sterile field. 13:28:56 ACIST Syringe (11093) opened to sterile field. 13:28:57 DIAGNOSTIC WIRE .035 260cm J wire (540699) opened to sterile field. 13:28:57 Medline Cath Pack ([id number]) opened to sterile field. 13:28:58 ACIST Hand Control (29069) opened to sterile field. 13:28:59 ACIST Manifold (79520) opened to sterile field. 13:29:00 DIAGNOSTIC Multipack 5Fr catheter set (JN7531) opened to sterile field. 13:29:01 Tegaderm 4 x 4 (1626W) opened to sterile field. 13:29:02 SHEATH 5FR [place] (NWT658) opened to sterile field. 13:38:13 Zero performed for pressure channel P1 13:38:15 Final Timeout: patient, procedure, and site verified with staff and physician. All members of the team are in agreement. 13:38:17 Right groin site verified by team. 13:38:19 Maximum allowable Isovue 300 dose 300ml. Physician notified. (300ml for normal creatinines. For patients with creatinine of 1.7 or higher multiply weight(kg) x 5 divided by creatinine.) 13:38:23 Fire Safety Assessment: A--An alcohol-based skin anteseptic being used preoperatively., C--Open oxygen or nitrous oxide is being used., D--An ESU, laser, or fiber-optic light is being used. 13:38:25 Physical assessment completed. ASA score P 2 - A patient with mild systemic disease as per Ugo Foley MD. 13:38:29 Sedation plan: IV Moderate Sedation Medication:Versed, Fentanyl 13:38:55 Versed 1 mg I.V. was administered by Neo Patel RN; for sedation; 13:39:03 Fentanyl 50 mcg I.V. was administered by Neo Patel RN; for sedation; 13:43:28 Procedure started. 13:43:32 Local anesthetic to right femoral artery with Lidocaine 2% by Ugo Foley MD.INITIAL ACCESS ONLY 13:45:16 A 5 Fr sheath was inserted into the Right Femoral artery 13:46:45 A MULTIPACK JL 4.0 5Fr catheter was advanced over the wire and used for Left Coronary Angiography. 13:48:55 Versed 1 mg I.V. was administered by Neo Patel RN; for sedation; 13:48:59 Fentanyl 50 mcg I.V. was administered by Neo Patel RN; for sedation; 13:50:45 Catheter removed. 13:51:05 A MULTIPACK 3DRC 5Fr catheter was advanced over the wire and used for Right Coronary Angiography. 13:51:18 Catheter removed. 13:51:24 A MULTIPACK Pigtail 5 Fr catheter was advanced over the wire and used for LV Angiography. 13:53:29 LV gram done using ORDAZ 13:53:30 LV hemodynamics recorded. 13:53:32 Injector settings: Ml/sec: 10, Volume: 20, 13:54:08 EF : 50 % 13:54:32 Catheter removed. 13:54:36 Use device set FOLEY PCI 13:54:37 SHEATH 6FR [place] (EFF839) opened to sterile field. 13:54:40 TUBING High Pressure Extension Tubing (Og) ([id number]) opened to sterile field. 13:54:41 INFLATOR Merit BasixCompak (CF3437) opened to sterile field. 13:54:45 BMW 300cm [place] 2 J wire ([id number]) opened to sterile field. 13:57:05 Sheath upsized to a 6 Fr Short. 13:57:22 6 Fr XBLAD 4.0 guide catheter was inserted over the wire 13:58:08 Heparin Bolus 8,000 units I.V. was administered by Neo Patel RN; for anticoagulation; 13:58:24 Nitroglycerin IC/IA 100 mcg I.C. was administered by Ugo Foley MD; for vasodilation; 14:01:34 [place] Verrata Plus pressure wire (94123M) opened to sterile field. 14:03:25 FFR/IFR wire advanced. 14:07:01 Wire advanced across lesion. 14:07:16 MLAD lesion measured at 1.00 with IFR 14:07:27 Wire removed. 14:07:38 Guide catheter removed. 14:09:21 Sheath removed intact; hemostasis achieved with Exoseal to the Right Femoral artery. 14:09:23 Procedure ended.(Physican Out) 14:10:01 Fluoroscopy time 04.80 minutes. 14:10:04 Fluoroscopy dose: 698 mGy 14:10:04 Flurop Dose total: 698 14:10:08 Contrast amount:Isovue 300 99ml. 14:10:09 Sharps counted by scrub and verified by R.N. 14:10:11 Insertion/operative site no bleeding no hematoma. 14:10:14 Post-op/insertion site Right Femoral artery dressed using a 4 x 4 and Tegaderm. 14:10:37 Post right femoral artery:stable, clean and dry 14:10:39 Post Procedure Pulses reassessed and unchanged 14:10:41 Post-procedure physical assessment completed. ASA score P 2 - A patient with mild systemic disease as per Ugo Foley MD. 14:10:43 Post procedure rhythm: unchanged. 14:10:45 Estimated blood loss: 10 ml 14:10:46 Patient needs reinforcement of post procedure teaching. 14:10:46 Post procedure instruction explained to patient.Patient verbalizes understanding. 14:10:59 Procedure type changed to Cath procedure, Diagnostic procedure, LHC, LHC w/Coronaries, FFR/IVUS, FFR Initial, Sedation Charges, Moderate Sedation up to 30 minutes 14:11:20 Procedure Complication : No complications 14:11:22 See physician's report for complete and final results. 14:11:25 GUIDE 6FR XBLAD 4.0 catheter ([id number]) opened to sterile field. 14:11:31 EXOSEAL 6Fr (EX600) opened to sterile field. 14:11:53 Procedure and supply charges have been captured, reviewed, submitted and are correct. 14:12:21 Femstop placed over the right femoral artery at 140 mmHg. Hemostasis achieved. 14:12:34 FEMSTOP Gold (J67652) opened to sterile field. 14:12:40 Vital chart was stopped 14:12:42 Report given to Pre/Post Procedure Room. 14:12:49 Post right femoral artery:oozing 14:12:54 Patient transfered to Pre/Post Procedure Room with Stretcher. 14:12:56 Full Disclosure recording stopped 14:12:56 Procedure ended. 14:13:00 End room use (Document Last) Device Usage Item Name Manufacture Quantity Catalog Hospital Part Current Minima l Lot# / Number Charge Number Stock Stock Serial# Code ACIST Acist 1 96769 793536 466996 563602 20 Syringe Medical (89711) Systems Inc Bag Microtek 1 2001S 235345 50557 111510 5 Decanter Medical Inc. () Medline Medline 1 [id number] 862644 31085 612375 5 Cath Pack ([id number]) DIAGNOSTIC St Manuel 1 551139 498218 430647 309082 30 WIRE .035 260cm J wire (719047) ACIST Hand Acist 1 23970 146456 719422 038308 5 Control Medical (01800) Systems Inc ACIST Acist 1 36994 466763 265918 248341 5 Manifold Medical (74714) Systems Inc DIAGNOSTIC Cardinal 1 RH8793 020231 54595 349852 30 Multipack Health 5Fr catheter set (VB0266) Tegaderm 4 3M 1 1626W 309941 749785 947459 5 x 4 (1626W) SHEATH 5FR Terumo 1 REJ364 549160 464082 445934 5 [place] (LHB347) MULTIPACK Cardinal 1 405550 5 JL 4.0 5Fr Health catheter MULTIPACK Cardinal 1 297721 5 3DRC 5Fr Health catheter MULTIPACK Cardinal 1 836956 5 Pigtail 5 Health Fr catheter SHEATH 6FR Terumo 1 QBB870 804279 032283 616493 40 [place] (XUE191) TUBING High Merit 1 [id number] 699035 24293 477969 10 Pressure Medical Extension Tubing (Foley) (JH3867T) INFLATOR Merit 1 XX0455 553151 278736 616086 15 [facility] Medical BasixCompak (XQ6624) BMW 300cm [place] 1 [id number] 751314 592824 297612 5 [place] 2 Vascular J wire (5521389T) [place] Auburndale 1 83596T 754618 666577600 845404 5 Verrata Plus pressure wire (63403T) GUIDE 6FR Cardinal 1 [id number] 723615 472078 999245 3 XBLAD 4.0 Health catheter (03533725) EXOSEAL 6Fr Cardinal 1 EX600 349951 597137 877289 10 (EX600) Health FEMSTOP St Manuel 1 N02636 740309 512283 466928 5 Gold (Q94711) Signature Audit [place] Stage Time Signature Unsigned Intra-Procedure 02/10/2019 Kayleigh Victor Counts 2:13:10 PM Counts RT(R) RT(R) 02/10/2019 2:26:37 PM Intra-Procedure 02/10/2019 Kayleigh 2:28:57 PM Counts RT(R) Signatures Monitor : Kayleigh Signature : Counts RT Date : Time : [facility] [address] [place] [address]
[2019-02-10] MEDS ORDERED: NORVASC2.5 MG PO (11:09)
[2019-02-10] MEDS ORDERED: BUPROPION HCL200 M1 PO (11:10)
[2019-02-10] MEDS ORDERED: DULERA 100 MCG8.8 GM INH (11:11)
[2019-02-10] MEDS ORDERED: NEURONTIN600 MG PO (11:13)
[2019-02-10] MEDS ORDERED: HYDROCHLOROTHIA25 MG PO (11:14)
[2019-02-10] MEDS ORDERED: NITROSTAT0.4 MG SL (11:15)
[2019-02-10] MEDS ORDERED: PERCOCET 5-3251 TAB PO (11:16)
[2019-02-10] MEDS ORDERED: PROTONIX40 MG PO (11:17)
[2019-02-10] MEDS ORDERED: MIRAPEX1 MG PO (11:18)
[2019-02-10] MEDS ORDERED: ZANTAC300 MG PO (11:19)
[2019-02-10 11:24] VITALS: BP 139/65; Ht 160 cm; Wt 81.4 kg
[2019-02-10 11:49] LABS: ANION GAP 12.4 mmol/L (8-16); CALCIUM 9.7 mg/dL (8.5-10.1); CARBON DIOXIDE 28.6 mmol/L (21.0-32.0); CREATININE - SERUM 1.1 mg/dL (0.6-1.3)
[2019-02-10 12:35] LABS: BASOPHILS 0.7 % (0-2); EOSINOPHILS 1.6 % (0-7); HEMATOCRIT 41.6 % (36.0-48.0); HEMOGLOBIN 13.9 g/dL (12-16); LYMPHOCYTES 43.8 % (15-50); MCH 32.2 pg (26.0-34.0); MCHC 33.4 g/dL (31.0-37.0); MCV 96.3 fL (80.0-100.0); MEAN PLATELET VOLUME 9.9 fL (7.4-10.4); MONOCYTES 9.6 % (2-11); NEUTROPHILS 44.3 % (40-80); PLATELET COUNT 312 10x3/uL (130-400); RBC 4.32 10x6/uL (4.00-5.40); WBC 6.8 10x3/uL (4.8-10.8)
[2019-02-10] MEDS ORDERED: ISOSORBIDE MONO30 M1 PO (14:38)
--- NOTE | 2019-02-10 15:02 | NUR ---
1445 FEMSTOP INTACT WITH PRESSURE AT 90, PLACED BY WIRE STRAIGHTENING MACHINE OPERATOR STAFF PRIOR TO PT ARRIVAL FOR SLIGHT OOZING AT SITE. NO HEMATOMA NOTED. PEDAL PULSES PALPABLE. HOB IS FLAT, PT DENIES ANY C/O. SON AT BEDSIDE. CALL LIGHT IN REACH.
--- NOTE | 2019-02-10 15:39 | NUR ---
20 MM PRESSURE WEANED FROM FEMSTOP WITH NO BLEEDING NOTED. PEDAL PULSES PALPABLE. HOB IS FLAT, VSS, PT DENIES ANY C/O.
--- NOTE | 2019-02-10 15:58 | NUR ---
FEMSTOP PRESSURE WEANED BY 20 MM, NO BLEEDING OR HEMATOMA NOTED. PEDAL PULSES PALPABLE. HOB IS FLAT, MALLORY PO FLUIDS BUT REFUSES SANDWICH. CALL LIGHT IN REACH.
--- NOTE | 2019-02-10 16:23 | NUR ---
1615 FEMSTOP PRESSURE WEANED BY 30 MM HG
--- NOTE | 2019-02-10 16:50 | NUR ---
OOZING NOTED AT CATH SITE, FEMSTOP PRESSURE INCREASED TO 120, OOZING CEASED, WILL CONTINUE TO MONITOR. PT DENIES ANY C/O. RESP WITH EASE, PEDAL PULSES PALPABLE.
--- NOTE | 2019-02-10 17:50 | NUR ---
FEMSTOP PRESSURE DECREASED BY 20 MM HG WITH NO OOZING NOTED. PULSES PALPABLE, HOB IS FLAT, PT IS ALERT AND DENIES ANY C/O.
--- NOTE | 2019-02-10 18:20 | NUR ---
FEMSTOP PRESSURE WEANED BY 30 MM HG WITH NO OOZING NOTED. PULSES PALPABLE, HOB IS FLAT, PT ALERT AND DENIES ANY C/O. REFUSES SANDWICH BUT IS MALLORY PO FLUIDS AND ICE CREAM, NO FAMILY AT BEDSIDE, CALL LIGHT IN REACH.
--- NOTE | 2019-02-10 18:53 | NUR ---
FEMSTOP PRESSURE WEANED BY 20 WITH NO OOZING NOTED. NO NEW AREA OF HEMATOMA NOTED. PEDAL PULSES PALPABLE. PT DENIES ANY C/O. VSS. HOB IS FLAT,
--- NOTE | 2019-02-10 19:08 | NUR ---
FEMSTOP PRESSURE DECREASED BY 40, NO OOZING NOTED. WILL MONITOR.
--- NOTE | 2019-02-10 19:20 | NUR ---
ALL PRESSURE HAS BEEN WEANED FROM FEMSTOP. FEMSTOP REMOVED AND 4X4 AND TEGADERM DRESSING PLACED TO SITE. HOB ELEVATED 30 DEGREES, PT EATING ICE CREAM, DENIES NEEDS AT THIS TIME. VSS, RESP WITH EASE.
--- NOTE | 2019-02-10 20:12 | NUR ---
1935 HOB FULLY ELEVATED, DRESSING AT CATH SITE IS CDI, AREA IS SOFT. PEDAL PULSES PALPABLE. PT ALERT AND DENIES ANY C/O. SON AT BEDSIDE. DC INSTRUCTIONS REVIEWED WTIH PT EARLIER AND REVIEWED ALSO WITH SON PRESENT. 1949 DRESSING REMAINS CDI, RIGHT GROIN IS SOFT, PEDAL PULSES PALPABLE. IV DC'D WITH CATH INTACT. ASSISTED PT TO BATHROOM AND PT VOIDED QS. 2004 ASSISTED PT WITH DRESSING FOR DC TO HOME. PT UP AMBULTING IN ROOM, DRESSING REMAINS CDI, RIGHT GROIN STABLE. PT ESCORTED TO PRIVATE AUTO VIA WC BY NURSE WITH SON DRIVING HER HOME. PT IS ALERT AND WITHOUT C/O. HAS ALL PERSONAL BELONGINGS AND DC INSTRUCITONS, IMDUR PRESCRIPTION AT TIME OF DC.
== END 2019-02-10 20:05 | disposition home or self-care (01) ==
LOC: D.CATH 10:58
PROVIDERS: ATTEND Internal Medicine Cardiovascular Disease
DX: I25.119 Atherosclerotic heart disease of native coronary artery with unspecified angina pectoris (principal); Z95.5 Presence of coronary angioplasty implant and graft; Z01.812 Encounter for preprocedural laboratory examination

== ENCOUNTER 2019-09-24 21:46 | Inpatient (IN) | payer MEDICARE, BC ==
[~2019-09-24 21:46] MED LIST changes: +DULERA 100 MCG8.8 GM INH; +HYDROCHLOROTHIA25 MG PO; +ISOSORBIDE MONO30 M1 PO; +MIRAPEX1 MG PO; +NEURONTIN600 MG PO; +NORVASC2.5 MG PO; +PERCOCET 5-3251 TAB PO; +ZANTAC300 MG PO
[2019-09-24 22:22] LABS: EOSINOPHILS 2.7 % (0-7); HEMATOCRIT 39.6 % (36.0-48.0); HEMOGLOBIN 12.8 g/dL (12-16); MCH 29.4 pg (26.0-34.0); MCHC 32.3 g/dL (31.0-37.0); MCV 90.8 fL (80.0-100.0); MEAN PLATELET VOLUME 9.4 fL (7.4-10.4); NEUTROPHILS 42.3 % (40-80); RBC 4.36 10x6/uL (4.00-5.40); RDW 15.8 % (11.5-14.5)
[2019-09-24 22:24] LABS: PLATELET COUNT 384 10x3/uL (130-400)
[2019-09-24 22:25] LABS: APPEARANCE HAZY (CLEAR); BILIRUBIN NEGATIVE (NEGATIVE); COLOR STRAW (YELLOW); EPITHELIAL CELLS 0-5 /hpf (0-5); GLUCOSE NEGATIVE (NEGATIVE); KETONE NEGATIVE (NEGATIVE); NITRITE NEGATIVE (NEGATIVE); PROTEIN NEGATIVE (NEGATIVE); RED CELLS - URINE NONE SEEN /hpf (0-5); SPECIFIC GRAVITY 1.015 (1.005-1.020); UROBILINOGEN NORMAL (NORMAL); WHITE CELLS - URINE 0-5 /hpf (NEGATIVE)
[2019-09-24 22:26] LABS: BACTERIA FEW /hpf (NEGATIVE)
[2019-09-24 22:29] LABS: UDS - AMPHET NEGATIVE QUAL (NEGATIVE); UDS - BARB NEGATIVE QUAL (NEGATIVE); UDS - BENZO NEGATIVE QUAL (NEGATIVE); UDS - COCAINE NEGATIVE QUAL (NEGATIVE); UDS - OPIATE NEGATIVE QUAL (NEGATIVE); UDS - PCP NEGATIVE QUAL (NEGATIVE); UDS - THC NEGATIVE QUAL (NEGATIVE)
[2019-09-24 22:32] LABS: APTT 24.5 SECONDS (22.8-39.4); INR 0.98 (0.85-1.17); PROTIME 12.5 SECONDS (11.6-15.0)
[2019-09-24 22:48] LABS: ALBUMIN 3.8 g/dL (3.4-5.0); ALKALINE PHOSPHATASE 117 U/L (46-116); ALT (SGPT) 1 U/L (10-68); BILIRUBIN - TOTAL 0.15 mg/dL (0.2-1.3); CALCIUM 9.8 mg/dL (8.5-10.1); CARBON DIOXIDE 28.5 mmol/L (21.0-32.0); CKMB 1.9 U/L (0.0-3.6); CREATINE KINASE 123 UL (21-215); CREATININE - SERUM 1.3 mg/dL (0.6-1.3); GLUCOSE 97 mg/dL (74-106); MAGNESIUM - SERUM 1.8 mg/dL (1.8-2.4); PROTEIN - SERUM 8.1 g/dL (6.4-8.2); THYROID STIMULATING HORMONE 2.32 uIU/mL (0.36-3.74); TROPONIN-I < 0.017 ng/mL (0.000-0.060); UREA NITROGEN 24 mg/dL (7-18); eGFR NON AFRICAN AMERICAN 43 mL/min (90-120)
[2019-09-24 22:55] LABS: CALC OSMOLALITY 286 mosm/kg (275-300); CHLORIDE - SERUM 102 mmol/L (98-107); SODIUM 142 mmol/L (136-145)
[2019-09-24 23:19] VITALS: BP 140/83
[2019-09-25 01:49] VITALS: BP 136/80; BMI 31.0
--- NOTE | 2019-09-25 02:40 | NUR ---
PT ADMIT TO FLOOR FROM ER WITH ER STAFF THIERRY LANDERS IN A WHEELCHAIR. SHE IS ADMITTED FOR NEW ONSET OF HALLUCINATIONS OF SMALL WHITE BUGS CRAWLING ON AND OUT OF HER SKIN. SHE IS A DNR AND HER CODE WORD IS ROSEMichelle. HER SON BROUGHT A SUITCASE OF CLOTHES AND TOOK HER PHONE AND PURSE HOME WITH HIM. SHE HAS A HEART MONITOR THAT HAS TO BE WITHIN 30 FEET OF HER PERSON AND THE EVIDENCE TECHNICIAN IS LABELED WITH HER NAME AND PLACED AT THE NURSING STATION CHARGING. SHE IS ABLE TO AMBULATE WITHOUT ASSISTANC AND CONTINENT OF BOWEL AND BLADDER.
--- NOTE | 2019-09-25 03:27 | NUR ---
PT STATES SHE USES O2 AT HOME 2L VIA NC. PLACED ON 2L O2. WILL CONTINUE TO MONITOR
[2019-09-25 07:11] LABS: CHOL - HDL RATIO 4.5 ratio (2.3-4.1); CHOLESTEROL, TOTAL 241 mg/dL (0-200); HDL CHOLESTEROL 54 mg/dL (32-96); LDL CHOLESTEROL 156 mg/dL (0-100); LDL-HDL RATIO 2.9 ratio (1.5-3.5); TRIGLYCERIDE 156 mg/dL (30-200)
[2019-09-25 09:50] VITALS: BP 144/63
--- NOTE | 2019-09-25 13:54 | NUR ---
The patient is calm and she is alert, she has not made any comments today about seeing or feeling any bugs at this time. She ambulates independently. Provide prescribed meds. The patient is compliant with meds. Continue POC.
[2019-09-25 15:12] VITALS: Wt 81.4 kg
[2019-09-26 00:28] VITALS: BP 140/72
--- NOTE | 2019-09-26 00:49 | NUR ---
REC'D SITTING IN THE DAYROOM. CALM AND COOPERATIVE. APPROPRIATE WHEN APPROACHED BY STAFF. CAME TO NURSE'S STATION AT BEDTIME ASKING FOR O2 TO BE TURNED ON. ADMINISTER MEDS AND MONITOR COMPLIANCE. OBSERVE FOR HALLUCINATIONS AND REFIRECT WITH RELAITY BASED INFORMATION. MED COMPLIANT. NO HALLUCINATIONS OBSERVED NOR REPORTED BY PATIENT. CONTINUE POC AND PROVIDE SAFE ENVIRONMENT.
[2019-09-26 07:12] LABS: RAPID PLASMA REAGIN Non Reactive (Non Reactive)
[2019-09-26 09:04] VITALS: BP 112/70
--- NOTE | 2019-09-26 11:36 | NUR ---
The patient is awake and she is pleasant she has not mentioned any bugs or allergies today. She ambulates independently. She has not shown any aggression today. Provide prescribed meds. The patient is compliant with meds. Continue POC.
--- NOTE | 2019-09-26 16:20 | PSY ---
PATIENT NAME:SURAJ GALVIN MEDICAL RECORD: [id number] : 50 LOCATION:[facility] ADMISSION DATE: 09/25/19 ACCOUNT: [id number] PSYCHIATRIC EVALUATION DATE OF EVALUATION: 09/25/19 IDENTIFYING DATA: The patient is 69 years old and she is admitted to the hospital on a voluntary basis. CHIEF COMPLAINT: Hallucinations. HISTORY OF PRESENT ILLNESS: [place]. She has had some ongoing hallucinations, seeing things that are not there and seeing white bugs crawling in and out of her skin. These things have been very distressing to her. Her family brought her to the local Emergency Room and they referred her here for evaluation. The patient tells me she is unsure how long this has gone on. She says that is quite bothersome to her. She has not had any other hallucinations today. She denies a history of drug or alcohol abuse, but her daughter has given this information that she overdosed on ecstasy and was intubated earlier this year. She also was hospitalized recently with a low potassium and at that time had marijuana in her system. The patient denies these now. PAST MEDICAL HISTORY: Significant for COPD, hypertension, restless leg syndrome, hypothyroidism. PAST PSYCHIATRIC HISTORY: Significant for a substance abuse that is reported to us by her family. The patient has also been treated on an outpatient basis for ongoing problems with depression. MENTAL STATUS EXAMINATION: The patient is awake, alert and oriented to person, place and somewhat to time and situation. Her mood is depressed. Her affect is constricted. Thought processes are circumstantial. Memory, concentration, and abstraction abilities are moderately impaired and she denies any active intent to harm herself or others as well as overt psychotic symptoms. ALLERGIES: LATEX AND TIZANIDINE. CURRENT MEDICATIONS: Include albuterol, Plavix, Norvasc, isosorbide mononitrate, nitroglycerin, aspirin, bupropion, Celexa, Neurontin, oxycodone, Mirapex, Seroquel, Lasix, hydrochlorothiazide, potassium, Protonix, Zantac, Estrace, Synthroid, and multivitamins. SOCIAL HISTORY: The patient is . She has adult children who are involved with her care. She denies a history of legal entanglements and substance abuse. FAMILY HISTORY: Unknown. ASSESSMENT: AXIS I: Psychosis, not otherwise specified. AXIS II: Deferred. AXIS III: Hypertension, COPD, restless leg syndrome, hypothyroidism. AXIS IV: Moderate. AXIS V: Global assessment of functioning is 40. PLAN: At this time, the patient is clearly having psychotic symptoms that in my opinion are related to polypharmacy. She takes a large amount of Benadryl in addition to the medicines listed above. I intend to taper and hold those medicines and will anticipate her mental status will improve. She may well have an underlying depressive illness, she may well have an underlying dementia, at this point, it is difficult to say. TRANSINT:[id number] Voice Confirmation ID: [id number] DOCUMENT ID: [id number] JORGE L SWANSON MD at 1620 CC: [id number] DICTATION DATE: 09/25/19 1554 SUPPORT SERVICES TECH: 09/25/19 1651 ADM IN [facility] [address] [place] [address]
[2019-09-26 18:26] LABS: ANION GAP 13.2 mmol/L (8-16); CALCIUM 8.8 mg/dL (8.5-10.1); POTASSIUM - SERUM 3.2 mmol/L (3.5-5.1)
[2019-09-26 20:00] VITALS: BP 125/64
--- NOTE | 2019-09-26 23:34 | NUR ---
B) Patient is alert and oriented to person and place, calm and cooperative I) Administered scheduled medications as ordered, monitored for safety R) Medication compliant, P) Continue plan of care.
[2019-09-27 09:09] VITALS: BP 131/76
--- NOTE | 2019-09-27 13:58 | PN ---
PATIENT:SURAJ GALVIN MEDICAL RECORD: [id number] LOCATION:[facility] ADMISSION DATE: 09/25/19 PROGRESS NOTE DATE OF SERVICE: 09/26/2019 SUBJECTIVE: The patient's case was discussed with staff. She has no new complaint. OBJECTIVE: The patient is in good behavioral control. She has had no further episodes of psychotic symptoms. She is tolerating her medications well. ASSESSMENT: Major depression. PLAN: The patient has no reason to be taking oxycodone. I also do not think that it is in her best interest to take Seroquel. I know that sounds counter intuitive since she was having psychotic symptoms, but the psychotic symptoms were likely related to polypharmacy and I do not think it is necessary for her to take this. TRANSINT:[id number] Voice Confirmation ID: [id number] DOCUMENT ID: [id number] JORGE L SWANSON MD at 1358 CC: [id number] DICTATION DATE: 09/26/19 1654 CINNAMON GRINDER: 09/26/19 1831 ADM IN [facility] [address] [id number]
--- NOTE | 2019-09-27 15:00 | NUR ---
PATIENT IS ALERT AND AWAKE. CALM AND COOPERATIVE WITH CARE AND ASSESSMENT. NO BEHAVIORS NOTED. ADMINISTERED SCHEDULED MEDS. REDIRECT AND REORIENT NEEDED. COMPLIANT WITH MEDICATIONS. NO BEHVIORS NOTED. CONTINUE PLAN OF CARE.
[2019-09-27 19:51] VITALS: BP 149/65
--- NOTE | 2019-09-27 20:29 | NUR ---
B.) PT IS ALERT AND ORIENTED X4. SHE IS PLEASANT WITH STAFF BUT KEEPS TO HERSELF. SHE IS ABLE TO AMBULATE WITHOUT ASSISTANCE AND IS CONTINENT OF B&B. I.) PROVIDED PM MEDICATIONS. R.) COMPLIANT WITH ALL MEDICATIONS. P.) WILL CONTINUE TO MONITOR.
--- NOTE | 2019-09-27 20:34 | NUR ---
PT DENIES ANY HALLUCINATIONS AT THIS TIME.
[2019-09-28 08:00] VITALS: BP 108/71
--- NOTE | 2019-09-28 11:17 | PN ---
PATIENT:SURAJ GALVIN MEDICAL RECORD: [id number] LOCATION:[facility] ADMISSION DATE: 09/25/19 PROGRESS NOTE DATE OF SERVICE: 09/27/2019 SUBJECTIVE: The patient's case was discussed with staff. She has no new complaint. OBJECTIVE: The patient is tolerating her medicines well. She is participating in treatment adequately. She has had no further problems with psychotic symptoms. ASSESSMENT: Major depression. PLAN: The patient has significantly improved. I anticipate she can be transitioned out of the hospital soon if this level of improvement continues. TRANSINT:[id number] Voice Confirmation ID: [id number] DOCUMENT ID: [id number] JORGE L SWANSON MD at 1117 CC: [id number] DICTATION DATE: 09/27/19 1429 THERMOSTAT MECHANIC: 09/27/19 1519 ADM IN [place] [id number] [place] [address]
--- NOTE | 2019-09-28 16:28 | NUR ---
ALERT AND ORIENTED.COMPLIANT WITH STAFF AND MEDS.NO BEHAVIORS OBSERVED.WILL CONTINUE WITH CURRENT PLAN OF CARE,MONITOR FOR CHANGES AND SAFETY.
[2019-09-28 19:44] VITALS: BP 129/48
--- NOTE | 2019-09-28 21:02 | NUR ---
RECEIVED IN DAYROOM. SITTING IN A RECLINING CHAIR WITH PEERS BY HER SIDE. CALM AND COOPERATIVE WITH CARE AND ASSESSMENT. NO SIGNS OF HALLUCINATIONS. REDIRECT AND REORIENT NEEDED. CONTINUES TO SIT QUIETLY. CONTINUE PLAN OF CARE
[2019-09-29 09:38] VITALS: BP 138/69
--- NOTE | 2019-09-29 10:00 | NUR ---
PATIENT IS AWAKE AND ALERT TO PERSON AND PLACE. CALM AND COOPERATIVE WITH CARE AND ASSESSMENT. ADMINISTERED SCHEDULED MEDS. COMPLIANT WITH MEDICATIONS. NO BEHAVIORS NOTED. WILL CONTINUE PLAN OF CARE.
--- NOTE | 2019-09-29 13:46 | NUR ---
Nutrition Follow-up: Diet: Regular Diet, vegetarian diet PO intake: ~66% x 9 meals Last BM: 09/27/19. WT: 179# (09/28/19); Admit wt: 174.6# (09/25/19) Meds reviewed. Labs noted: K 3.4. Continue current diet. RD following.
--- NOTE | 2019-09-29 14:00 | PN ---
PATIENT:SURAJ GALVIN MEDICAL RECORD: [id number] LOCATION:[facility] ADMISSION DATE: 09/25/19 PROGRESS NOTE DATE OF SERVICE: 09/28/2019 SUBJECTIVE: The patient's case was discussed with staff. She has no new complaint. OBJECTIVE: The patient has dramatically improved. She has had no psychotic symptoms. Her mood is mildly depressed with no thoughts of self-harm. ASSESSMENT: 1. Major depression. 2. Delirium, resolved. PLAN: The patient will be maintained on current medicines and I anticipate she can be transitioned out of the hospital and back home tomorrow. TRANSINT:[id number] Voice Confirmation ID: [id number] DOCUMENT ID: [id number] JORGE L SWANSON MD at 1400 CC: [id number] DICTATION DATE: 09/28/19 1200 ASSISTANT DIRECTOR OF PUBLIC WORKS: 09/28/19 1256 ADM IN [place] [id number] [place] [id number]
--- NOTE | 2019-09-29 15:45 | NUR ---
DISCHARGED HOME WITH SON VIA PRIVATE CAR. BELONGINGS COLLECTED AND GIVEN TO PATIENT.
--- NOTE | 2019-09-30 12:35 | PN ---
PATIENT:SURAJ GALVIN MEDICAL RECORD: [id number] LOCATION:[facility] ADMISSION DATE: 09/25/19 PROGRESS NOTE DATE OF SERVICE: 09/29/2019 SUBJECTIVE: The patient's case was discussed with staff. She has no new complaint. OBJECTIVE: The patient is in good behavioral control with limited insight about her condition. She does tolerate her medicines well. ASSESSMENT: Major depression. PLAN: The patient has shown dramatic improvement and no longer has psychotic symptoms and is set to be discharged today. Followup will be with her primary care physician in the [facility]. TRANSINT:[id number] Voice Confirmation ID: [id number] DOCUMENT ID: [id number] JORGE L SWANSON MD at 1235 CC: [id number] DICTATION DATE: 09/29/19 1508 FLATWORK TIER: 09/29/19 1819 DIS IN 09/29/19 [id number] [place] [address]
== END 2019-09-29 15:45 | disposition home or self-care (01) | DRG 125 ==
LOC: D.ER 21:46 → D.PSYCH 09-25 00:07
PROVIDERS: Family Medicine; ADMIT Psychiatry & Neurology Psychiatry; ATTEND Psychiatry & Neurology Psychiatry
DX: R44.1 Visual hallucinations (principal); I10 Essential (primary) hypertension; J44.9 Chronic obstructive pulmonary disease, unspecified; G25.81 Restless legs syndrome; E03.9 Hypothyroidism, unspecified; I25.10 Atherosclerotic heart disease of native coronary artery without angina pectoris; F41.8 Other specified anxiety disorders; K21.9 Gastro-esophageal reflux disease without esophagitis; G89.29 Other chronic pain

== ENCOUNTER → 2020-03-02 10:45 | Outpatient (CLI) | payer MEDICARE, BC ==
[2019-09-25 15:12] VITALS: BMI 30.9
== END | disposition home or self-care (01) ==
LOC: D.HCCARDIO 10:45
PROVIDERS: ATTEND Internal Medicine Cardiovascular Disease
DX: I25.10 Atherosclerotic heart disease of native coronary artery without angina pectoris (principal)

== ENCOUNTER → 2020-04-02 12:03 | Outpatient (CLI) | payer MEDICARE, BC ==
[2019-09-25 15:12] VITALS: BMI 30.9
== END | disposition home or self-care (01) ==
LOC: D.HCCECHO 12:03
PROVIDERS: ATTEND Internal Medicine Cardiovascular Disease
DX: I25.10 Atherosclerotic heart disease of native coronary artery without angina pectoris (principal)